=== PATIENT | male | born 1975 | race Native Hawaiian/Other Pacific Islander ===

== ENCOUNTER 2018-03-28 06:23 | Inpatient (IN) | payer MEDICAID, OTHER ==
[2018-03-28 07:06] LABS: Basophils # (Auto) 0.1 K/mm3 (0.0-0.1); Basophils % (Auto) 0.6 % (0.0-1.8); Eosinophils # (Auto) 0.4 K/mm3 (0.0-0.4); Eosinophils % (Auto) 4.7 % (0.0-4.3); Hematocrit 34.9 % (35.5-45.6); Hemoglobin 11.6 gm/dl (11.8-15.2); Lymphocytes # (Auto) 1.8 K/mm3 (1.2-5.4); Lymphocytes % (Auto) 21.7 % (13.4-35.0); Mean Corpuscular HGB Conc 33 % (32-34); Mean Corpuscular Volume 94 fl (84-94); Monocytes # (Auto) 0.5 K/mm3 (0.0-0.8); Monocytes % (Auto) 6.4 % (0.0-7.3); Platelet Count 173 K/mm3 (140-440); Red Blood Count 3.71 M/mm3 (3.65-5.03); Red Cell Distribution Width 14.2 % (13.2-15.2)
[2018-03-28 07:11] LABS: INR 1.01 (0.87-1.13)
[2018-03-28 07:12] LABS: Partial Thromboplastin Time 31.2 Sec. (24.2-36.6)
[2018-03-28 07:23] LABS: Calcium 9.7 mg/dL (8.4-10.2)
[2018-03-28] MEDS ORDERED: KIONEX PO ONE (09:16)
[2018-03-28] MEDS ORDERED: D50W (25GM) Syringe IV ONE ×2 (09:16→12:45)
[2018-03-28] MEDS ORDERED: HumuLIN R IV ONE (09:16)
--- NOTE | 2018-03-28 09:36 | Emergency Department Report ---
ED General Adult HPI - General Chief complaint: Medical Clearance Stated complaint: DIALYSIS Time Seen by Provider: 03/28/18 08:25 Source: patient Mode of arrival: Ambulatory Limitations: No Limitations - History of Present Illness Initial comments: Patient is a 42-year-old male who is presenting with the need for dialysis. Patient states that he has end-stage renal disease and was getting dialysis out of town but he is recently moved here. Patient went to [facility] and was admitted and had dialysis twice there. Last dialysis was 4 days ago. Patient states that he does not have dialysis clinic yet and he was told because he does not live in [facility] that he would not be able to have his dialysis set up from [facility]. Patient denies any nausea vomiting fevers or chills. Patient does state he feels somewhat tight with body fluid overloaded with some mild shortness of breath. Severity scale (0 -10): 0 - Related Data Allergies Allergy/AdvReac Type Severity Reaction Status Date / Time Penicillins Allergy Itching Verified 03/28/18 06:35 ED Review of Systems ROS: Stated complaint: DIALYSIS Other details as noted in HPI Comment: All other systems reviewed and negative ED Past Medical Hx - Past Medical History Hx Hypertension: Yes Hx Renal Disease: Yes (Dialysis M-W-F) - Surgical History Past Surgical History?: Yes Additional Surgical History: AV Fistula Left arm - Social History Smoking Status: Never Smoker Substance Use Type: None ED Physical Exam - General Limitations: No Limitations General appearance: alert, in no apparent distress - Head Head exam: Present: atraumatic, normocephalic - Eye Eye exam: Present: normal appearance - ENT ENT exam: Present: mucous membranes moist - Neck Neck exam: Present: normal inspection - Respiratory Respiratory exam: Present: normal lung sounds bilaterally. Absent: respiratory distress, wheezes, rales, rhonchi - Cardiovascular Cardiovascular Exam: Present: regular rate, normal rhythm. Absent: systolic murmur, diastolic murmur, rubs, gallop - GI/Abdominal GI/Abdominal exam: Present: soft, normal bowel sounds. Absent: distended, tenderness, guarding, rebound - Rectal Rectal exam: Present: deferred - Extremities Exam Extremities exam: Present: normal inspection - Back Exam Back exam: Present: normal inspection - Neurological Exam Neurological exam: Present: alert, oriented X3 - Psychiatric Psychiatric exam: Present: normal affect, normal mood - Skin Skin exam: Present: warm, dry, intact, normal color. Absent: rash ED Course Vital Signs 03/28/18 06:29 Temperature 98.4 F Pulse Rate 89 Respiratory 18 Rate Blood Pressure 151/95 O2 Sat by Pulse 98 Oximetry ED Medical Decision Making - Lab Data Result diagrams: 03/28/18 06:44 03/28/18 08:37 Lab Results 03/28/18 03/28/18 03/28/18 Range/Units 06:44 06:44 06:44 WBC 8.2 (4.5-11.0) K/mm3 RBC 3.71 (3.65-5.03) M/mm3 Hgb 11.6 L (11.8-15.2) gm/dl Hct 34.9 L (35.5-45.6) % MCV 94 (84-94) fl MCH 31 (28-32) pg MCHC 33 (32-34) % RDW 14.2 (13.2-15.2) % Plt Count 173 (140-440) K/mm3 Lymph % (Auto) 21.7 (13.4-35.0) % [facility] % (Auto) 6.4 (0.0-7.3) % Eos % (Auto) 4.7 H (0.0-4.3) % Baso % (Auto) 0.6 (0.0-1.8) % Lymph # 1.8 (1.2-5.4) K/mm3 [facility] # 0.5 (0.0-0.8) K/mm3 Eos # 0.4 (0.0-0.4) K/mm3 Baso # 0.1 (0.0-0.1) K/mm3 Seg Neutrophils % 66.6 (40.0-70.0) % Seg Neutrophils # 5.5 (1.8-7.7) K/mm3 PT 13.7 (12.2-14.9) Sec. INR 1.01 (0.87-1.13) APTT 31.2 (24.2-36.6) Sec. Sodium 146 H (137-145) mmol/L Potassium 8.6 H* (3.6-5.0) mmol/L Chloride 101.7 (98-107) mmol/L Carbon Dioxide 20 L (22-30) mmol/L Anion Gap 33 mmol/L BUN 125 H (9-20) mg/dL Creatinine 16.0 H (0.8-1.5) mg/dL Estimated GFR 3 ml/min BUN/Creatinine Ratio 8 % Glucose 92 (75-100) mg/dL Calcium 9.7 (8.4-10.2) mg/dL Total Bilirubin 0.30 (0.1-1.2) mg/dL AST 11 (5-40) units/L ALT 14 (7-56) units/L Alkaline Phosphatase 76 (35-129) units/L Total Protein 7.0 (6.3-8.2) g/dL Albumin 4.0 (3.9-5) g/dL Albumin/Globulin Ratio 1.3 % 03/28/18 Range/Units 08:37 WBC (4.5-11.0) K/mm3 RBC (3.65-5.03) M/mm3 Hgb (11.8-15.2) gm/dl Hct (35.5-45.6) % MCV (84-94) fl MCH (28-32) pg MCHC (32-34) % RDW (13.2-15.2) % Plt Count (140-440) K/mm3 Lymph % (Auto) (13.4-35.0) % [facility] % (Auto) (0.0-7.3) % Eos % (Auto) (0.0-4.3) % Baso % (Auto) (0.0-1.8) % Lymph # (1.2-5.4) K/mm3 [facility] # (0.0-0.8) K/mm3 Eos # (0.0-0.4) K/mm3 Baso # (0.0-0.1) K/mm3 Seg Neutrophils % (40.0-70.0) % Seg Neutrophils # (1.8-7.7) K/mm3 PT (12.2-14.9) Sec. INR (0.87-1.13) APTT (24.2-36.6) Sec. Sodium (137-145) mmol/L Potassium 8.3 H* (3.6-5.0) mmol/L Chloride (98-107) mmol/L Carbon Dioxide (22-30) mmol/L Anion Gap mmol/L BUN (9-20) mg/dL Creatinine (0.8-1.5) mg/dL Estimated GFR ml/min BUN/Creatinine Ratio % Glucose (75-100) mg/dL Calcium (8.4-10.2) mg/dL Total Bilirubin (0.1-1.2) mg/dL AST (5-40) units/L ALT (7-56) units/L Alkaline Phosphatase (35-129) units/L Total Protein (6.3-8.2) g/dL Albumin (3.9-5) g/dL Albumin/Globulin Ratio % - EKG Data -: EKG Interpreted by Tn - EKG Data 03/28/18 09:35 EKG shows a sinus rhythm at a rate of 76 axis is rightward intervals are otherwise normal there is no ST segment elevations or depressions. Interpretation is 920 - Medical Decision Making Patient's potassium level was elevated and the patient be treated with Kayexalate bicarbonate insulin and D50. Patient to be admitted to the hospitalist at this time. Critical Care Time: Yes (30) Critical care attestation.: If time is entered above; I have spent that time in minutes in the direct care of this critically ill patient, excluding procedure time. ED Disposition Clinical Impression: Hyperkalemia, ESRD (end stage renal disease) on dialysis Disposition: -09 OP ADMIT IP TO THIS HOSP Is pt being admited?: Yes Does the pt Need Aspirin: No Condition: Stable Time of Disposition: 09:45
[2018-03-28] MEDS ORDERED: ZOFRAN IV PRN (10:03)
[2018-03-28] MEDS ORDERED: PROVENTIL IH PRN (10:03)
[2018-03-28] MEDS ORDERED: TYLENOL PO PRN (10:03)
[2018-03-28] MEDS ORDERED: SODIUM CHLORIDE FLUSH SYRINGE 10 ML IV PRN (10:03)
--- NOTE | 2018-03-28 10:11 | History and Physical Report ---
History of Present Illness Date of examination: 03/28/18 Date of admission: 03/28/18 09:45 Chief complaint: Missed dialysis History of present illness: Patient is 42 year old male with past medical history of end-stage renal disease, hypertension, estimated for the past 8 years and has been receiving dialysis while in assisted. He recently was released and removed HAS NOT BEEN ABLE TO SET UP WITH AN OUTPATIENT SCHOOL MANAGER. HE PRESENTS TO US TODAY STATING THAT HE MISSES DIALYSIS AND WAS SEEN IN [place] ABOUT A WEEK AGO WAS DIALYZED AND WAS DISCHARGED. He also did have a critically elevated potassium of 8 with no acute changes on his EKG he denied any chest pain nausea vomiting. He recommended for admission. Past History Past Medical History: ESRD, hypertension Past Surgical History: Other (left arm fist) Social history: lives with family Family history: no significant family history Medications and Allergies Allergies Allergy/AdvReac Type Severity Reaction Status Date / Time Penicillins Allergy Itching Verified 03/28/18 06:35 Home Medications Medication Instructions Recorded Confirmed Last Taken Type Cholecalciferol (Vitamin D3) 50,000 unit PO QWEEK 03/28/18 03/28/18 03/27/18 History [Vitamin D3] Folic Acid [Folvite] 1 mg PO QDAY 03/28/18 03/28/18 03/27/18 History Sevelamer Carbonate [Renvela] 800 mg PO TIDWM 03/28/18 03/28/18 03/27/18 History amLODIPine [Norvasc] 10 mg PO DAILY 03/28/18 03/28/18 03/27/18 History Active Meds: Active Medications Acetaminophen (Tylenol) 650 mg PO Q4H PRN PRN Reason: Pain MILD(1-3)/Fever >100.5/MALLORY Albuterol (Proventil) 2.5 mg IH Q3HRT PRN PRN Reason: Shortness Of Breath Ondansetron HCl (Zofran) 4 mg IV Q8H PRN PRN Reason: Nausea And Vomiting Sodium Chloride (Sodium Chloride Flush Syringe 10 Ml) 10 ml IV BID CHERELLE Sodium Chloride (Sodium Chloride Flush Syringe 10 Ml) 10 ml IV PRN PRN PRN Reason: LINE FLUSH Review of Systems All systems: negative Constitutional: fatigue, weakness, malaise Cardiovascular: no chest pain, no orthopnea, no palpitations, no rapid/irregular heart beat, no lightheadedness, no shortness of breath, no dyspnea on exertion Respiratory: no cough with sputum, no excessive sputum, no shortness of breath, no dyspnea on exertion Exam - Physical Exam Narrative exam: VITAL SIGNS: Reviewed. GENERAL: The patient appeared well nourished and normally developed. Vital signs as documented. HEAD: No signs of head trauma. EYES: Pupils are equal. Extraocular motions intact. EARS: Hearing grossly intact. MOUTH: Oropharynx is normal. NECK: No adenopathy, no JVD. CHEST: Chest with clear breath sounds bilaterally. No wheezes, rales, or rhonchi. CARDIAC: Regular rate and rhythm. S1 and S2, without murmurs, gallops, or rubs. VASCULAR: Upper extremity AV graft otherwise peripheral pulses are normal fluid was noted on the graft.. ABDOMEN: Soft, without detectable tenderness. No sign of distention. No rebound or guarding, and no masses palpated. Bowel Sounds normal. MUSCULOSKELETAL: Good range of motion of all major joints. Extremities without clubbing, cyanosis or edema. NEUROLOGIC EXAM: Alert and oriented x 3. No focal sensory or strength deficit s. Speech normal. Follows commands. PSYCHIATRIC: Mood normal. SKIN: No rash or lesions. - Constitutional Vitals: Temp Pulse Resp BP Pulse Ox 98.4 F 89 18 151/95 98 03/28/18 06:29 03/28/18 06:29 03/28/18 06:29 03/28/18 06:29 03/28/18 06:29 Results - Labs CBC & Chem 7: 03/29/18 04:50 03/29/18 04:50 Labs: Laboratory Last Values WBC 8.2 K/mm3 (4.5-11.0) 03/28/18 06:44 RBC 3.71 M/mm3 (3.65-5.03) 03/28/18 06:44 Hgb 11.6 gm/dl (11.8-15.2) L 03/28/18 06:44 Hct 34.9 % (35.5-45.6) L 03/28/18 06:44 MCV 94 fl (84-94) 03/28/18 06:44 MCH 31 pg (28-32) 03/28/18 06:44 MCHC 33 % (32-34) 03/28/18 06:44 RDW 14.2 % (13.2-15.2) 03/28/18 06:44 Plt Count 173 K/mm3 (140-440) 03/28/18 06:44 Lymph % (Auto) 21.7 % (13.4-35.0) 03/28/18 06:44 [facility] % (Auto) 6.4 % (0.0-7.3) 03/28/18 06:44 Eos % (Auto) 4.7 % (0.0-4.3) H 03/28/18 06:44 Baso % (Auto) 0.6 % (0.0-1.8) 03/28/18 06:44 Lymph # 1.8 K/mm3 (1.2-5.4) 03/28/18 06:44 [facility] # 0.5 K/mm3 (0.0-0.8) 03/28/18 06:44 Eos # 0.4 K/mm3 (0.0-0.4) 03/28/18 06:44 Baso # 0.1 K/mm3 (0.0-0.1) 03/28/18 06:44 Seg Neutrophils % 66.6 % (40.0-70.0) 03/28/18 06:44 Seg Neutrophils # 5.5 K/mm3 (1.8-7.7) 03/28/18 06:44 PT 13.7 Sec. (12.2-14.9) 03/28/18 06:44 INR 1.01 (0.87-1.13) 03/28/18 06:44 APTT 31.2 Sec. (24.2-36.6) 03/28/18 06:44 Sodium 146 mmol/L (137-145) H 03/28/18 06:44 Potassium 8.3 mmol/L (3.6-5.0) H* 03/28/18 08:37 Chloride 101.7 mmol/L (98-107) 03/28/18 06:44 Carbon Dioxide 20 mmol/L (22-30) L 03/28/18 06:44 Anion Gap 33 mmol/L 03/28/18 06:44 BUN 125 mg/dL (9-20) H 03/28/18 06:44 Creatinine 16.0 mg/dL (0.8-1.5) H 03/28/18 06:44 Estimated GFR 3 ml/min 03/28/18 06:44 BUN/Creatinine Ratio 8 % 03/28/18 06:44 Glucose 92 mg/dL (75-100) 03/28/18 06:44 Calcium 9.7 mg/dL (8.4-10.2) 03/28/18 06:44 Total Bilirubin 0.30 mg/dL (0.1-1.2) 03/28/18 06:44 AST 11 units/L (5-40) 03/28/18 06:44 ALT 14 units/L (7-56) 03/28/18 06:44 Alkaline Phosphatase 76 units/L (35-129) 03/28/18 06:44 Total Protein 7.0 g/dL (6.3-8.2) 03/28/18 06:44 Albumin 4.0 g/dL (3.9-5) 03/28/18 06:44 Albumin/Globulin Ratio 1.3 % 03/28/18 06:44 Assessment and Plan Assessment and plan: Patient is 42 year old male with past medical history of end-stage renal disease, hypertension, estimated for the past 8 years and has been receiving dialysis while in assisted. He recently was released and removed HAS NOT BEEN ABLE TO SET UP WITH AN OUTPATIENT SCHOOL MANAGER. HE PRESENTS TO US TODAY STATING THAT HE MISSES DIALYSIS AND WAS SEEN IN [place] ABOUT A WEEK AGO WAS DIALYZED AND WAS DISCHARGED. He also did have a critically elevated potassium of 8 with no acute changes on his EKG he denied any chest pain nausea vomiting. He recommended for admission. ESRD Severe Hyperkalemia HYPERTENSIVE Plan Admit to STEP DOWN UNIT Patient already received the Hyperkalemia cocktail Repeat K level Consult nephrology for emergent dialysis-Discussed with team Case management for outpatient dialysis arrangement Obtain Home medication list DVT/GI prophy Plan discussed with patient and family The high probability of a clinically significant, sudden or life threatening deterioration of the [renal] system(s) required my full and direct attention, intervention and personal management. The aggregate critical care time was [75] minutes. This time is in addition to time spent performing reported procedures but includes the following: [x] Data Review and interpretation [x] Patient assessment and monitoring of vital signs [x] Documentation [x] Medication orders and management Advance Directives: Yes Plan of care discussed with patient/family: Yes
[2018-03-28] MEDS ORDERED: KIONEX ONE (12:38)
[2018-03-28] MEDS ORDERED: HumuLIN R ONE (12:47)
[2018-03-28] MEDS: SODIUM CHLORIDE FLUSH SYRINGE 10 ML IV SCH (13:10)
--- NOTE | 2018-03-28 14:15 | Consultation ---
History of Present Illness - Reason for Consult chronic renal failure, end stage renal disease, hyperkalemia - History of Present Illness Very pleasant 42-year-old male with past medical history significant for end-stage renal disease in the setting of hypertension, on chronic hemodialysis via a left brachiocephalic AV fistula for the past 8 years, being previously dialyzed at the [facility] in [place], presented to the ED secondary to chronic hemodialysis needs. He has recently moved from [place] after being released from jail and is now living with his sister. He unfortunately has not been able to set up chronic outpatient hemodialysis unit since moving from [place]. He has not seen a food sales clerk in the outpatient setting since this move. He was seen at [facility] about a week ago for similar chronic hemodialysis needs. He was dialyzed consecutively on Wednesday and of last week secondary to persistent hyperkalemia. His last hemodialysis session was of last week. He is being evaluated at this time in the emergency room department secondary to significant hyperkalemia with a potassium over 8. He doesn't have any acute abnormalities noted on his EKG. He is in sinus rhythm. He has received both a dose of calcium gluconate as well as insulin and an amp of D50. He was also given a dose of Kayexalate and did have a bowel movement per patient. I have put in stat orders for him to be dialyzed today. His sister is at bedside during the examination. Per patient he is on a Wednesday hemodialysis schedule and as mentioned [facility]. Past History Past Medical History: dialysis, hypertension, renal failure Past Surgical History: Other (AVF placement ) Social history: lives with family, other (recent incarceration, ) Family history: hypertension Medications and Allergies Allergies Allergy/AdvReac Type Severity Reaction Status Date / Time Penicillins Allergy Itching Verified 03/28/18 06:35 Home Medications Medication Instructions Recorded Confirmed Last Taken Type Cholecalciferol (Vitamin D3) 50,000 unit PO QWEEK 03/28/18 03/28/18 03/27/18 History [Vitamin D3] Folic Acid [Folvite] 1 mg PO QDAY 03/28/18 03/28/18 03/27/18 History Sevelamer Carbonate [Renvela] 800 mg PO TIDWM 03/28/18 03/28/18 03/27/18 History amLODIPine [Norvasc] 10 mg PO DAILY 03/28/18 03/28/18 03/27/18 History Active Meds: Active Medications Acetaminophen (Tylenol) 650 mg PO Q4H PRN PRN Reason: Pain MILD(1-3)/Fever >100.5/MALLORY Albuterol (Proventil) 2.5 mg IH Q3HRT PRN PRN Reason: Shortness Of Breath Ondansetron HCl (Zofran) 4 mg IV Q8H PRN PRN Reason: Nausea And Vomiting Sodium Chloride (Sodium Chloride Flush Syringe 10 Ml) 10 ml IV BID CHERELLE Last Admin: 03/28/18 13:10 Dose: 10 ml Documented by: Sodium Chloride (Sodium Chloride Flush Syringe 10 Ml) 10 ml IV PRN PRN PRN Reason: LINE FLUSH Review of Systems All systems: negative Constitutional: fatigue, weakness Exam - Vital Signs Vital signs: Vital Signs Temp Pulse Resp BP Pulse Ox 98.4 F 89 18 151/95 98 03/28/18 06:29 03/28/18 06:29 03/28/18 06:29 03/28/18 06:29 03/28/18 06:29 - General Appearance General appearance: well-developed, well-nourished, appears stated age EENT: ATNC, PERRL, mucous membranes moist Neck: Present: neck supple, trachea midline Respiratory: Clear to Ascultation, Normal Exam Heart: regular, S1S2 Gastrointestinal: Present: normal, normoactive bowel sounds Integumentary: no rash, warm and dry Neurologic: no focal deficit, no asterixis, alert and oriented x3 Musculoskeletal: Present: other (negative edema) Psychiatric: mood/affect appropriate, cooperative Results - Lab Results 03/28/18 06:44 03/28/18 08:37 Most recent lab results Calcium 9.7 mg/dL (8.4-10.2) 03/28/18 06:44 Assessment and Plan - Patient Problems (1) Hyperkalemia Current Visit: Yes Status: Acute Plan to address problem: Orders placed for dialysis today. Will monitor repeat labs and see need for possible second session of dialysis tomorrow. Patient needs to be on a low potassium renal diet. (2) ESRD (end stage renal disease) on dialysis Current Visit: Yes Status: Chronic Plan to address problem: We'll continue patient on hemodialysis regimen on Wednesday schedule. We are working to have patient be placed in a chronic dialysis unit. Will discuss with case management in regards to outpatient placement. Would prefer that he be [facility] at [facility], as our group sees dialysis patients at that unit. Orders placed for hemodialysis today. (3) Hypertensive chronic kidney disease with stage 5 chronic kidney disease or end stage renal disease Current Visit: Yes Status: Chronic Plan to address problem: Continue current antihypertensive regimen. We will monitor closely. (4) Secondary hyperparathyroidism (of renal origin) Current Visit: Yes Status: Acute Plan to address problem: Patient to continue on current binder therapy with sevelamer 1 tablet with meals 3 times a day. We'll continue to monitor calcium, phosphorus, and intact PTH.
[2018-03-28] MEDS ORDERED: NACL 0.9% 100 ML IV PRN (15:57)
[2018-03-28] MEDS ORDERED: NACL 0.9 (PRIMING MACHINE ONLY DIALYSIS) MC ONE (16:33)
[2018-03-28 17:18] LABS: Hepatitis B Surface Antigen Non-Reactive (Negative); Hepatitis C Virus Antibody Non-Reactive (NonReactive)
[2018-03-29 05:26] LABS: Basophils % (Auto) 0.6 % (0.0-1.8); Eosinophils # (Auto) 0.1 K/mm3 (0.0-0.4); Eosinophils % (Auto) 2.2 % (0.0-4.3); Hematocrit 36.2 % (35.5-45.6); Lymphocytes # (Auto) 1.5 K/mm3 (1.2-5.4); Lymphocytes % (Auto) 22.5 % (13.4-35.0); Mean Corpuscular HGB Conc 33 % (32-34); Mean Corpuscular Volume 92 fl (84-94); Monocytes # (Auto) 0.5 K/mm3 (0.0-0.8); Monocytes % (Auto) 7.2 % (0.0-7.3); Platelet Count 159 K/mm3 (140-440); Red Blood Count 3.93 M/mm3 (3.65-5.03)
[2018-03-29 05:48] LABS: Calcium 9.2 mg/dL (8.4-10.2)
[2018-03-29] MEDS ORDERED: NACL 0.9% 100 ML IV PRN (07:34)
--- NOTE | 2018-03-29 07:38 | Progress Note ---
Assessment and Plan - Patient Problems (1) Hyperkalemia Current Visit: Yes Status: Acute Plan to address problem: Orders placed for dialysis today given hyperkalemia this am. Patient needs to be on a low potassium renal diet. (2) ESRD (end stage renal disease) on dialysis Current Visit: Yes Status: Chronic Plan to address problem: We'll continue patient on hemodialysis regimen on Wednesday schedule. Plan for extra session today given level of hyperkalemia noted this am on labs. We are working to have patient be placed in a chronic dialysis unit. Will discuss with case management in regards to outpatient placement. Would prefer that he be placed at [facility], as our group sees dialysis patients at that unit. Orders placed for hemodialysis today. (3) Hypertensive chronic kidney disease with stage 5 chronic kidney disease or end stage renal disease Current Visit: Yes Status: Chronic Plan to address problem: Continue current antihypertensive regimen. We will monitor closely. (4) Secondary hyperparathyroidism (of renal origin) Current Visit: Yes Status: Acute Plan to address problem: Patient to continue on current binder therapy with sevelamer 1 tablet with meals 3 times a day. We'll continue to monitor calcium, phosphorus, and intact PTH. Subjective Date of service: 03/29/18 Interval history: Tolerated HD well, labs noted, with hyperkalemia this am, but better than on first admission. Discussed with the nursing staff and have placed orders for annmarie clark to have another session today. Objective - Vital Signs Vital signs: Vital Signs - 12hr 03/28/18 03/28/18 03/28/18 19:51 20:00 22:00 Temperature 97.2 F L 97.8 F Pulse Rate 85 89 Respiratory 18 Rate Blood Pressure 154/99 03/29/18 03/29/18 00:00 04:00 Temperature 98.8 F 96.6 F L Pulse Rate Respiratory Rate Blood Pressure - General Appearance General appearance: well-developed, well-nourished, appears stated age EENT: ATNC, PERRL Neck: no JVD, no thyromegaly Respiratory: Present: Clear to Ascultation, Normal Exam Cardiology: regular, normal heart rate, S1S2, no murmurs Gastrointestinal: normoactive bowel sounds Integumentary: no rash, warm and dry Neurologic: no focal deficit, no asterixis, alert and oriented x3 Musculoskeletal: other (-edema ) Psychiatric: mood/affect appropriate, cooperative - Lab 03/29/18 04:50 03/29/18 04:50 Most recent lab results Calcium 9.2 mg/dL (8.4-10.2) 03/29/18 04:50 - Allied health notes Allied health notes reviewed: nursing Medications & Allergies - Medications Allergies/Adverse Reactions: Allergies Penicillins Allergy (Verified 03/28/18 06:35) Itching Home Medications: Home Medications Medication Instructions Recorded Confirmed Last Taken Type Cholecalciferol (Vitamin D3) 50,000 unit PO QWEEK 03/28/18 03/28/18 03/27/18 History [Vitamin D3] Folic Acid [Folvite] 1 mg PO QDAY 03/28/18 03/28/18 03/27/18 History Sevelamer Carbonate [Renvela] 800 mg PO TIDWM 03/28/18 03/28/18 03/27/18 History amLODIPine [Norvasc] 10 mg PO DAILY 03/28/18 03/28/18 03/27/18 History Active Medications: Generic Name Dose Route Start Last Admin Trade Name Freq PRN Reason Stop Dose Admin Acetaminophen 650 mg 03/28/18 10:03 Tylenol PO Q4H PRN Pain MILD(1-3)/Fever >100.5/MALLORY Albuterol 2.5 mg 03/28/18 10:03 Proventil IH Q3HRT PRN Shortness Of Breath Sodium Chloride 100 mls @ 999 mls/hr 03/28/18 15:57 Nacl 0.9% IV VERNA PRN Hypotension Ondansetron HCl 4 mg 03/28/18 10:03 Zofran IV Q8H PRN Nausea And Vomiting Sodium Chloride 10 ml 03/28/18 22:00 03/28/18 13:10 Sodium Chloride Flush Syringe 10 Ml IV 10 ml BID CHERELLE Administration Sodium Chloride 10 ml 03/28/18 10:03 Sodium Chloride Flush Syringe 10 Ml IV PRN PRN LINE FLUSH
[2018-03-29] MEDS: RENVELA PO SCH ×2 (12:00→17:44)
[2018-03-29] MEDS: NORVASC PO SCH (12:41)
[2018-03-29] MEDS: SODIUM CHLORIDE FLUSH SYRINGE 10 ML IV SCH ×3 (12:41→22:04)
[2018-03-29] MEDS: FOLVITE PO SCH (12:41)
--- NOTE | 2018-03-29 14:25 | Progress Note ---
Assessment and Plan Assessment and plan: Patient is 42 year old male with past medical history of end-stage renal disease, hypertension, estimated for the past 8 years and has been receiving dialysis [facility] in shelter. He recently was released and removed HAS NOT BEEN ABLE TO SET UP WITH AN OUTPATIENT STOPPERER ASSEMBLER. HE PRESENTS TO US TODAY STATING THAT HE MISSES DIALYSIS AND WAS SEEN IN [place] ABOUT A WEEK AGO WAS DIALYZED AND WAS DISCHARGED. He also did have a critically elevated potassium of 8 with no acute changes on his EKG he denied any chest pain nausea vomiting. He recommended for admission. ESRD Severe Hyperkalemia HYPERTENSIVE Plan Continue supportive care Restart appropraite home medications K elevated again today, will repeat K after dialysis Patient received the Hyperkalemia cocktail in the ED on admission Am LABS Nephrology input noted Case management for outpatient dialysis arrangement Obtain Home medication list DVT/GI prophy Plan discussed with patient and family Can transfer to [facility], [facility] outpatient dialysis and chair time is being arranged History Interval history: Patient seen and examined today, no new complaints. No adverse event reported overnight. Hospitalist Physical - Physical exam Narrative exam: VITAL SIGNS: Reviewed. GENERAL: The patient appeared well nourished and normally developed. Vital signs as documented. HEAD: No signs of head trauma. EYES: Pupils are equal. Extraocular motions intact. EARS: Hearing grossly intact. MOUTH: Oropharynx is normal. NECK: No adenopathy, no JVD. CHEST: Chest with clear breath sounds bilaterally. No wheezes, rales, or rho nchi. CARDIAC: Regular rate and rhythm. S1 and S2, without murmurs, gallops, or rub s. VASCULAR: LEFT Upper extremity AV graft otherwise peripheral pulses are normal fluid was noted on the graft.. ABDOMEN: Soft, without detectable tenderness. No sign of distention. No rebound or guarding, and no masses palpated. Bowel Sounds normal. MUSCULOSKELETAL: Good range of motion of all major joints. Extremities without clubbing, cyanosis or edema. NEUROLOGIC EXAM: Alert and oriented x 3. No focal sensory or strength deficit s. Speech normal. Follows commands. PSYCHIATRIC: Mood normal. SKIN: No rash or lesions. - Constitutional Vitals: Temp Pulse Resp BP Pulse Ox 97.2 F L 78 20 143/87 98 03/29/18 10:35 03/29/18 12:45 03/29/18 12:00 03/29/18 12:45 03/29/18 12:00 Results - Labs CBC & Chem 7: 03/29/18 04:50 03/29/18 04:50 Labs: Laboratory Last Values WBC 6.5 K/mm3 (4.5-11.0) 03/29/18 04:50 RBC 3.93 M/mm3 (3.65-5.03) 03/29/18 04:50 Hgb 12.0 gm/dl (11.8-15.2) 03/29/18 04:50 Hct 36.2 % (35.5-45.6) 03/29/18 04:50 MCV 92 fl (84-94) 03/29/18 04:50 MCH 31 pg (28-32) 03/29/18 04:50 MCHC 33 % (32-34) 03/29/18 04:50 RDW 14.0 % (13.2-15.2) 03/29/18 04:50 Plt Count 159 K/mm3 (140-440) 03/29/18 04:50 Lymph % (Auto) 22.5 % (13.4-35.0) 03/29/18 04:50 [place] % (Auto) 7.2 % (0.0-7.3) 03/29/18 04:50 Eos % (Auto) 2.2 % (0.0-4.3) 03/29/18 04:50 Baso % (Auto) 0.6 % (0.0-1.8) 03/29/18 04:50 Lymph # 1.5 K/mm3 (1.2-5.4) 03/29/18 04:50 [place] # 0.5 K/mm3 (0.0-0.8) 03/29/18 04:50 Eos # 0.1 K/mm3 (0.0-0.4) 03/29/18 04:50 Baso # 0.0 K/mm3 (0.0-0.1) 03/29/18 04:50 Seg Neutrophils % 67.5 % (40.0-70.0) 03/29/18 04:50 Seg Neutrophils # 4.4 K/mm3 (1.8-7.7) 03/29/18 04:50 PT 13.7 Sec. (12.2-14.9) 03/28/18 06:44 INR 1.01 (0.87-1.13) 03/28/18 06:44 APTT 31.2 Sec. (24.2-36.6) 03/28/18 06:44 Sodium 143 mmol/L (137-145) 03/29/18 04:50 Potassium 6.3 mmol/L (3.6-5.0) H* D 03/29/18 04:50 Chloride 99.2 mmol/L (98-107) 03/29/18 04:50 Carbon Dioxide 27 mmol/L (22-30) D 03/29/18 04:50 Anion Gap 23 mmol/L 03/29/18 04:50 BUN 54 mg/dL (9-20) H 03/29/18 04:50 Creatinine 10.6 mg/dL (0.8-1.5) H 03/29/18 04:50 Estimated GFR 5 ml/min 03/29/18 04:50 BUN/Creatinine Ratio 5 % 03/29/18 04:50 Glucose 83 mg/dL (75-100) 03/29/18 04:50 POC Glucose 72 (70-105) 03/28/18 12:36 Calcium 9.2 mg/dL (8.4-10.2) 03/29/18 04:50 Total Bilirubin 0.30 mg/dL (0.1-1.2) 03/28/18 06:44 AST 11 units/L (5-40) 03/28/18 06:44 ALT 14 units/L (7-56) 03/28/18 06:44 Alkaline Phosphatase 76 units/L (35-129) 03/28/18 06:44 Total Protein 7.0 g/dL (6.3-8.2) 03/28/18 06:44 Albumin 4.0 g/dL (3.9-5) 03/28/18 06:44 Albumin/Globulin Ratio 1.3 % 03/28/18 06:44 Hepatitis A IgM Ab Non-reactive (NonReactive) 03/28/18 15:59 Hep Bs Antigen Non-reactive (Negative) 03/28/18 15:59 Hep B Core IgM Ab Non-reactive (NonReactive) 03/28/18 15:59 Hepatitis C Antibody Non-reactive (NonReactive) 03/28/18 15:59
[2018-03-30 05:45] LABS: Hematocrit 36.7 % (35.5-45.6); Hemoglobin 12.3 gm/dl (11.8-15.2); Mean Corpuscular HGB Conc 34 % (32-34); Mean Corpuscular Volume 92 fl (84-94); Platelet Count 147 K/mm3 (140-440); Red Blood Count 3.98 M/mm3 (3.65-5.03); Red Cell Distribution Width 13.6 % (13.2-15.2)
[2018-03-30 05:55] LABS: Calcium 9.5 mg/dL (8.4-10.2)
[2018-03-30] MEDS ORDERED: NACL 0.9% 100 ML IV PRN (07:31)
--- NOTE | 2018-03-30 08:03 | Progress Note ---
Assessment and Plan - Patient Problems (1) Hyperkalemia Current Visit: Yes Status: Acute Plan to address problem: Orders placed for dialysis today per MWF schedule. Had extra session yesterday with improvement noted in potassium levels Patient needs to be on a low potassium renal diet. (2) ESRD (end stage renal disease) on dialysis Current Visit: Yes Status: Chronic Plan to address problem: We'll continue patient on hemodialysis regimen on Wednesday schedule. We are working to have patient be placed in a chronic dialysis unit. Will discuss with case management in regards to outpatient placement. Would prefer that he be placed at [facility], as our group sees dialysis patients at that unit. Orders placed for hemodialysis today. (3) Hypertensive chronic kidney disease with stage 5 chronic kidney disease or end stage renal disease Current Visit: Yes Status: Chronic Plan to address problem: Continue current antihypertensive regimen. We will monitor closely. (4) Secondary hyperparathyroidism (of renal origin) Current Visit: Yes Status: Acute Plan to address problem: Patient to continue on current binder therapy with sevelamer 1 tablet with meals 3 times a day. We'll continue to monitor calcium, phosphorus, and intact PTH. Subjective Date of service: 03/30/18 Interval history: No acute issues overnight. labs noted, and there was improvement in hyperkalemia after extra session of HD yesterday. Plan for HD today per his previous outpatient MWF schedule Objective - Vital Signs Vital signs: Vital Signs - 12hr 03/29/18 03/29/18 03/29/18 20:10 20:20 20:30 Temperature Pulse Rate 88 85 86 Pulse Rate [ From Monitor] Respiratory 11 L 15 19 Rate Blood Pressure 127/80 126/84 126/84 O2 Sat by Pulse 94 96 94 Oximetry 03/29/18 03/29/18 03/29/18 20:40 20:50 21:00 Temperature Pulse Rate 84 88 83 Pulse Rate [ From Monitor] Respiratory 23 15 21 Rate Blood Pressure 126/84 127/80 118/71 O2 Sat by Pulse 93 92 95 Oximetry 03/29/18 03/29/18 03/29/18 21:10 21:20 21:30 Temperature Pulse Rate 98 H 83 91 H Pulse Rate [ From Monitor] Respiratory 18 25 H 19 Rate Blood Pressure 118/71 118/71 118/71 O2 Sat by Pulse 91 96 97 Oximetry 03/29/18 03/29/18 03/29/18 21:40 21:50 22:00 Temperature Pulse Rate 88 88 83 Pulse Rate [ 70 From Monitor] Respiratory 14 15 17 Rate Blood Pressure 118/71 118/71 119/72 O2 Sat by Pulse 93 95 95 Oximetry 03/29/18 03/29/18 03/29/18 22:10 22:20 22:30 Temperature Pulse Rate 95 H 82 79 Pulse Rate [ From Monitor] Respiratory 25 H 14 19 Rate Blood Pressure 119/72 119/72 119/72 O2 Sat by Pulse 95 96 96 Oximetry 03/29/18 03/29/18 03/29/18 22:40 22:50 23:00 Temperature Pulse Rate 85 85 81 Pulse Rate [ From Monitor] Respiratory 16 11 L 21 Rate Blood Pressure 119/72 119/72 115/71 O2 Sat by Pulse 98 97 93 Oximetry 03/29/18 03/29/18 03/29/18 23:10 23:20 23:30 Temperature 98.3 F Pulse Rate 78 78 78 Pulse Rate [ From Monitor] Respiratory 18 20 21 Rate Blood Pressure 115/71 115/71 115/71 O2 Sat by Pulse 94 96 97 Oximetry 03/30/18 05:25 Temperature 98.8 F Pulse Rate 77 Pulse Rate [ From Monitor] Respiratory 18 Rate Blood Pressure 123/81 O2 Sat by Pulse 95 Oximetry - General Appearance General appearance: well-developed, well-nourished, appears stated age EENT: ATNC, PERRL Neck: no JVD, no thyromegaly Respiratory: Present: Clear to Ascultation, Normal Exam Cardiology: regular, S1S2 Gastrointestinal: normal, normoactive bowel sounds Integumentary: no rash, warm and dry Neurologic: no focal deficit, no asterixis, alert and oriented x3 Psychiatric: cooperative - Lab 03/30/18 04:31 03/30/18 04:31 Most recent lab results Calcium 9.5 mg/dL (8.4-10.2) 03/30/18 04:31 - Allied health notes Allied health notes reviewed: nursing Medications & Allergies - Medications Allergies/Adverse Reactions: Allergies Penicillins Allergy (Verified 03/28/18 06:35) Itching Home Medications: Home Medications Medication Instructions Recorded Confirmed Last Taken Type Cholecalciferol (Vitamin D3) 50,000 unit PO QWEEK 02/1103/28/18 03/27/18 History [Vitamin D3] Folic Acid [Folvite] 1 mg PO QDAY 03/28/18 03/28/18 03/27/18 History Sevelamer Carbonate [Renvela] 800 mg PO TIDWM 03/28/18 03/28/18 03/27/18 History amLODIPine [Norvasc] 10 mg PO DAILY 03/28/18 03/28/18 03/27/18 History Active Medications: Generic Name Dose Route Start Last Admin Trade Name Freq PRN Reason Stop Dose Admin Acetaminophen 650 mg 03/28/18 10:03 Tylenol PO Q4H PRN Pain MILD(1-3)/Fever >100.5/MALLORY Albuterol 2.5 mg 03/28/18 10:03 Proventil IH Q3HRT PRN Shortness Of Breath Amlodipine Besylate 10 mg 03/29/18 10:00 03/29/18 12:41 Norvasc PO Not Given DAILY [facility] Ergocalciferol 50,000 unit 03/30/18 10:00 Vitamin D2 PO [facility] Folic Acid 1 mg 03/29/18 10:00 03/29/18 12:41 Folvite PO Not Given QDAY [facility] Sodium Chloride 100 mls @ 999 mls/hr 03/30/18 07:31 Nacl 0.9% IV VERNA PRN Hypotension Ondansetron HCl 4 mg 03/28/18 10:03 Zofran IV Q8H PRN Nausea And Vomiting Sevelamer Carbonate 800 mg 03/29/18 12:00 03/29/18 17:44 Renvela PO 800 mg TIDWM CHERELLE Administration Sodium Chloride 10 ml 03/28/18 22:00 03/29/18 22:04 Sodium Chloride Flush Syringe 10 Ml IV 10 ml BID CHERELLE Administration Sodium Chloride 10 ml 03/28/18 10:03 Sodium Chloride Flush Syringe 10 Ml IV PRN PRN LINE FLUSH
[2018-03-30] MEDS: NORVASC PO SCH (09:30)
[2018-03-30] MEDS: VITAMIN D2 PO SCH (09:34)
[2018-03-30] MEDS: RENVELA PO SCH ×2 (09:35→18:38)
[2018-03-30] MEDS: FOLVITE PO SCH (09:36)
[2018-03-30] MEDS: SODIUM CHLORIDE FLUSH SYRINGE 10 ML IV SCH ×2 (10:00→21:18)
--- NOTE | 2018-03-30 16:25 | Progress Note ---
Assessment and Plan Assessment and plan: Patient is 42 year old male with past medical history of end-stage renal disease, hypertension, estimated for the past 8 years and has been receiving dialysis while in [facility]. He recently was released and removed HAS NOT BEEN ABLE TO SET UP WITH AN OUTPATIENT PROFESSOR OF GENETICS. HE PRESENTS TO US TODAY STATING THAT HE MISSES DIALYSIS AND WAS SEEN IN [place] ABOUT A WEEK AGO WAS DIALYZED AND WAS DISCHARGED. He also did have a critically elevated potassium of 8 with no acute changes on his EKG he denied any chest pain nausea vomiting. He recommended for admission. ESRD Severe Hyperkalemia HYPERTENSIVE Plan Continue supportive care Restart appropriate home medications K elevated again today, will repeat K after dialysis Patient received the Hyperkalemia cocktail in the ED on admission Am LABS Nephrology input noted Case management for outpatient dialysis arrangement Obtain Home medication list DVT/GI prophy Plan discussed with patient and family Can transfer to [facility], will outpatient dialysis and chair time is being arranged History Interval history: Patient seen and examined today, no new complaints. No adverse event reported overnight. Hospitalist Physical - Physical exam Narrative exam: VITAL SIGNS: Reviewed. GENERAL: The patient appeared well nourished and normally developed. Vital signs as documented. HEAD: No signs of head trauma. EYES: Pupils are equal. Extraocular motions intact. EARS: Hearing grossly intact. MOUTH: Oropharynx is normal. NECK: No adenopathy, no JVD. CHEST: Chest with clear breath sounds bilaterally. No wheezes, rales, or rhon chi. CARDIAC: Regular rate and rhythm. S1 and S2, without murmurs, gallops, or rubs . VASCULAR: LEFT Upper extremity AV graft otherwise peripheral pulses are normal fluid was noted on the graft.. ABDOMEN: Soft, without detectable tenderness. No sign of distention. No rebound or guarding, and no masses palpated. Bowel Sounds normal. MUSCULOSKELETAL: Good range of motion of all major joints. Extremities without clubbing, cyanosis or edema. NEUROLOGIC EXAM: Alert and oriented x 3. No focal sensory or strength deficits . Speech normal. Follows commands. PSYCHIATRIC: Mood normal. SKIN: No rash or lesions. - Constitutional Vitals: Temp Pulse Resp BP Pulse Ox 98.3 F 79 20 129/95 99 03/30/18 14:02 03/30/18 14:02 03/30/18 14:02 03/30/18 14:02 03/30/18 14:02 Results - Labs CBC & Chem 7: 03/30/18 04:31 03/30/18 04:31 Labs: Laboratory Last Values WBC 5.3 K/mm3 (4.5-11.0) 03/30/18 04:31 RBC 3.98 M/mm3 (3.65-5.03) 03/30/18 04:31 Hgb 12.3 gm/dl (11.8-15.2) 03/30/18 04:31 Hct 36.7 % (35.5-45.6) 03/30/18 04:31 MCV 92 fl (84-94) 03/30/18 04:31 MCH 31 pg (28-32) 03/30/18 04:31 MCHC 34 % (32-34) 03/30/18 04:31 RDW 13.6 % (13.2-15.2) 03/30/18 04:31 Plt Count 147 K/mm3 (140-440) 03/30/18 04:31 Lymph % (Auto) 22.5 % (13.4-35.0) 03/29/18 04:50 [place] % (Auto) 7.2 % (0.0-7.3) 03/29/18 04:50 Eos % (Auto) 2.2 % (0.0-4.3) 03/29/18 04:50 Baso % (Auto) 0.6 % (0.0-1.8) 03/29/18 04:50 Lymph # 1.5 K/mm3 (1.2-5.4) 03/29/18 04:50 [place]bert # 0.5 K/mm3 (0.0-0.8) 03/29/18 04:50 Eos # 0.1 K/mm3 (0.0-0.4) 03/29/18 04:50 Baso # 0.0 K/mm3 (0.0-0.1) 03/29/18 04:50 Seg Neutrophils % 67.5 % (40.0-70.0) 03/29/18 04:50 Seg Neutrophils # 4.4 K/mm3 (1.8-7.7) 03/29/18 04:50 PT 13.7 Sec. (12.2-14.9) 03/28/18 06:44 INR 1.01 (0.87-1.13) 03/28/18 06:44 APTT 31.2 Sec. (24.2-36.6) 03/28/18 06:44 Sodium 140 mmol/L (137-145) 03/30/18 04:31 Potassium 5.3 mmol/L (3.6-5.0) H 03/30/18 04:31 Chloride 96.4 mmol/L (98-107) L 03/30/18 04:31 Carbon Dioxide 27 mmol/L (22-30) 03/30/18 04:31 Anion Gap 22 mmol/L 03/30/18 04:31 BUN 37 mg/dL (9-20) H 03/30/18 04:31 Creatinine 8.3 mg/dL (0.8-1.5) H 03/30/18 04:31 Estimated GFR 7 ml/min 03/30/18 04:31 BUN/Creatinine Ratio 4 % 03/30/18 04:31 Glucose 84 mg/dL (75-100) 03/30/18 04:31 POC Glucose 72 (70-105) 03/28/18 12:36 Calcium 9.5 mg/dL (8.4-10.2) 03/30/18 04:31 Total Bilirubin 0.30 mg/dL (0.1-1.2) 03/28/18 06:44 AST 11 units/L (5-40) 03/28/18 06:44 ALT 14 units/L (7-56) 03/28/18 06:44 Alkaline Phosphatase 76 units/L (35-129) 03/28/18 06:44 Total Protein 7.0 g/dL (6.3-8.2) 03/28/18 06:44 Albumin 4.0 g/dL (3.9-5) 03/28/18 06:44 Albumin/Globulin Ratio 1.3 % 03/28/18 06:44 Hepatitis A IgM Ab Non-reactive (NonReactive) 03/28/18 15:59 Hep Bs Antigen Non-reactive (Negative) 03/28/18 15:59 Hep B Core IgM Ab Non-reactive (NonReactive) 03/28/18 15:59 Hepatitis C Antibody Non-reactive (NonReactive) 03/28/18 15:59
[2018-03-30] MEDS ORDERED: NACL 0.9 (PRIMING MACHINE ONLY DIALYSIS) MC ONE (17:25)
[2018-03-31 07:11] LABS: Calcium 10.2 mg/dL (8.4-10.2)
[2018-03-31] MEDS: RENVELA PO SCH ×3 (09:39→19:00)
[2018-03-31] MEDS: FOLVITE PO SCH (09:39)
[2018-03-31] MEDS: SODIUM CHLORIDE FLUSH SYRINGE 10 ML IV SCH ×2 (10:00→23:03)
--- NOTE | 2018-03-31 14:52 | Progress Note ---
Assessment and Plan Assessment and plan: Patient is 42 year old male with past medical history of end-stage renal disease, hypertension, estimated for the past 8 years and has been receiving dialysis while in [facility]. He recently was released and removed HAS NOT BEEN ABLE TO SET UP WITH AN OUTPATIENT SPECIAL FORCES WEAPONS SERGEANT. HE PRESENTS TO US TODAY STATING THAT HE MISSES DIALYSIS AND WAS SEEN IN [place] ABOUT A WEEK AGO WAS DIALYZED AND WAS DISCHARGED. He also did have a critically elevated potassium of 8 with no acute changes on his EKG he denied any chest pain nausea vomiting. He recommended for admission. ESRD Severe Hyperkalemia HYPERTENSIVE Plan Continue supportive care Restart appropriate home medications K elevated again today, will repeat K after dialysis Patient received the Hyperkalemia cocktail in the ED on admission Am LABS Nephrology input noted Case management for outpatient dialysis arrangement DVT/GI prophy Plan discussed with patient and family Awaiting home dialysis set up. Can be discharged once that is set up History Interval history: Patient seen and examined today, no new complaints. No adverse event reported overnight. Hospitalist Physical - Physical exam Narrative exam: VITAL SIGNS: Reviewed. GENERAL: The patient appeared well nourished and normally developed. Vital signs as documented. HEAD: No signs of head trauma. EYES: Pupils are equal. Extraocular motions intact. EARS: Hearing grossly intact. MOUTH: Oropharynx is normal. NECK: No adenopathy, no JVD. CHEST: Chest with clear breath sounds bilaterally. No wheezes, rales, or rhonchi. CARDIAC: Regular rate and rhythm. S1 and S2, without murmurs, gallops, or rubs. VASCULAR: LEFT Upper extremity AV graft otherwise peripheral pulses are normal fluid was noted on the graft.. ABDOMEN: Soft, without detectable tenderness. No sign of distention. No rebound or guarding, and no masses palpated. Bowel Sounds normal. MUSCULOSKELETAL: Good range of motion of all major joints. Extremities without clubbing, cyanosis or edema. NEUROLOGIC EXAM: Alert and oriented x 3. No focal sensory or strength deficits. Speech normal. Follows commands. PSYCHIATRIC: Mood normal. SKIN: No rash or lesions. - Constitutional Vitals: Temp Pulse Resp BP Pulse Ox 98.2 F 80 19 139/98 97 03/31/18 11:43 03/31/18 05:25 03/31/18 11:43 03/31/18 11:43 03/31/18 05:25 Results - Labs CBC & Chem 7: 03/30/18 04:31 03/31/18 06:30 Labs: Laboratory Last Values WBC 5.3 K/mm3 (4.5-11.0) 03/30/18 04:31 RBC 3.98 M/mm3 (3.65-5.03) 03/30/18 04:31 Hgb 12.3 gm/dl (11.8-15.2) 03/30/18 04:31 Hct 36.7 % (35.5-45.6) 03/30/18 04:31 MCV 92 fl (84-94) 03/30/18 04:31 MCH 31 pg (28-32) 03/30/18 04:31 MCHC 34 % (32-34) 03/30/18 04:31 RDW 13.6 % (13.2-15.2) 03/30/18 04:31 Plt Count 147 K/mm3 (140-440) 03/30/18 04:31 Lymph % (Auto) 22.5 % (13.4-35.0) 03/29/18 04:50 [place] % (Auto) 7.2 % (0.0-7.3) 03/29/18 04:50 Eos % (Auto) 2.2 % (0.0-4.3) 03/29/18 04:50 Baso % (Auto) 0.6 % (0.0-1.8) 03/29/18 04:50 Lymph # 1.5 K/mm3 (1.2-5.4) 03/29/18 04:50 [place] # 0.5 K/mm3 (0.0-0.8) 03/29/18 04:50 Eos # 0.1 K/mm3 (0.0-0.4) 03/29/18 04:50 Baso # 0.0 K/mm3 (0.0-0.1) 03/29/18 04:50 Seg Neutrophils % 67.5 % (40.0-70.0) 03/29/18 04:50 Seg Neutrophils # 4.4 K/mm3 (1.8-7.7) 03/29/18 04:50 PT 13.7 Sec. (12.2-14.9) 03/28/18 06:44 INR 1.01 (0.87-1.13) 03/28/18 06:44 APTT 31.2 Sec. (24.2-36.6) 03/28/18 06:44 Sodium 139 mmol/L (137-145) 03/31/18 06:30 Potassium 5.1 mmol/L (3.6-5.0) H 03/31/18 06:30 Chloride 94.6 mmol/L (98-107) L 03/31/18 06:30 Carbon Dioxide 29 mmol/L (22-30) 03/31/18 06:30 Anion Gap 21 mmol/L 03/31/18 06:30 BUN 37 mg/dL (9-20) H 03/31/18 06:30 Creatinine 8.0 mg/dL (0.8-1.5) H 03/31/18 06:30 Estimated GFR 7 ml/min 03/31/18 06:30 BUN/Creatinine Ratio 5 % 03/31/18 06:30 Glucose 91 mg/dL (75-100) 03/31/18 06:30 POC Glucose 72 (70-105) 03/28/18 12:36 Calcium 10.2 mg/dL (8.4-10.2) 03/31/18 06:30 Total Bilirubin 0.30 mg/dL (0.1-1.2) 03/28/18 06:44 AST 11 units/L (5-40) 03/28/18 06:44 ALT 14 units/L (7-56) 03/28/18 06:44 Alkaline Phosphatase 76 units/L (35-129) 03/28/18 06:44 Total Protein 7.0 g/dL (6.3-8.2) 03/28/18 06:44 Albumin 4.0 g/dL (3.9-5) 03/28/18 06:44 Albumin/Globulin Ratio 1.3 % 03/28/18 06:44 Hepatitis A IgM Ab Non-reactive (NonReactive) 03/28/18 15:59 Hep Bs Antigen Non-reactive (Negative) 03/28/18 15:59 Hep B Core IgM Ab Non-reactive (NonReactive) 03/28/18 15:59 Hepatitis C Antibody Non-reactive (NonReactive) 03/28/18 15:59
[2018-03-31] MEDS: NORVASC PO SCH (15:09)
--- NOTE | 2018-03-31 20:25 | XRay Report ---
FINAL REPORT PROCEDURE: XR CHEST 1V AP TECHNIQUE: Chest radiograph anteroposterior view. CPT 37631 HISTORY: fluid overload COMPARISON: No prior studies are available for comparison. FINDINGS: Heart: Normal. Mediastinum/Vessels: Normal. Lungs/Pleural space: Normal. Bony thorax: No acute osseous abnormality. Life support devices: None. IMPRESSION: No acute cardiopulmonary abnormality.
[2018-04-01 06:47] LABS: Calcium 9.9 mg/dL (8.4-10.2)
[2018-04-01] MEDS: RENVELA PO SCH ×3 (09:08→17:00)
[2018-04-01] MEDS: FOLVITE PO SCH (09:13)
[2018-04-01] MEDS: SODIUM CHLORIDE FLUSH SYRINGE 10 ML IV SCH (10:00)
[2018-04-01] MEDS: NORVASC PO SCH (10:00)
--- NOTE | 2018-04-01 11:46 | Progress Note ---
Assessment and Plan Assessment and plan: Acute hyperkalemia kayexalate for HD scheduled ESRD on HD per renal await outpt HD arrangement. HTN continue meds Nocompliant with HD couseled Further pt mgt per hospital course Disposition Plan: Kayexalate,. Outpt HD Total Time Spent with Patient (Minutes): 30 mins History Interval history: HPI Patient is 42 year old male with past medical history of end-stage renal disease, hypertension, estimated for the past 8 years and has been receiving dialysis while in [place]. He recently was released and removed HAS NOT BEEN ABLE TO SET UP WITH AN OUTPATIENT SALT GRINDER. HE PRESENTS TO US TODAY STATING THAT HE MISSES DIALYSIS AND WAS SEEN IN [place] ABOUT A WEEK AGO WAS DIALYZED AND WAS DISCHARGED. He also did have a critically elevated potassium of 8 with no acute changes on his EKG he denied any chest pain nausea vomiting. He recommended for admission. Subjective: Seen and exam by bedside, No new complaints, K 6.0. scheduled for HD today. Ankle Monitor noted on pt's left ankle. Hospitalist Physical - Constitutional Vitals: Temp Pulse Resp BP Pulse Ox 97.8 F 71 19 139/98 96 04/01/18 11:38 04/01/18 05:19 04/01/18 11:38 04/01/18 11:38 04/01/18 05:19 General appearance: Present: no acute distress, well-nourished - EENT Eyes: Present: PERRL, EOM intact ENT: hearing intact, clear oral mucosa - Neck Neck: Present: supple, normal ROM - Respiratory Respiratory: bilateral: CTA, negative: diminished, rales, rhonchi, wheezing - Cardiovascular Rhythm: regular Heart Sounds: Present: S1 & S2 - Extremities Extremities: pulses intact, pulses symmetrical, normal temperature, abnormal (ankle monitor left ankle) Peripheral Pulses: within normal limits - Abdominal General gastrointestinal: soft, non-tender, non-distended, normal bowel sounds - Integumentary Integumentary: Present: clear, warm, dry - Psychiatric Psychiatric: appropriate mood/affect, intact judgment & insight, memory intact - Neurologic Neurologic: CNII-XII intact, moves all extremities - Allied Health Allied health notes reviewed: nursing, social work, case management Results - Labs CBC & Chem 7: 03/30/18 04:31 04/01/18 06:07 Labs: Laboratory Last Values WBC 5.3 K/mm3 (4.5-11.0) 03/30/18 04:31 RBC 3.98 M/mm3 (3.65-5.03) 03/30/18 04:31 Hgb 12.3 gm/dl (11.8-15.2) 03/30/18 04:31 Hct 36.7 % (35.5-45.6) 03/30/18 04:31 MCV 92 fl (84-94) 03/30/18 04:31 MCH 31 pg (28-32) 03/30/18 04:31 MCHC 34 % (32-34) 03/30/18 04:31 RDW 13.6 % (13.2-15.2) 03/30/18 04:31 Plt Count 147 K/mm3 (140-440) 03/30/18 04:31 Lymph % (Auto) 22.5 % (13.4-35.0) 03/29/18 04:50 [place] % (Auto) 7.2 % (0.0-7.3) 03/29/18 04:50 Eos % (Auto) 2.2 % (0.0-4.3) 03/29/18 04:50 Baso % (Auto) 0.6 % (0.0-1.8) 03/29/18 04:50 Lymph # 1.5 K/mm3 (1.2-5.4) 03/29/18 04:50 [place] # 0.5 K/mm3 (0.0-0.8) 03/29/18 04:50 Eos # 0.1 K/mm3 (0.0-0.4) 03/29/18 04:50 Baso # 0.0 K/mm3 (0.0-0.1) 03/29/18 04:50 Seg Neutrophils % 67.5 % (40.0-70.0) 03/29/18 04:50 Seg Neutrophils # 4.4 K/mm3 (1.8-7.7) 03/29/18 04:50 PT 13.7 Sec. (12.2-14.9) 03/28/18 06:44 INR 1.01 (0.87-1.13) 03/28/18 06:44 APTT 31.2 Sec. (24.2-36.6) 03/28/18 06:44 Sodium 142 mmol/L (137-145) 04/01/18 06:07 Potassium 6.0 mmol/L (3.6-5.0) H 04/01/18 06:07 Chloride 96.7 mmol/L (98-107) L 04/01/18 06:07 Carbon Dioxide 26 mmol/L (22-30) 04/01/18 06:07 Anion Gap 25 mmol/L 04/01/18 06:07 BUN 58 mg/dL (9-20) H 04/01/18 06:07 Creatinine 10.9 mg/dL (0.8-1.5) H 04/01/18 06:07 Estimated GFR 5 ml/min 04/01/18 06:07 BUN/Creatinine Ratio 5 % 04/01/18 06:07 Glucose 84 mg/dL (75-100) 04/01/18 06:07 POC Glucose 72 (70-105) 03/28/18 12:36 Calcium 9.9 mg/dL (8.4-10.2) 04/01/18 06:07 Total Bilirubin 0.30 mg/dL (0.1-1.2) 03/28/18 06:44 AST 11 units/L (5-40) 03/28/18 06:44 ALT 14 units/L (7-56) 03/28/18 06:44 Alkaline Phosphatase 76 units/L (35-129) 03/28/18 06:44 Total Protein 7.0 g/dL (6.3-8.2) 03/28/18 06:44 Albumin 4.0 g/dL (3.9-5) 03/28/18 06:44 Albumin/Globulin Ratio 1.3 % 03/28/18 06:44 Hepatitis A IgM Ab Non-reactive (NonReactive) 03/28/18 15:59 Hep Bs Antigen Non-reactive (Negative) 03/28/18 15:59 Hep B Core IgM Ab Non-reactive (NonReactive) 03/28/18 15:59 Hepatitis C Antibody Non-reactive (NonReactive) 03/28/18 15:59 - Imaging and Cardiology EKG: report reviewed
[2018-04-01] MEDS ORDERED: KIONEX PO NR (12:30)
[2018-04-01] MEDS ORDERED: NACL 0.9% 100 ML IV PRN (15:57)
[2018-04-01] MEDS ORDERED: NACL 0.9 (PRIMING MACHINE ONLY DIALYSIS) MC ONE (17:35)
[2018-04-02 02:12] LABS: Calcium 9.7 mg/dL (8.4-10.2)
[2018-04-02] MEDS: RENVELA PO SCH ×3 (08:57→17:21)
[2018-04-02] MEDS: NORVASC PO SCH (09:00)
[2018-04-02] MEDS: FOLVITE PO SCH (09:00)
[2018-04-02] MEDS: SODIUM CHLORIDE FLUSH SYRINGE 10 ML IV SCH ×2 (09:02→22:21)
--- NOTE | 2018-04-02 10:52 | Progress Note ---
Assessment and Plan - Patient Problems (1) Hyperkalemia Current Visit: Yes Status: Acute Plan to address problem: Improved with HD. Counseled on importance of low K diet. May need to assess in the outpatient setting for possible veltassa given his recurrent hyperkalemia issues. (2) ESRD (end stage renal disease) on dialysis Current Visit: Yes Status: Chronic Plan to address problem: We'll continue patient on hemodialysis regimen on Wednesday schedule. We are working to have patient be placed in a chronic dialysis unit. Will discuss with case management in regards to outpatient placement. Would prefer that he be placed at [facility], as our group sees dialysis patients at that unit. No acute HD needs today. Pending placement at outpatient facility. Otherwise he is stable from a renal standpoint. Have discussed with case management pumping station supervisor today and will be working to confirm placement. Will follow up. (3) Hypertensive chronic kidney disease with stage 5 chronic kidney disease or end stage renal disease Current Visit: Yes Status: Chronic Plan to address problem: Continue current antihypertensive regimen. We will monitor closely. (4) Secondary hyperparathyroidism (of renal origin) Current Visit: Yes Status: Acute Plan to address problem: Patient to continue on current binder therapy with sevelamer 1 tablet with meals 3 times a day. We'll continue to monitor calcium, phosphorus, and intact PTH. Subjective Date of service: 04/02/18 Interval history: No acute issues, tolerated HD yesterday without any issues. Labs noted and stable. Pending placement. Have discussed with CM pumping station supervisor who will be in touch with the dialysis unit to confirm placement, and hopeful discharge today. Objective - Vital Signs Vital signs: Vital Signs - 12hr 04/01/18 04/02/18 04/02/18 23:12 05:49 09:00 Temperature 98.2 F 98.4 F Pulse Rate 95 H 74 Respiratory 20 20 Rate Blood Pressure 139/90 144/91 137/93 O2 Sat by Pulse 99 92 Oximetry - General Appearance General appearance: well-developed, well-nourished, appears stated age EENT: ATNC, PERRL Neck: no JVD, no thyromegaly, no carotid bruit Respiratory: Present: Clear to Ascultation Cardiology: regular, S1S2 Gastrointestinal: normal, normoactive bowel sounds Integumentary: no rash, warm and dry Neurologic: no focal deficit, no asterixis, alert and oriented x3 Musculoskeletal: other (-edema ) Psychiatric: mood/affect appropriate, cooperative - Lab 03/30/18 04:31 04/02/18 01:13 Most recent lab results Calcium 9.7 mg/dL (8.4-10.2) 04/02/18 01:13 - Allied health notes Allied health notes reviewed: nursing Medications & Allergies - Medications Allergies/Adverse Reactions: Allergies Penicillins Allergy (Verified 03/28/18 06:35) Itching Home Medications: Home Medications Medication Instructions Recorded Confirmed Last Taken Type Cholecalciferol (Vitamin D3) 50,000 unit PO QWEEK 03/28/18 03/28/18 03/27/18 History [Vitamin D3] Folic Acid [Folvite] 1 mg PO QDAY 03/28/18 03/28/18 03/27/18 History Sevelamer Carbonate [Renvela] 800 mg PO TIDWM 03/28/18 03/28/18 03/27/18 History amLODIPine [Norvasc] 10 mg PO DAILY 03/28/18 03/28/18 03/27/18 History Active Medications: Generic Name Dose Route Start Last Admin Trade Name Freq PRN Reason Stop Dose Admin Acetaminophen 650 mg 03/28/18 10:03 Tylenol PO Q4H PRN Pain MILD(1-3)/Fever >100.5/MALLORY Albuterol 2.5 mg 03/28/18 10:03 Proventil IH Q3HRT PRN Shortness Of Breath Amlodipine Besylate 10 mg 03/29/18 10:00 04/02/18 09:00 Norvasc PO 10 mg DAILY CHERELLE Administration Ergocalciferol 50,000 unit 03/30/18 10:00 03/30/18 09:34 Vitamin D2 PO 50,000 unit We CHERELLE Administration Folic Acid 1 mg 03/29/18 10:00 04/02/18 09:00 Folvite PO 1 mg QDAY CHERELLE Administration Sodium Chloride 100 mls @ 999 mls/hr 03/30/18 07:31 Nacl 0.9% IV VERNA PRN Hypotension Ondansetron HCl 4 mg 03/28/18 10:03 Zofran IV Q8H PRN Nausea And Vomiting Sevelamer Carbonate 800 mg 03/29/18 12:00 04/02/18 08:57 Renvela PO 800 mg TIDWM CHERELLE Administration Sodium Chloride 10 ml 03/28/18 22:00 04/02/18 09:02 Sodium Chloride Flush Syringe 10 Ml IV 10 ml BID CHERELLE Administration Sodium Chloride 10 ml 03/28/18 10:03 Sodium Chloride Flush Syringe 10 Ml IV PRN PRN LINE FLUSH
--- NOTE | 2018-04-02 15:45 | Progress Note ---
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 Acute hyperkalemia- for HD scheduled HTN -controlled continue meds Nocompliant with HD couseled Disposition Plan: Discharge home when outpatient hemodialysis set up is complete Total Time Spent with Patient (Minutes): > 32 mins Subjective Date of service: 04/02/18 Principal diagnosis: end-stage renal disease on hemodialysis, hyperkalemia Interval history: Patient seen and examined. Lying in bed. In no obvious distress. Remains afebrile. Objective - Exam Narrative Exam: Constitutional: Well-nourished well-developed. In no distress Head: Normocephalic atraumatic Eyes: Pupils are equal round and reactive to light Nose: No enlarged turbinates, no septal deviation. Mouth: Moist mucous membranes. Neck: Supple no thyromegaly. No bruit. No JVD Heart: Regular rate and rhythm, S1-S2 normal. No rubs murmurs or gallop Lungs: Clear to auscultation bilaterally. no rales or rhonchi Abdomen: Soft, nontender. Bowel sound are present. Extremities: No edema, no cyanosis, no clubbing. Neuro: Alert oriented Oriented x3. No focal sensory or motor deficit. Skin: No rashes or hyperpigmented spots Musculoskeletal system: No joint pain or swelling Hematological: No petechia or subcutanous hemorrhages. Immunological: No multiple septic spots on the skin Lymphatic: No generalized lymphadenopathy Psychiatry: Euthymic. Calm. - Constitutional Vitals: Vital Signs - 12hr 04/02/18 04/02/18 04/02/18 05:49 09:00 10:00 Temperature 98.4 F Pulse Rate 74 74 Respiratory 20 Rate Blood Pressure 144/91 137/93 O2 Sat by Pulse 92 Oximetry 04/02/18 12:30 Temperature 98.4 F Pulse Rate 76 Respiratory 16 Rate Blood Pressure 138/95 O2 Sat by Pulse 98 Oximetry - Labs CBC & Chem 7: 03/30/18 04:31 04/02/18 01:13 Labs: Abnormal lab results 04/02/18 Range/Units 01:13 Chloride 95.6 L (98-107) mmol/L BUN 35 H (9-20) mg/dL Creatinine 9.0 H (0.8-1.5) mg/dL Glucose 74 L (75-100) mg/dL
[2018-04-03 05:24] LABS: Basophils # (Auto) 0.1 K/mm3 (0.0-0.1); Basophils % (Auto) 1.1 % (0.0-1.8); Eosinophils # (Auto) 0.6 K/mm3 (0.0-0.4); Eosinophils % (Auto) 8.1 % (0.0-4.3); Hematocrit 36.8 % (35.5-45.6); Hemoglobin 12.6 gm/dl (11.8-15.2); Lymphocytes # (Auto) 2.8 K/mm3 (1.2-5.4); Lymphocytes % (Auto) 36.9 % (13.4-35.0); Mean Corpuscular HGB Conc 34 % (32-34); Mean Corpuscular Volume 91 fl (84-94); Monocytes # (Auto) 0.6 K/mm3 (0.0-0.8); Monocytes % (Auto) 7.9 % (0.0-7.3); Platelet Count 178 K/mm3 (140-440); Red Blood Count 4.06 M/mm3 (3.65-5.03); Red Cell Distribution Width 13.4 % (13.2-15.2)
[2018-04-03 05:51] LABS: Calcium 10.1 mg/dL (8.4-10.2)
[2018-04-03] MEDS: RENVELA PO SCH ×3 (08:24→17:15)
[2018-04-03] MEDS: NORVASC PO SCH (11:03)
[2018-04-03] MEDS: SODIUM CHLORIDE FLUSH SYRINGE 10 ML IV SCH ×2 (11:03→21:43)
[2018-04-03] MEDS: FOLVITE PO SCH (11:03)
[2018-04-03] MEDS ORDERED: KIONEX PO ONE (11:05)
--- NOTE | 2018-04-03 11:14 | Progress Note ---
Assessment and Plan - Patient Problems (1) Hyperkalemia Current Visit: Yes Status: Acute Plan to address problem: Elevated again this am. Counseled on importance of low K diet. May need to assess in the outpatient setting for possible veltassa given his recurrent hyperkalemia issues. (2) ESRD (end stage renal disease) on dialysis Current Visit: Yes Status: Chronic Plan to address problem: We'll continue patient on hemodialysis regimen on Wednesday schedule. We are working to have patient be placed in a chronic dialysis unit. Will discuss with case management in regards to outpatient placement. Would prefer that he be placed at [facility], as our group sees dialysis patients at that unit. No acute HD needs today. Pending placement at outpatient facility. Otherwise he is stable from a renal standpoint. Have discussed with case management internal controls manager today and will be working to confirm placement. Will follow up. Patient will receive one dose of kayexulate this morning. (3) Hypertensive chronic kidney disease with stage 5 chronic kidney disease or end stage renal disease Current Visit: Yes Status: Chronic Plan to address problem: Continue current antihypertensive regimen. We will monitor closely. (4) Secondary hyperparathyroidism (of renal origin) Current Visit: Yes Status: Acute Plan to address problem: Patient to continue on current binder therapy with sevelamer 1 tablet with meals 3 times a day. We'll continue to monitor calcium, phosphorus, and intact PTH. Subjective Date of service: 04/03/18 Principal diagnosis: end-stage renal disease on hemodialysis, hyperkalemia Interval history: No acute issues overnight. Labs noted this am and potassium elevated at 5.5. Will order for dose of kayexulate. Objective - Vital Signs Vital signs: Vital Signs - 12hr 04/03/18 04/03/18 05:23 11:03 Temperature 98.5 F Pulse Rate 76 Respiratory 16 Rate Blood Pressure 120/82 133/91 O2 Sat by Pulse 94 Oximetry - General Appearance General appearance: well-developed, well-nourished, appears stated age EENT: ATNC, PERRL Neck: no JVD, no thyromegaly, supple Respiratory: Present: Clear to Ascultation, Normal Exam Cardiology: regular, normal heart rate, S1S2 Gastrointestinal: normal, normoactive bowel sounds Integumentary: no rash, warm and dry Neurologic: no focal deficit, no asterixis, alert and oriented x3 Musculoskeletal: other (-edema ) Psychiatric: cooperative - Lab 04/03/18 04:46 04/03/18 04:46 Most recent lab results Calcium 10.1 mg/dL (8.4-10.2) 04/03/18 04:46 Medications & Allergies - Medications Allergies/Adverse Reactions: Allergies Penicillins Allergy (Verified 03/28/18 06:35) Itching Home Medications: Home Medications Medication Instructions Recorded Confirmed Last Taken Type Cholecalciferol (Vitamin D3) 50,000 unit PO QWEEK 03/28/18 03/28/18 03/27/18 History [Vitamin D3] Folic Acid [Folvite] 1 mg PO QDAY 03/28/18 03/28/18 03/27/18 History Sevelamer Carbonate [Renvela] 800 mg PO TIDWM 03/28/18 03/28/18 03/27/18 History amLODIPine [Norvasc] 10 mg PO DAILY 03/28/18 03/28/18 03/27/18 History Active Medications: Generic Name Dose Route Start Last Admin Trade Name Freq PRN Reason Stop Dose Admin Acetaminophen 650 mg 03/28/18 10:03 Tylenol PO Q4H PRN Pain MILD(1-3)/Fever >100.5/MALLORY Albuterol 2.5 mg 03/28/18 10:03 Proventil IH Q3HRT PRN Shortness Of Breath Amlodipine Besylate 10 mg 03/29/18 10:00 04/03/18 11:03 Norvasc PO 10 mg DAILY CHERELLE Administration Ergocalciferol 50,000 unit 03/30/18 10:00 03/30/18 09:34 Vitamin D2 PO 50,000 unit We CHERELLE Administration Folic Acid 1 mg 03/29/18 10:00 04/03/18 11:03 Folvite PO 1 mg QDAY CHERELLE Administration Sodium Chloride 100 mls @ 999 mls/hr 03/30/18 07:31 Nacl 0.9% IV VERNA PRN Hypotension Ondansetron HCl 4 mg 03/28/18 10:03 Zofran IV Q8H PRN Nausea And Vomiting Sevelamer Carbonate 800 mg 03/29/18 12:00 04/03/18 08:24 Renvela PO 800 mg TIDWM CHERELLE Administration Sodium Chloride 10 ml 03/28/18 22:00 04/03/18 11:03 Sodium Chloride Flush Syringe 10 Ml IV 10 ml BID CHERELLE Administration Sodium Chloride 10 ml 03/28/18 10:03 Sodium Chloride Flush Syringe 10 Ml IV PRN PRN LINE FLUSH
--- NOTE | 2018-04-03 17:21 | Progress Note ---
Assessment and Plan Patient is 42 year old male with past medical history of end-stage renal disease, hypertension, estimated for the past 8 years and has been receiving dialysis while in [place]. He recently was released and removed HAS NOT BEEN ABLE TO SET UP WITH AN OUTPATIENT MACHINE OPERATOR. HE PRESENTS TO US TODAY STATING THAT HE MISSES DIALYSIS AND WAS SEEN IN [place] ABOUT A WEEK AGO WAS DIALYZED AND WAS DISCHARGED. He also did have a critically elevated potassium of 8 with no acute changes on his EKG he denied any chest pain nausea vomiting. He recommended for admission. ESRD on HD On hemodialysis on [facility] Home Health Caregiver following await outpt HD arrangement. Acute hyperkalemia- improved for HD scheduled HTN -controlled continue meds Noncompliant with HD couseled Disposition Plan: Discharge home when outpatient hemodialysis set up is complete Total Time Spent with Patient (Minutes): > 32 mins Subjective Date of service: 04/03/18 Principal diagnosis: end-stage renal disease on hemodialysis, hyperkalemia Interval history: Patient seen and examined. Lying in bed. In no obvious distress. Remains afebrile. Objective - Exam Narrative Exam: Constitutional: Well-nourished well-developed. In no distress Head: Normocephalic atraumatic Eyes: Pupils are equal round and reactive to light Nose: No enlarged turbinates, no septal deviation. Mouth: Moist mucous membranes. Neck: Supple no thyromegaly. No bruit. No JVD Heart: Regular rate and rhythm, S1-S2 normal. No rubs murmurs or gallop Lungs: Clear to auscultation bilaterally. no rales or rhonchi Abdomen: Soft, nontender. Bowel sound are present. Extremities: No edema, no cyanosis, no clubbing. Neuro: Alert oriented Oriented x3. No focal sensory or motor deficit. Skin: No rashes or hyperpigmented spots Musculoskeletal system: No joint pain or swelling Hematological: No petechia or subcutanous hemorrhages. Immunological: No multiple septic spots on the skin Lymphatic: No generalized lymphadenopathy Psychiatry: Euthymic. Calm. - Constitutional Vitals: Vital Signs - 12hr 04/03/18 04/03/18 04/03/18 05:23 11:03 11:40 Temperature 98.5 F 97.7 F Pulse Rate 76 77 Respiratory 16 16 Rate Blood Pressure 120/82 133/91 144/95 O2 Sat by Pulse 94 98 Oximetry - Labs CBC & Chem 7: 04/03/18 04:46 04/03/18 04:46 Labs: Abnormal lab results 04/03/18 04/03/18 Range/Units 04:46 04:46 Lymph % (Auto) 36.9 H (13.4-35.0) % [place] % (Auto) 7.9 H (0.0-7.3) % Eos % (Auto) 8.1 H (0.0-4.3) % Eos # 0.6 H (0.0-0.4) K/mm3 Potassium 5.5 H (3.6-5.0) mmol/L Chloride 95.1 L (98-107) mmol/L BUN 61 H (9-20) mg/dL Creatinine 12.3 H (0.8-1.5) mg/dL
[2018-04-04 07:11] LABS: Basophils # (Auto) 0.1 K/mm3 (0.0-0.1); Eosinophils # (Auto) 0.6 K/mm3 (0.0-0.4); Eosinophils % (Auto) 7.9 % (0.0-4.3); Hematocrit 34.9 % (35.5-45.6); Hemoglobin 11.7 gm/dl (11.8-15.2); Lymphocytes # (Auto) 2.5 K/mm3 (1.2-5.4); Lymphocytes % (Auto) 32.8 % (13.4-35.0); Mean Corpuscular HGB Conc 34 % (32-34); Mean Corpuscular Volume 90 fl (84-94); Monocytes # (Auto) 0.6 K/mm3 (0.0-0.8); Monocytes % (Auto) 7.1 % (0.0-7.3); Platelet Count 193 K/mm3 (140-440); Red Blood Count 3.87 M/mm3 (3.65-5.03); Red Cell Distribution Width 13.4 % (13.2-15.2)
[2018-04-04 07:32] LABS: Calcium 9.7 mg/dL (8.4-10.2)
--- NOTE | 2018-04-04 07:47 | Progress Note ---
Assessment and Plan - Patient Problems (1) ESRD (end stage renal disease) on dialysis Current Visit: Yes Status: Chronic Plan to address problem: Continue hemodialysis on a Wednesday, Wednesday and Wednesday schedule. Awaiting arrangements for outpatient dialysis to be set up (2) Hyperkalemia Current Visit: Yes Status: Acute Plan to address problem: Continue low potassium diet. 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 Follow up serum intact PTH as an outpatient Subjective Date of service: 04/04/18 Principal diagnosis: end-stage renal disease on hemodialysis, hyperkalemia Interval history: Patient seen lying in bed. He has no complaints. No chest pain, shortness of breath or swelling. No nausea or vomiting Objective - Exam Narrative Exam: Middle aged male lying in bed in no acute distress HEENT: NCAT, pink oral mucous membrane Neck: Supple, no venous distention CVS: S1S2 RRR with no murmur, rub or gallop Chest: Clear to auscultation Abdomen: Protuberant, soft, nontender, no organomegaly, bowel sounds are present Extremities: No edema Neuro: Awake, alert no focal deficits - Vital Signs Vital signs: Vital Signs - 12hr 04/03/18 04/04/18 23:29 05:59 Temperature 98.3 F 97.8 F Pulse Rate 87 73 Respiratory 18 18 Rate Blood Pressure 151/94 120/83 O2 Sat by Pulse 99 98 Oximetry - Lab 04/04/18 06:44 04/04/18 06:44 Most recent lab results Calcium 9.7 mg/dL (8.4-10.2) 04/04/18 06:44 Medications & Allergies - Medications Allergies/Adverse Reactions: Allergies Penicillins Allergy (Verified 03/28/18 06:35) Itching Home Medications: Home Medications Medication Instructions Recorded Confirmed Last Taken Type Cholecalciferol (Vitamin D3) 50,000 unit PO QWEEK 03/28/18 03/28/18 03/27/18 History [Vitamin D3] Folic Acid [Folvite] 1 mg PO QDAY 03/28/18 03/28/18 03/27/18 History Sevelamer Carbonate [Renvela] 800 mg PO TIDWM 03/28/18 03/28/18 03/27/18 History amLODIPine [Norvasc] 10 mg PO DAILY 03/28/18 03/28/18 03/27/18 History Active Medications: Generic Name Dose Route Start Last Admin Trade Name Freq PRN Reason Stop Dose Admin Acetaminophen 650 mg 03/28/18 10:03 Tylenol PO Q4H PRN Pain MILD(1-3)/Fever >100.5/MALLORY Albuterol 2.5 mg 03/28/18 10:03 Proventil IH Q3HRT PRN Shortness Of Breath Amlodipine Besylate 10 mg 03/29/18 10:00 04/03/18 11:03 Norvasc PO 10 mg DAILY CHERELLE Administration Ergocalciferol 50,000 unit 03/30/18 10:00 03/30/18 09:34 Vitamin D2 PO 50,000 unit We CHERELLE Administration Folic Acid 1 mg 03/29/18 10:00 04/03/18 11:03 Folvite PO 1 mg QDAY CEHRELLE Administration Sodium Chloride 100 mls @ 999 mls/hr 03/30/18 07:31 Nacl 0.9% IV VERNA PRN Hypotension Ondansetron HCl 4 mg 03/28/18 10:03 Zofran IV Q8H PRN Nausea And Vomiting Sevelamer Carbonate 800 mg 03/29/18 12:00 04/03/18 17:15 Renvela PO 800 mg TIDWM CHERELLE Administration Sodium Chloride 10 ml 03/28/18 22:00 04/03/18 21:43 Sodium Chloride Flush Syringe 10 Ml IV 10 ml BID CHERELLE Administration Sodium Chloride 10 ml 03/28/18 10:03 Sodium Chloride Flush Syringe 10 Ml IV PRN PRN LINE FLUSH
[2018-04-04] MEDS ORDERED: NACL 0.9% 100 ML IV PRN (10:28)
[2018-04-04] MEDS: RENVELA PO SCH ×3 (13:08→20:17)
[2018-04-04] MEDS: SODIUM CHLORIDE FLUSH SYRINGE 10 ML IV SCH ×3 (13:08→22:12)
[2018-04-04] MEDS: FOLVITE PO SCH (13:11)
--- NOTE | 2018-04-04 16:17 | Progress Note ---
Assessment and Plan Patient is 42 year old male with past medical history of end-stage renal disease, hypertension, estimated for the past 8 years and has been receiving dialysis while in assisted. He recently was released and removed HAS NOT BEEN ABLE TO SET UP WITH AN OUTPATIENT SPRING MAKER. HE PRESENTS TO US TODAY STATING THAT HE MISSES DIALYSIS AND WAS SEEN IN [place] ABOUT A WEEK AGO WAS DIALYZED AND WAS DISCHARGED. He also did have a critically elevated potassium of 8 with no acute changes on his EKG he denied any chest pain nausea vomiting. He recommended for admission. ESRD on HD On hemodialysis on [facility] Exit Booth Agent following await outpt HD arrangement. Acute hyperkalemia- improved for HD scheduled HTN -controlled continue meds Noncompliant with HD couseled Disposition Plan: Discharge home when outpatient hemodialysis set up is established Total Time Spent with Patient (Minutes): > 32 mins Subjective Date of service: 04/04/18 Principal diagnosis: end-stage renal disease on hemodialysis, hyperkalemia Interval history: Patient seen and examined. In no obvious distress. Remains afebrile. Objective - Exam Narrative Exam: Constitutional: Well-nourished well-developed. In no distress Head: Normocephalic atraumatic Eyes: Pupils are equal round and reactive to light Nose: No enlarged turbinates, no septal deviation. Mouth: Moist mucous membranes. Neck: Supple no thyromegaly. No bruit. No JVD Heart: Regular rate and rhythm, S1-S2 normal. No rubs murmurs or gallop Lungs: Clear to auscultation bilaterally. no rales or rhonchi Abdomen: Soft, nontender. Bowel sound are present. Extremities: No edema, no cyanosis, no clubbing. Neuro: Alert oriented Oriented x3. No focal sensory or motor deficit. Skin: No rashes or hyperpigmented spots Musculoskeletal system: No joint pain or swelling Hematological: No petechia or subcutanous hemorrhages. Immunological: No multiple septic spots on the skin Lymphatic: No generalized lymphadenopathy Psychiatry: Euthymic. Calm. - Constitutional Vitals: Vital Signs - 12hr 04/04/18 04/04/18 04/04/18 05:59 12:11 14:00 Temperature 97.8 F 97.7 F 98.2 F Pulse Rate 73 85 76 Respiratory 18 20 18 Rate Blood Pressure 120/83 154/109 152/102 O2 Sat by Pulse 98 99 Oximetry 04/04/18 04/04/18 04/04/18 14:15 14:30 14:45 Temperature Pulse Rate 77 81 83 Respiratory Rate Blood Pressure 133/90 137/87 141/86 O2 Sat by Pulse Oximetry 04/04/18 04/04/18 04/04/18 15:00 15:15 15:30 Temperature Pulse Rate 85 84 84 Respiratory Rate Blood Pressure 135/85 133/78 128/82 O2 Sat by Pulse Oximetry 04/04/18 04/04/18 15:45 16:00 Temperature Pulse Rate 85 84 Respiratory Rate Blood Pressure 118/77 116/80 O2 Sat by Pulse Oximetry - Labs CBC & Chem 7: 04/04/18 06:44 04/04/18 06:44 Labs: Abnormal lab results 04/04/18 04/04/18 Range/Units 06:44 06:44 Hgb 11.7 L (11.8-15.2) gm/dl Hct 34.9 L (35.5-45.6) % Eos % (Auto) 7.9 H (0.0-4.3) % Eos # 0.6 H (0.0-0.4) K/mm3 Potassium 5.6 H (3.6-5.0) mmol/L Chloride 95.4 L (98-107) mmol/L BUN 87 H (9-20) mg/dL Creatinine 15.8 H (0.8-1.5) mg/dL
[2018-04-04] MEDS: NORVASC PO SCH (17:37)
[2018-04-04] MEDS ORDERED: NACL 0.9 (PRIMING MACHINE ONLY DIALYSIS) MC ONE (18:07)
[2018-04-05 08:25] LABS: Basophils # (Auto) 0.1 K/mm3 (0.0-0.1); Eosinophils # (Auto) 0.5 K/mm3 (0.0-0.4); Eosinophils % (Auto) 6.5 % (0.0-4.3); Hematocrit 37.5 % (35.5-45.6); Hemoglobin 12.6 gm/dl (11.8-15.2); Lymphocytes # (Auto) 2.5 K/mm3 (1.2-5.4); Mean Corpuscular HGB Conc 34 % (32-34); Mean Corpuscular Volume 90 fl (84-94); Monocytes # (Auto) 0.6 K/mm3 (0.0-0.8); Platelet Count 206 K/mm3 (140-440); Red Blood Count 4.17 M/mm3 (3.65-5.03); Red Cell Distribution Width 13.3 % (13.2-15.2)
--- NOTE | 2018-04-05 08:29 | Progress Note ---
Assessment and Plan - Patient Problems (1) ESRD (end stage renal disease) on dialysis Current Visit: Yes Status: Chronic Plan to address problem: Continue hemodialysis on a Wednesday, Wednesday and Wednesday schedule. Awaiting arrangements for outpatient dialysis to be set up. Patient was started on dialysis while he was incarcerated in [facility] and so he's never been dialyzed in an outpatient dialysis clinic. He is uninsured. (2) Hyperkalemia Current Visit: Yes Status: Acute Plan to address problem: Continue low potassium diet. 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 Follow up serum intact PTH as an outpat ient Subjective Date of service: 04/05/18 Principal diagnosis: end-stage renal disease on hemodialysis, hyperkalemia Interval history: Patient seen lying in bed. He has no complaints. No chest pain, shortness of breath or swelling. No nausea or vomiting. Tolerated dialysis yesterday with no problems Objective - Exam Narrative Exam: Middle aged male lying in bed in no acute distress HEENT: NCAT, pink oral mucous membrane Neck: Supple, no venous distention CVS: S1S2 RRR with no murmur, rub or gallop Chest: Clear to auscultation Abdomen: Protuberant, soft, nontender, no organomegaly, bowel sounds are present Extremities: No edema Neuro: Awake, alert no focal deficits - Vital Signs Vital signs: Vital Signs - 12hr 04/04/18 04/04/18 04/05/18 22:00 23:43 05:57 Temperature 99.0 F 98.2 F Pulse Rate 88 73 Respiratory 18 18 20 Rate Blood Pressure 120/81 131/91 O2 Sat by Pulse 98 99 Oximetry - Lab 04/05/18 07:16 04/04/18 06:44 Most recent lab results Calcium 9.7 mg/dL (8.4-10.2) 04/04/18 06:44 Medications & Allergies - Medications Allergies/Adverse Reactions: Allergies Penicillins Allergy (Verified 03/28/18 06:35) Itching Home Medications: Home Medications Medication Instructions Recorded Confirmed Last Taken Type Cholecalciferol (Vitamin D3) 50,000 unit PO QWEEK 03/28/18 03/28/18 03/27/18 History [Vitamin D3] Folic Acid [Folvite] 1 mg PO QDAY 03/28/18 03/28/18 03/27/18 History Sevelamer Carbonate [Renvela] 800 mg PO TIDWM 03/28/18 03/28/18 03/27/18 History amLODIPine [Norvasc] 10 mg PO DAILY 03/28/18 03/28/18 03/27/18 History Active Medications: Generic Name Dose Route Start Last Admin Trade Name Freq PRN Reason Stop Dose Admin Acetaminophen 650 mg 03/28/18 10:03 Tylenol PO Q4H PRN Pain MILD(1-3)/Fever >100.5/MALLORY Albuterol 2.5 mg 03/28/18 10:03 Proventil IH Q3HRT PRN Shortness Of Breath Amlodipine Besylate 10 mg 03/29/18 10:00 04/04/18 17:37 Norvasc PO Not Given DAILY CHERELLE Ergocalciferol 50,000 unit 03/30/18 10:00 03/30/18 09:34 Vitamin D2 PO 50,000 unit We [facility] Administration Folic Acid 1 mg 03/29/18 10:00 04/04/18 13:11 Folvite PO 1 mg QDAY CHERELLE Administration Sodium Chloride 100 mls @ 999 mls/hr 04/04/18 10:28 Nacl 0.9% IV VERNA PRN Hypotension Ondansetron HCl 4 mg 03/28/18 10:03 Zofran IV Q8H PRN Nausea And Vomiting Sevelamer Carbonate 800 mg 03/29/18 12:00 04/04/18 20:17 Renvela PO Not Given TIDWM CHERELLE Sodium Chloride 10 ml 03/28/18 22:00 04/04/18 22:12 Sodium Chloride Flush Syringe 10 Ml IV 10 ml BID CHERELLE Administration Sodium Chloride 10 ml 03/28/18 10:03 Sodium Chloride Flush Syringe 10 Ml IV PRN PRN LINE FLUSH
[2018-04-05 08:41] LABS: Albumin 4.1 g/dL (3.9-5); Calcium 10.1 mg/dL (8.4-10.2)
[2018-04-05] MEDS: RENVELA PO SCH ×3 (10:32→18:24)
[2018-04-05] MEDS: FOLVITE PO SCH (10:32)
[2018-04-05] MEDS: SODIUM CHLORIDE FLUSH SYRINGE 10 ML IV SCH ×2 (10:33→21:30)
[2018-04-05] MEDS: NORVASC PO SCH (10:46)
--- NOTE | 2018-04-05 17:23 | Progress Note ---
Assessment and Plan Assessment and plan: ESRD on HD -On hemodialysis on MWF -Fl[employer] following -awaiting outpt HD arrangement. Hyperkalemia -Resolved HTN -controlled on meds Noncompliant with HD -Patient counseled Disposition: awaiting outpt HD arrangement. History Interval history: Patient has no new complaints. Hospitalist Physical - Constitutional Vitals: Temp Pulse Resp BP Pulse Ox 98.2 F 79 20 137/97 99 04/05/18 16:44 04/05/18 16:44 04/05/18 16:44 04/05/18 16:44 04/05/18 16:44 General appearance: Present: no acute distress, well-nourished - EENT Eyes: Present: PERRL, EOM intact ENT: hearing intact, clear oral mucosa - Neck Neck: Present: supple - Respiratory Respiratory effort: normal Respiratory: bilateral: CTA - Cardiovascular Rhythm: regular Heart Sounds: Present: S1 & S2 - Extremities Extremities: No edema - Abdominal General gastrointestinal: soft, non-tender, non-distended, normal bowel sounds - Neurologic Neurologic: CNII-XII intact Results - Labs CBC & Chem 7: 04/05/18 07:16 04/05/18 07:16 Labs: Laboratory Last Values WBC 7.3 K/mm3 (4.5-11.0) 04/05/18 07:16 RBC 4.17 M/mm3 (3.65-5.03) 04/05/18 07:16 Hgb 12.6 gm/dl (11.8-15.2) 04/05/18 07:16 Hct 37.5 % (35.5-45.6) 04/05/18 07:16 MCV 90 fl (84-94) 04/05/18 07:16 MCH 30 pg (28-32) 04/05/18 07:16 MCHC 34 % (32-34) 04/05/18 07:16 RDW 13.3 % (13.2-15.2) 04/05/18 07:16 Plt Count 206 K/mm3 (140-440) 04/05/18 07:16 Lymph % (Auto) 34.0 % (13.4-35.0) 04/05/18 07:16 [place] % (Auto) 8.0 % (0.0-7.3) H 04/05/18 07:16 Eos % (Auto) 6.5 % (0.0-4.3) H 04/05/18 07:16 Baso % (Auto) 1.0 % (0.0-1.8) 04/05/18 07:16 Lymph # 2.5 K/mm3 (1.2-5.4) 04/05/18 07:16 [place] # 0.6 K/mm3 (0.0-0.8) 04/05/18 07:16 Eos # 0.5 K/mm3 (0.0-0.4) H 04/05/18 07:16 Baso # 0.1 K/mm3 (0.0-0.1) 04/05/18 07:16 Seg Neutrophils % 50.5 % (40.0-70.0) 04/05/18 07:16 Seg Neutrophils # 3.7 K/mm3 (1.8-7.7) 04/05/18 07:16 PT 13.7 Sec. (12.2-14.9) 03/28/18 06:44 INR 1.01 (0.87-1.13) 03/28/18 06:44 APTT 31.2 Sec. (24.2-36.6) 03/28/18 06:44 Sodium 139 mmol/L (137-145) 04/05/18 07:16 Potassium 4.8 mmol/L (3.6-5.0) 04/05/18 07:16 Chloride 92.3 mmol/L (98-107) L 04/05/18 07:16 Carbon Dioxide 26 mmol/L (22-30) 04/05/18 07:16 Anion Gap 26 mmol/L 04/05/18 07:16 BUN 45 mg/dL (9-20) H 04/05/18 07:16 Creatinine 10.3 mg/dL (0.8-1.5) H 04/05/18 07:16 Estimated GFR 6 ml/min 04/05/18 07:16 BUN/Creatinine Ratio 4 % 04/05/18 07:16 Glucose 78 mg/dL (75-100) 04/05/18 07:16 POC Glucose 72 (70-105) 03/28/18 12:36 Calcium 10.1 mg/dL (8.4-10.2) 04/05/18 07:16 Total Bilirubin 0.40 mg/dL (0.1-1.2) 04/05/18 07:16 AST 11 units/L (5-40) 04/05/18 07:16 ALT 12 units/L (7-56) 04/05/18 07:16 Alkaline Phosphatase 71 units/L (35-129) 04/05/18 07:16 Total Protein 7.4 g/dL (6.3-8.2) 04/05/18 07:16 Albumin 4.1 g/dL (3.9-5) 04/05/18 07:16 Albumin/Globulin Ratio 1.2 % 04/05/18 07:16 Hepatitis A IgM Ab Non-reactive (NonReactive) 03/28/18 15:59 Hep Bs Antigen Non-reactive (Negative) 03/28/18 15:59 Hep B Core IgM Ab Non-reactive (NonReactive) 03/28/18 15:59 Hepatitis C Antibody Non-reactive (NonReactive) 03/28/18 15:59 Nutrition/Malnutrition Assess - Dietary Evaluation Nutrition/Malnutrition Findings: Nutrition Notes Start: 04/05/18 08:56 Freq: Status: Active Protocol: Document 04/05/18 08:56 ER (Rec: 04/05/18 08:57 ER [id number]) Co-Sign 04/05/18 08:56 LP Nutrition Notes Need for Assessment generated from: LOS Initial or Follow up Brief Note Current Diet Renal Diet Subjective/Other Information Pt. screened for LOS. Pt. eating 100%. Nutrition Intervention Revisit per MD consult or patient Sign Off request:
[2018-04-06] MEDS: RENVELA PO SCH ×3 (08:17→17:54)
--- NOTE | 2018-04-06 11:13 | Progress Note ---
Assessment and Plan - Patient Problems (1) ESRD (end stage renal disease) on dialysis Current Visit: Yes Status: Chronic Plan to address problem: Continue hemodialysis on a Wednesday, Wednesday and Wednesday schedule. Awaiting arrangements for outpatient dialysis to be set up. Patient was started on dialysis while he was incarcerated in [facility] and so he's never been dialyzed in an outpatient dialysis clinic. Hopefully arrangements can be fin alized today for him to do dialysis at [facility] (2) Hyperkalemia Current Visit: Yes Status: Acute Plan to address problem: Continue low potassium diet. 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 Follow up serum intact PTH as an outpatient Subjective Date of service: 04/06/18 Principal diagnosis: end-stage renal disease on hemodialysis, hyperkalemia Interval history: Patient seen lying in bed on dialysis. He has no complaints. No chest pain, shortness of breath or swelling. No nausea or vomiting. Blood pressure 142/95 pulse 78 ultrafiltration 2.5 L Q 350/700 Objective - Exam Narrative Exam: Middle aged male lying in bed in no acute distress HEENT: NCAT, pink oral mucous membrane Neck: Supple, no venous distention CVS: S1S2 RRR with no murmur, rub or gallop Chest: Clear to auscultation Abdomen: Protuberant, soft, nontender, no organomegaly, bowel sounds are present Extremities: No edema Neuro: Awake, alert no focal deficits - Vital Signs Vital signs: Vital Signs - 12hr 04/05/18 04/06/18 23:19 05:51 Temperature 98.9 F 98.2 F Pulse Rate 80 64 Respiratory 20 20 Rate Blood Pressure 148/92 141/88 O2 Sat by Pulse 99 96 Oximetry - Lab 04/05/18 07:16 04/05/18 07:16 Most recent lab results Calcium 10.1 mg/dL (8.4-10.2) 04/05/18 07:16 Medications & Allergies - Medications Allergies/Adverse Reactions: Allergies Penicillins Allergy (Verified 03/28/18 06:35) Itching Home Medications: Home Medications Medication Instructions Recorded Confirmed Last Taken Type Cholecalciferol (Vitamin D3) 50,000 unit PO QWEEK 03/28/18 03/28/18 03/27/18 History [Vitamin D3] Folic Acid [Folvite] 1 mg PO QDAY 03/28/18 03/28/18 03/27/18 History Sevelamer Carbonate [Renvela] 800 mg PO TIDWM 03/28/18 03/28/18 03/27/18 History amLODIPine [Norvasc] 10 mg PO DAILY 03/28/18 03/28/18 03/27/18 History Active Medications: Generic Name Dose Route Start Last Admin Trade Name Freq PRN Reason Stop Dose Admin Acetaminophen 650 mg 03/28/18 10:03 Tylenol PO Q4H PRN Pain MILD(1-3)/Fever >100.5/MALLORY Albuterol 2.5 mg 03/28/18 10:03 Proventil IH Q3HRT PRN Shortness Of Breath Amlodipine Besylate 10 mg 03/29/18 10:00 04/05/18 10:46 Norvasc PO 10 mg DAILY CHERELLE Administration Ergocalciferol 50,000 unit 03/30/18 10:00 03/30/18 09:34 Vitamin D2 PO 50,000 unit We CHERELLE Administration Folic Acid 1 mg 03/29/18 10:00 04/05/18 10:32 Folvite PO 1 mg QDAY CHERELLE Administration Sodium Chloride 100 mls @ 999 mls/hr 04/04/18 10:28 Nacl 0.9% IV VERNA PRN Hypotension Ondansetron HCl 4 mg 03/28/18 10:03 Zofran IV Q8H PRN Nausea And Vomiting Sevelamer Carbonate 800 mg 03/29/18 12:00 04/06/18 08:17 Renvela PO 800 mg TIDWM CHERELLE Administration Sodium Chloride 10 ml 03/28/18 22:00 04/05/18 21:30 Sodium Chloride Flush Syringe 10 Ml IV 10 ml BID CHERELLE Administration Sodium Chloride 10 ml 03/28/18 10:03 Sodium Chloride Flush Syringe 10 Ml IV PRN PRN LINE FLUSH
[2018-04-06] MEDS ORDERED: NACL 0.9 (PRIMING MACHINE ONLY DIALYSIS) MC ONE (11:20)
--- NOTE | 2018-04-06 12:59 | Progress Note ---
Assessment and Plan Assessment and plan: ESRD on HD -On hemodialysis on MWF -Paper Guillotine Operator following -awaiting outpt HD arrangement. Hyperkalemia -Resolved HTN -controlled on meds Noncompliant with HD -Patient counseled Disposition: awaiting outpt HD arrangement before d/c. History Interval history: Patient has no new complaints. Hospitalist Physical - Constitutional Vitals: Temp Pulse Resp BP Pulse Ox 98.7 F 86 18 166/86 96 04/06/18 10:00 04/06/18 12:00 04/06/18 10:00 04/06/18 12:00 04/06/18 05:51 General appearance: Present: no acute distress, well-nourished - EENT Eyes: Present: PERRL, EOM intact ENT: hearing intact, clear oral mucosa - Neck Neck: Present: supple - Respiratory Respiratory effort: normal Respiratory: bilateral: CTA - Cardiovascular Rhythm: regular Heart Sounds: Present: S1 & S2 - Extremities Extremities: No edema - Abdominal General gastrointestinal: soft, non-tender, non-distended, normal bowel sounds - Neurologic Neurologic: CNII-XII intact Results - Labs CBC & Chem 7: 04/05/18 07:16 04/05/18 07:16 Labs: Laboratory Last Values WBC 7.3 K/mm3 (4.5-11.0) 04/05/18 07:16 RBC 4.17 M/mm3 (3.65-5.03) 04/05/18 07:16 Hgb 12.6 gm/dl (11.8-15.2) 04/05/18 07:16 Hct 37.5 % (35.5-45.6) 04/05/18 07:16 MCV 90 fl (84-94) 04/05/18 07:16 MCH 30 pg (28-32) 04/05/18 07:16 MCHC 34 % (32-34) 04/05/18 07:16 RDW 13.3 % (13.2-15.2) 04/05/18 07:16 Plt Count 206 K/mm3 (140-440) 04/05/18 07:16 Lymph % (Auto) 34.0 % (13.4-35.0) 04/05/18 07:16 [place] % (Auto) 8.0 % (0.0-7.3) H 04/05/18 07:16 Eos % (Auto) 6.5 % (0.0-4.3) H 04/05/18 07:16 Baso % (Auto) 1.0 % (0.0-1.8) 04/05/18 07:16 Lymph # 2.5 K/mm3 (1.2-5.4) 04/05/18 07:16 [place] # 0.6 K/mm3 (0.0-0.8) 04/05/18 07:16 Eos # 0.5 K/mm3 (0.0-0.4) H 04/05/18 07:16 Baso # 0.1 K/mm3 (0.0-0.1) 04/05/18 07:16 Seg Neutrophils % 50.5 % (40.0-70.0) 04/05/18 07:16 Seg Neutrophils # 3.7 K/mm3 (1.8-7.7) 04/05/18 07:16 PT 13.7 Sec. (12.2-14.9) 03/28/18 06:44 INR 1.01 (0.87-1.13) 03/28/18 06:44 APTT 31.2 Sec. (24.2-36.6) 03/28/18 06:44 Sodium 139 mmol/L (137-145) 04/05/18 07:16 Potassium 4.8 mmol/L (3.6-5.0) 04/05/18 07:16 Chloride 92.3 mmol/L (98-107) L 04/05/18 07:16 Carbon Dioxide 26 mmol/L (22-30) 04/05/18 07:16 Anion Gap 26 mmol/L 04/05/18 07:16 BUN 45 mg/dL (9-20) H 04/05/18 07:16 Creatinine 10.3 mg/dL (0.8-1.5) H 04/05/18 07:16 Estimated GFR 6 ml/min 04/05/18 07:16 BUN/Creatinine Ratio 4 % 04/05/18 07:16 Glucose 78 mg/dL (75-100) 04/05/18 07:16 POC Glucose 72 (70-105) 03/28/18 12:36 Calcium 10.1 mg/dL (8.4-10.2) 04/05/18 07:16 Total Bilirubin 0.40 mg/dL (0.1-1.2) 04/05/18 07:16 AST 11 units/L (5-40) 04/05/18 07:16 ALT 12 units/L (7-56) 04/05/18 07:16 Alkaline Phosphatase 71 units/L (35-129) 04/05/18 07:16 Total Protein 7.4 g/dL (6.3-8.2) 04/05/18 07:16 Albumin 4.1 g/dL (3.9-5) 04/05/18 07:16 Albumin/Globulin Ratio 1.2 % 04/05/18 07:16 Hepatitis A IgM Ab Non-reactive (NonReactive) 03/28/18 15:59 Hep Bs Antigen Non-reactive (Negative) 03/28/18 15:59 Hep B Core IgM Ab Non-reactive (NonReactive) 03/28/18 15:59 Hepatitis C Antibody Non-reactive (NonReactive) 03/28/18 15:59 Nutrition/Malnutrition Assess - Dietary Evaluation Nutrition/Malnutrition Findings: Nutrition Notes Start: 04/05/18 08:56 Freq: Status: Active Protocol: Document 04/05/18 08:56 ER (Rec: 04/05/18 08:57 ER [id number]) Co-Sign 04/05/18 08:56 LP Nutrition Notes Need for Assessment generated from: LOS Initial or Follow up Brief Note Current Diet Renal Diet Subjective/Other Information Pt. screened for LOS. Pt. eating 100%. Nutrition Intervention Revisit per MD consult or patient Sign Off request:
[2018-04-06] MEDS: FOLVITE PO SCH (14:34)
[2018-04-06] MEDS: NORVASC PO SCH (14:35)
[2018-04-06] MEDS: VITAMIN D2 PO SCH (14:39)
[2018-04-06] MEDS: SODIUM CHLORIDE FLUSH SYRINGE 10 ML IV SCH ×2 (14:39→22:19)
[2018-04-07] MEDS: RENVELA PO SCH ×3 (08:56→17:45)
[2018-04-07] MEDS: FOLVITE PO SCH (09:55)
[2018-04-07] MEDS: NORVASC PO SCH (09:55)
[2018-04-07] MEDS: SODIUM CHLORIDE FLUSH SYRINGE 10 ML IV SCH ×2 (09:55→21:04)
--- NOTE | 2018-04-07 10:37 | Progress Note ---
Assessment and Plan - Patient Problems (1) ESRD (end stage renal disease) on dialysis Current Visit: Yes Status: Chronic Plan to address problem: Continue hemodialysis on a Wednesday, Wednesday and Wednesday schedule. Awaiting arrangements for outpatient dialysis to be set up. Patient was started on dialysis while he was incarcerated in [facility] and so he's never been dialyzed in an outpatient dialysis clinic. Hopefully arrangements can be fin alized today for him to start dialysis at [facility] (2) Hyperkalemia Current Visit: Yes Status: Acute Plan to address problem: Continue low potassium diet. Hemodialysis tomorrow morning (3) Hypertensive chronic kidney disease with stage 5 chronic kidney disease or end stage renal disease Current Visit: Yes Status: Chronic Plan to address problem: Follow blood pressure on current medications (4) Secondary hyperparathyroidism (of renal origin) Current Visit: Yes Status: Acute Plan to address problem: Continue vitamin D analog on dialysis. Follow up serum intact PTH as an outpatient Subjective Date of service: 04/07/18 Principal diagnosis: end-stage renal disease on hemodialysis, hyperkalemia Interval history: Patient seen lying in bed. He has no complaints. No chest pain, shortness of breath or swelling. No nausea or vomiting. Objective - Exam Narrative Exam: Middle aged male lying in bed in no acute distress HEENT: NCAT, pink oral mucous membrane Neck: Supple, no venous distention CVS: S1S2 RRR with no murmur, rub or gallop Chest: Clear to auscultation Abdomen: Protuberant, soft, nontender, no organomegaly, bowel sounds are present Extremities: No edema Neuro: Awake, alert no focal deficits - Vital Signs Vital signs: Vital Signs - 12hr 04/07/18 04/07/18 04/07/18 00:56 04:58 09:55 Temperature 98.8 F 98.2 F Pulse Rate 89 Respiratory 18 18 Rate Blood Pressure 125/82 108/70 122/84 O2 Sat by Pulse 97 Oximetry - Lab 04/05/18 07:16 04/05/18 07:16 Most recent lab results Calcium 10.1 mg/dL (8.4-10.2) 04/05/18 07:16 Medications & Allergies - Medications Allergies/Adverse Reactions: Allergies Penicillins Allergy (Verified 03/28/18 06:35) Itching Home Medications: Home Medications Medication Instructions Recorded Confirmed Last Taken Type Cholecalciferol (Vitamin D3) 50,000 unit PO QWEEK 03/28/18 03/28/18 03/27/18 History [Vitamin D3] Folic Acid [Folvite] 1 mg PO QDAY 03/28/18 03/28/18 03/27/18 History Sevelamer Carbonate [Renvela] 800 mg PO TIDWM 03/28/18 03/28/18 03/27/18 History amLODIPine [Norvasc] 10 mg PO DAILY 03/28/18 03/28/18 03/27/18 History Active Medications: Generic Name Dose Route Start Last Admin Trade Name Freq PRN Reason Stop Dose Admin Acetaminophen 650 mg 03/28/18 10:03 Tylenol PO Q4H PRN Pain MILD(1-3)/Fever >100.5/MALLORY Albuterol 2.5 mg 03/28/18 10:03 Proventil IH Q3HRT PRN Shortness Of Breath Amlodipine Besylate 10 mg 03/29/18 10:00 04/07/18 09:55 Norvasc PO 10 mg DAILY CHERELLE Administration Ergocalciferol 50,000 unit 03/30/18 10:00 04/06/18 14:39 Vitamin D2 PO 50,000 unit We CHERELLE Administration Folic Acid 1 mg 03/29/18 10:00 04/07/18 09:55 Folvite PO 1 mg QDAY CHERELLE Administration Sodium Chloride 100 mls @ 999 mls/hr 04/04/18 10:28 Nacl 0.9% IV VERNA PRN Hypotension Ondansetron HCl 4 mg 03/28/18 10:03 Zofran IV Q8H PRN Nausea And Vomiting Sevelamer Carbonate 800 mg 03/29/18 12:00 04/07/18 08:56 Renvela PO 800 mg TIDWM CHERELLE Administration Sodium Chloride 10 ml 03/28/18 22:00 04/07/18 09:55 Sodium Chloride Flush Syringe 10 Ml IV 10 ml BID CHERELLE Administration Sodium Chloride 10 ml 03/28/18 10:03 Sodium Chloride Flush Syringe 10 Ml IV PRN PRN LINE FLUSH
--- NOTE | 2018-04-07 15:13 | Progress Note ---
Assessment and Plan Assessment and plan: ESRD on HD -On hemodialysis on MWF -[facility] following -awaiting outpt HD arrangement. Hyperkalemia -Resolved HTN -controlled on meds Noncompliant with HD -Patient counseled Disposition: awaiting outpt HD arrangement before d/c. History Interval history: Patient has no new complaints. Hospitalist Physical - Constitutional Vitals: Temp Pulse Resp BP Pulse Ox 98.3 F 78 16 124/88 99 04/07/18 12:37 04/07/18 12:37 04/07/18 12:37 04/07/18 12:37 04/07/18 12:37 General appearance: Present: no acute distress, well-nourished - EENT Eyes: Present: PERRL, EOM intact ENT: hearing intact, clear oral mucosa - Neck Neck: Present: supple - Respiratory Respiratory effort: normal Respiratory: bilateral: CTA - Cardiovascular Rhythm: regular Heart Sounds: Present: S1 & S2 - Extremities Extremities: No edema - Abdominal General gastrointestinal: soft, non-tender, non-distended, normal bowel sounds - Neurologic Neurologic: CNII-XII intact Results - Labs CBC & Chem 7: 04/05/18 07:16 04/05/18 07:16 Labs: Laboratory Last Values WBC 7.3 K/mm3 (4.5-11.0) 04/05/18 07:16 RBC 4.17 M/mm3 (3.65-5.03) 04/05/18 07:16 Hgb 12.6 gm/dl (11.8-15.2) 04/05/18 07:16 Hct 37.5 % (35.5-45.6) 04/05/18 07:16 MCV 90 fl (84-94) 04/05/18 07:16 MCH 30 pg (28-32) 04/05/18 07:16 MCHC 34 % (32-34) 04/05/18 07:16 RDW 13.3 % (13.2-15.2) 04/05/18 07:16 Plt Count 206 K/mm3 (140-440) 04/05/18 07:16 Lymph % (Auto) 34.0 % (13.4-35.0) 04/05/18 07:16 [place] % (Auto) 8.0 % (0.0-7.3) H 04/05/18 07:16 Eos % (Auto) 6.5 % (0.0-4.3) H 04/05/18 07:16 Baso % (Auto) 1.0 % (0.0-1.8) 04/05/18 07:16 Lymph # 2.5 K/mm3 (1.2-5.4) 04/05/18 07:16 [place] # 0.6 K/mm3 (0.0-0.8) 04/05/18 07:16 Eos # 0.5 K/mm3 (0.0-0.4) H 04/05/18 07:16 Baso # 0.1 K/mm3 (0.0-0.1) 04/05/18 07:16 Seg Neutrophils % 50.5 % (40.0-70.0) 04/05/18 07:16 Seg Neutrophils # 3.7 K/mm3 (1.8-7.7) 04/05/18 07:16 PT 13.7 Sec. (12.2-14.9) 03/28/18 06:44 INR 1.01 (0.87-1.13) 03/28/18 06:44 APTT 31.2 Sec. (24.2-36.6) 03/28/18 06:44 Sodium 139 mmol/L (137-145) 04/05/18 07:16 Potassium 4.8 mmol/L (3.6-5.0) 04/05/18 07:16 Chloride 92.3 mmol/L (98-107) L 04/05/18 07:16 Carbon Dioxide 26 mmol/L (22-30) 04/05/18 07:16 Anion Gap 26 mmol/L 04/05/18 07:16 BUN 45 mg/dL (9-20) H 04/05/18 07:16 Creatinine 10.3 mg/dL (0.8-1.5) H 04/05/18 07:16 Estimated GFR 6 ml/min 04/05/18 07:16 BUN/Creatinine Ratio 4 % 04/05/18 07:16 Glucose 78 mg/dL (75-100) 04/05/18 07:16 POC Glucose 72 (70-105) 03/28/18 12:36 Calcium 10.1 mg/dL (8.4-10.2) 04/05/18 07:16 Total Bilirubin 0.40 mg/dL (0.1-1.2) 04/05/18 07:16 AST 11 units/L (5-40) 04/05/18 07:16 ALT 12 units/L (7-56) 04/05/18 07:16 Alkaline Phosphatase 71 units/L (35-129) 04/05/18 07:16 Total Protein 7.4 g/dL (6.3-8.2) 04/05/18 07:16 Albumin 4.1 g/dL (3.9-5) 04/05/18 07:16 Albumin/Globulin Ratio 1.2 % 04/05/18 07:16 Hepatitis A IgM Ab Non-reactive (NonReactive) 03/28/18 15:59 Hep Bs Antigen Non-reactive (Negative) 03/28/18 15:59 Hep B Core IgM Ab Non-reactive (NonReactive) 03/28/18 15:59 Hepatitis C Antibody Non-reactive (NonReactive) 03/28/18 15:59 Nutrition/Malnutrition Assess - Dietary Evaluation Nutrition/Malnutrition Findings: Nutrition Notes Start: 04/05/18 08:56 Freq: Status: Active Protocol: Document 04/05/18 08:56 ER (Rec: 04/05/18 08:57 ER [id number]) Co-Sign 04/05/18 08:56 LP Nutrition Notes Need for Assessment generated from: LOS Initial or Follow up Brief Note Current Diet Renal Diet Subjective/Other Information Pt. screened for LOS. Pt. eating 100%. Nutrition Intervention Revisit per MD consult or patient Sign Off request:
[2018-04-08] MEDS ORDERED: NORVASC PO ONE (01:20)
[2018-04-08] MEDS: RENVELA PO SCH ×2 (13:39→17:00)
[2018-04-08] MEDS ORDERED: NACL 0.9 (PRIMING MACHINE ONLY DIALYSIS) MC ONE (15:30)
[2018-04-08 16:55] VITALS: BP 142/90
[2018-04-08] MEDS: NORVASC PO SCH (17:00)
[2018-04-08] MEDS: FOLVITE PO SCH (17:00)
[2018-04-08] MEDS: SODIUM CHLORIDE FLUSH SYRINGE 10 ML IV SCH (17:09)
--- NOTE | 2018-04-09 16:22 | Discharge Summary ---
Providers - Providers Date of Admission: 03/28/18 09:45 Date of discharge: 04/08/18 Attending physician: JESSICA MURPHY 03/28/18 Consult to Case Management [CONS] Routine Services Needed at Discharge: Board Hammer Operator Notified:: copy given to cm Additional Physician Instructions: ESRD. will need outpatient dialysis 03/28/18 09:51 Consult to Physician [CONS] Routine Comment: Consulting Provider: CRIS ROSENTHAL Physician Instructions: Reason For Exam: HD-esrd Primary care physician: TIFFANY GUERIN Hospitalization Reason for admission: Severe hyperkalemia, ESRD on HD, uncontrolled hypertension Condition: Stable Pertinent studies: CXR: Negative Procedures: None Hospital course: Final discharge diagnoses: Severe hyperkalemia ESRD on HD Uncontrolled hypertension Noncompliant with HD Hospital course On admission, patient underwent emergent hemodialysis which improved his hyperkalemia. He was later continued on his home antihypertensive for blood pressure control. Thereafter, he remained stable however, his hospital stay was prolonged because his outpatient dialysis had to be arranged prior to discharge. Disposition: DC- TO HOME OR SELFCARE Time spent for discharge: 30 minutes Core Measure Documentation - Palliative Care Palliative Care/ Comfort Measures: Not Applicable - Core Measures Any of the following diagnoses?: none Exam - Constitutional Vitals: Temp Pulse Resp BP Pulse Ox 98.4 F 85 14 142/90 99 04/08/18 16:30 04/08/18 16:30 04/08/18 16:30 04/08/18 17:00 04/08/18 16:30 General appearance: Present: no acute distress, well-nourished - EENT Eyes: Present: PERRL, EOM intact ENT: hearing intact, clear oral mucosa - Neck Neck: Present: supple, normal ROM - Respiratory Respiratory effort: normal Respiratory: bilateral: CTA - Cardiovascular Rhythm: regular Heart Sounds: Present: S1 & S2. Absent: rub, click - Extremities Extremities: No edema - Abdominal General gastrointestinal: Present: soft, non-tender, non-distended, normal bowel sounds - Integumentary Integumentary: Present: clear, warm, dry - Musculoskeletal Musculoskeletal: gait normal, strength equal bilaterally - Psychiatric Psychiatric: appropriate mood/affect, intact judgment & insight - Neurologic Neurologic: CNII-XII intact, moves all extremities Plan Follow up with: TIFFANY GUERIN MD [Primary Care Provider] - 7 Days
== END 2018-04-08 17:15 | disposition home or self-care (01) | DRG 640 ==
LOC: ED 06:23 → IMCU 09:45 → 3A 03-29 14:38
PROVIDERS: ADMIT Internal Medicine; ATTEND Internal Medicine
PROC: 5A1D70Z Performance of Urinary Filtration, Intermittent, Less than 6 Hours Per Day (ICD-10-PCS; principal; 2018-03-28)
PROC: 5A1D70Z Performance of Urinary Filtration, Intermittent, Less than 6 Hours Per Day (ICD-10-PCS; 2018-03-29)
PROC: 5A1D70Z Performance of Urinary Filtration, Intermittent, Less than 6 Hours Per Day (ICD-10-PCS; 2018-03-30)
PROC: 5A1D70Z Performance of Urinary Filtration, Intermittent, Less than 6 Hours Per Day (ICD-10-PCS; 2018-04-01)
PROC: 5A1D70Z Performance of Urinary Filtration, Intermittent, Less than 6 Hours Per Day (ICD-10-PCS; 2018-04-04)
PROC: 5A1D70Z Performance of Urinary Filtration, Intermittent, Less than 6 Hours Per Day (ICD-10-PCS; 2018-04-06)
PROC: 5A1D70Z Performance of Urinary Filtration, Intermittent, Less than 6 Hours Per Day (ICD-10-PCS; 2018-04-08)
DX: E87.5 Hyperkalemia (principal); N18.6 End stage renal disease; N25.81 Secondary hyperparathyroidism of renal origin; I12.0 Hypertensive chronic kidney disease with stage 5 chronic kidney disease or end stage renal disease; Z99.2 Dependence on renal dialysis; Z91.15 Patient's noncompliance with renal dialysis; Z88.0 Allergy status to penicillin; Z82.49 Family history of ischemic heart disease and other diseases of the circulatory system; Z79.899 Other long term (current) drug therapy
CPT/HCPCS: 36415; 71045; 80048; 80053; 80074; 82962; 84132; 85025; 85027; 85610; 85730; 93005; 93010; G0378; J1815; J7030

== ENCOUNTER 2018-07-15 11:16 | Outpatient (CLI) | payer MEDICAID ==
--- NOTE | 2018-07-15 15:08 | Vascular Lab Report ---
PROCEDURE: VL VENOUS DUPLEX LE BILAT TECHNIQUE: Grayscale and color and spectral doppler ultrasound imaging of the bilateral lower extrem ity venous system was performed. HISTORY: PAIN AND SWELLING BILATERAL LOWER EXTREMITY COMPARISONS: None. FINDINGS: There is normal compression and color flow within the bilateral lower extremity venous system. Normal augmentation was seen. IMPRESSION: No evidence of deep venous thrombosis. This document is electronically signed by Linsey Alston., Jul 15 2018 03:06:20 PM ET
== END 2018-07-15 11:17 | disposition home or self-care (01) ==
LOC: VAS 11:16
PROVIDERS: ATTEND Family Medicine
DX: R22.43 Localized swelling, mass and lump, lower limb, bilateral (principal); I12.0 Hypertensive chronic kidney disease with stage 5 chronic kidney disease or end stage renal disease; N18.6 End stage renal disease; E78.5 Hyperlipidemia, unspecified
CPT/HCPCS: 93970

== ENCOUNTER 2018-08-18 05:39 | Emergency (ER) | payer MEDICAID ==
[2018-08-18] MEDS ORDERED: LIDOCAINE VISCOUS 2% PO ONE (05:55)
[2018-08-18] MEDS ORDERED: DECADRON IV ONE (05:55)
[2018-08-18] MEDS ORDERED: ZOFRAN IV ONE (05:56)
[2018-08-18] MEDS ORDERED: MORPHINE IV ONE (05:57)
--- NOTE | 2018-08-18 06:03 | Emergency Department Report ---
<RACIEL LOREDO - Last Filed: 08/18/18 07:20> ED General Adult HPI - General Chief complaint: Sore Throat Stated complaint: TONSILLS Time Seen by Provider: 08/18/18 05:45 Source: patient Mode of arrival: Ambulatory Limitations: No Limitations - History of Present Illness Initial comments: Patient is a 43-year-old male with a history of HTN and ESRD on hemodialysis who presents to the ED with complaint of acute onset persistent area sore throat with dysphagia and swelling for the last 2 days. Patient states that he has not been able swallow anything because of swelling and pain in his throat. The patient denies fever, chills, traumatic injury, nausea, vomiting, headache, chest pain, shortness of breath, change in vision, cough or abdominal pain. MD Complaint: Sore throat, swollen throat and dysphagia -: Sudden, days(s) (2) Location: mouth Radiation: neck Severity scale (0 -10): 8 Quality: aching, sharp, constant Consistency: constant Improves with: none Worsens with: none Associated Symptoms: loss of appetite. denies: confusion, chest pain, cough, diaphoresis, fever/chills, headaches, malaise, nausea/vomiting, rash, seizure, shortness of breath, syncope, weakness Treatments Prior to Arrival: none - Related Data Home Medications Medication Instructions Recorded Confirmed Last Taken Cholecalciferol (Vitamin D3) 50,000 unit PO QWEEK 03/28/18 03/28/18 03/27/18 [Vitamin D3 50,000UNIT CAP] Folic Acid [Folvite] 1 mg PO QDAY 03/28/18 03/28/18 03/27/18 Sevelamer Carbonate [Renvela] 800 mg PO TIDWM 03/28/18 03/28/18 03/27/18 amLODIPine [Norvasc] 10 mg PO DAILY 03/28/18 03/28/18 03/27/18 Allergies Allergy/AdvReac Type Severity Reaction Status Date / Time Penicillins Allergy Itching Verified 03/28/18 06:35 ED Review of Systems Constitutional: denies: chills, fever Eyes: denies: eye pain, eye discharge, vision change ENT: throat pain, other (Swollen throat and dysphagia). denies: ear pain Respiratory: denies: cough, shortness of breath, wheezing Cardiovascular: denies: chest pain, palpitations Endocrine: no symptoms reported Gastrointestinal: denies: abdominal pain, nausea, diarrhea Genitourinary: denies: urgency, dysuria Musculoskeletal: denies: back pain, joint swelling, arthralgia Skin: denies: rash, lesions Neurological: denies: headache, weakness, paresthesias Psychiatric: denies: anxiety, depression Hematological/Lymphatic: denies: easy bleeding, easy bruising ED Past Medical Hx - Past Medical History Previous Medical History?: Yes Hx Hypertension: Yes Hx Renal Disease: Yes (Dialysis Tue-Thr-Wed) - Surgical History Past Surgical History?: Yes Additional Surgical History: AV Fistula Left arm - Social History Smoking Status: Never Smoker Substance Use Type: None - Medications Home Medications: Home Medications Medication Instructions Recorded Confirmed Last Taken Type Cholecalciferol (Vitamin D3) 50,000 unit PO QWEEK 03/28/18 03/28/18 03/27/18 History [Vitamin D3 50,000UNIT CAP] Folic Acid [Folvite] 1 mg PO QDAY 03/28/18 03/28/18 03/27/18 History Sevelamer Carbonate [Renvela] 800 mg PO TIDWM 03/28/18 03/28/18 03/27/18 History amLODIPine [Norvasc] 10 mg PO DAILY 03/28/18 03/28/18 03/27/18 History ED Physical Exam - General Limitations: No Limitations General appearance: alert, in no apparent distress - Head Head exam: Present: atraumatic, normocephalic, normal inspection - Eye Eye exam: Present: normal appearance, PERRL, EOMI. Absent: scleral icterus, conjunctival injection, nystagmus Pupils: Present: normal accommodation - ENT ENT exam: Present: mucous membranes moist, TM's normal bilaterally, normal external ear exam, other (Swollen, severely tender oropharyngeal area with trace thick white exudates, and s/p tonsillectomy) - Neck Neck exam: Present: normal inspection, full ROM, lymphadenopathy - Respiratory Respiratory exam: Present: normal lung sounds bilaterally. Absent: respiratory distress, wheezes, rhonchi, stridor, chest wall tenderness, accessory muscle use, decreased breath sounds - Cardiovascular Cardiovascular Exam: Present: normal rhythm, tachycardia, normal heart sounds. Absent: systolic murmur, diastolic murmur, rubs, gallop - GI/Abdominal GI/Abdominal exam: Present: soft, normal bowel sounds. Absent: tenderness, guarding, rebound, hyperactive bowel sounds, hypoactive bowel sounds, organomegaly, mass, bruit, pulsatile mass - Rectal Rectal exam: Present: deferred - Extremities Exam Extremities exam: Present: normal inspection, full ROM, normal capillary refill - Back Exam Back exam: Present: normal inspection, full ROM. Absent: tenderness, CVA tenderness (L), muscle spasm, paraspinal tenderness, vertebral tenderness - Neurological Exam Neurological exam: Present: alert, oriented X3, CN II-XII intact, normal gait, reflexes normal - Psychiatric Psychiatric exam: Present: normal affect, normal mood, anxious - Skin Skin exam: Present: warm, dry, intact, normal color. Absent: rash ED Course - Reevaluation(s) Reevaluation #1: 08/18/18 06:04 Patient is alert and oriented 3, tachycardic and in no distress but appears to be in great pain. Labs are drawn and patient treated for pain in the ED, also given Decadron and CT scan soft neck without contrast ordered because the patient chronic renal disease, in order to rule out any peritonsillar abscess. ED Medical Decision Making - Lab Data Result diagrams: 08/18/18 06:00 08/18/18 06:00 - Medical Decision Making Patient is alert and oriented 3, tachycardic and in no distress but appears to be in great pain. Labs are drawn and patient treated for pain in the ED, also g iven Decadron and CT scan soft neck without contrast ordered because the patient chronic renal disease, in order to rule out any peritonsillar abscess. Patient care transferred to Ms. Allison Bolivar PA-C at shift change at 0700 hours, pending CT scan w/o contrast of soft tissue Report ED Disposition Clinical Impression: Acute pharyngitis, Sepsis due to infection of mouth, Pharyngeal mass, ESRD (end stage renal disease) on dialysis Disposition: DC/TX-70 ANOTHER TYPE HLTHCARE Condition: Stable Referrals: JUAN WEBBER MD [Primary Care Provider] - 3-5 Days <ALLISON BOLIVAR - Last Filed: 08/18/18 10:10> ED Review of Systems ROS: Stated complaint: TONSILLS Other details as noted in HPI ED Course Vital Signs 08/18/18 08/18/18 08/18/18 05:41 06:57 08:13 Temperature 99.7 F H Pulse Rate 111 H Respiratory 17 18 Rate Blood Pressure 168/104 O2 Sat by Pulse 98 93 Oximetry 08/18/18 08/18/18 08:25 09:00 Temperature Pulse Rate Respiratory Rate Blood Pressure 153/94 O2 Sat by Pulse 95 91 Oximetry - Reevaluation(s) Reevaluation #2: Patient is comfortable at this time, no airway compromise at this time. Patient is transferred to room 22 to be monitored 08/18/18 09:00 - Consultations Consultation #1: 08/18/18 08:58 [facility] was consulted, patient was discussed with ENT doctor Matti. patient will be transferred to [facility] Patient is awaiting transfer to [facility]. 08/18/18 09:01 ED Medical Decision Making - Lab Data Result diagrams: 08/18/18 06:00 08/18/18 06:00 - Radiology Data Radiology results: report reviewed, image reviewed FINDINGS: This is an abnormal CT scan. MUCOSAL SPACE: Large mass is seen in the left mucosal space extending from the nasopharynx towards the true vocal cord level. Airway is displaced towards the right side. Calcification in the left peritonsillar crypts are not displaced. Without intravenous contrast, it is difficult to evaluate this lesion. There are signs of inflammatory changes. LYMPH NODES: Enlarged level 2 lymph nodes are seen on the left side. Smaller reactive lymph nodes are seen more on the left side. SALIVARY GLANDS: Parotid, submandibular, and visualized sublingual glands are within normal limits. THYROID GLAND: Unremarkable. PARANASAL SINUSES: Marked mucosal thickening is seen in the left maxillary sinus. Retention cyst is seen in the right maxillary sinus. SPINE: No significant abnormality of the cervical spine appreciated. VASCULAR STRUCTURES: Unable to comment on the vascular structures. IMPRESSION: Large mucosal space lesion on the left side extending from the nasopharynx towards the left true vocal cord; this could be inflammatory or neoplasm I have discussed these findings with the ER physician Dr. Vivar at 6:38 AM. Signer Name: Leif Gibson MD Signed: 08/18/2018 7:54 AM Workstation Name: [id number] Transcribed By: BS Dictated By: Leif Finn MD Electronically Authenticated By: Leif Finn MD Signed Date/Time: 08/18/18 0754 - Medical Decision Making he is a 43-year-old male presents with peritonsillar mass, Lactic acid and blood cultures drawn, pending [place] patient will be transferred to [facility] ED and the consultation by ENT at [facility] CT scan report shows abscess, see reported above. Patient was comfortable prior to the EMS transfer to [facility]. Critical care attestation.: If time is entered above; I have spent that time in minutes in the direct care of this critically ill patient, excluding procedure time. ED Disposition Is pt being admited?: No Does the pt Need Aspirin: No
[2018-08-18] MEDS ORDERED: MORPHINE ONE (06:14)
[2018-08-18 06:24] LABS: Basophils # (Auto) 0.2 K/mm3 (0.0-0.1); Basophils % (Auto) 1.3 % (0.0-1.8); Eosinophils % (Auto) 0.2 % (0.0-4.3); Hematocrit 31.6 % (35.5-45.6); Hemoglobin 10.9 gm/dl (11.8-15.2); Lymphocytes # (Auto) 1.4 K/mm3 (1.2-5.4); Lymphocytes % (Auto) 8.8 % (13.4-35.0); Mean Corpuscular HGB Conc 34 % (32-34); Mean Corpuscular Volume 92 fl (84-94); Monocytes # (Auto) 1.3 K/mm3 (0.0-0.8); Monocytes % (Auto) 8.1 % (0.0-7.3); Platelet Count 170 K/mm3 (140-440); Red Blood Count 3.44 M/mm3 (3.65-5.03); Red Cell Distribution Width 14.9 % (13.2-15.2)
[2018-08-18] MEDS ORDERED: CLEOCIN 900 MG/50 mL 900 MG/50 ML BAG IV ONE (06:34)
[2018-08-18 06:48] LABS: Albumin 4.1 g/dL (3.9-5); Calcium 9.9 mg/dL (8.4-10.2)
--- NOTE | 2018-08-18 07:59 | Cat Scan Report ---
CT scan of the neck nonenhanced: INDICATION: swollen throat: dysphagia. End-stage renal disease TECHNIQUE: Contiguous thin cut axial images obtained through the neck without intravenous iodinated contrast. Sa gittal and coronal reconstructions performed by the technologist. All CT scans at this location are p erformed using CT dose reduction for ALARA by means of automated exposure control. COMPARISON: None available. FINDINGS: This is an abnormal CT scan. MUCOSAL SPACE: Large mass is seen in the left mucosal space extending from the nasopharynx towards th e true vocal cord level. Airway is displaced towards the right side. Calcification in the left perito nsillar crypts are not displaced. Without intravenous contrast, it is difficult to evaluate this lesi on. There are signs of inflammatory changes. LYMPH NODES: Enlarged level 2 lymph nodes are seen on the left side. Smaller reactive lymph nodes are seen more on the left side. SALIVARY GLANDS: Parotid, submandibular, and visualized sublingual glands are within normal limits. THYROID GLAND: Unremarkable. PARANASAL SINUSES: Marked mucosal thickening is seen in the left maxillary sinus. Retention cyst is s een in the right maxillary sinus. SPINE: No significant abnormality of the cervical spine appreciated. VASCULAR STRUCTURES: Unable to comment on the vascular structures. IMPRESSION: Large mucosal space lesion on the left side extending from the nasopharynx towards the left true voc al cord; this could be inflammatory or neoplasm I have discussed these findings with the ER physician Dr. Vivar at 6:38 AM. Signer Name: Leif Gibson MD Signed: 08/18/2018 7:54 AM Workstation Name: [id number]
[2018-08-18 09:38] VITALS: BP 153/94
== END 2018-08-18 09:54 | disposition other institution (70) ==
LOC: ED 05:39
DX: J02.9 Acute pharyngitis, unspecified (principal); A41.9 Sepsis, unspecified organism; J39.2 Other diseases of pharynx; I12.0 Hypertensive chronic kidney disease with stage 5 chronic kidney disease or end stage renal disease; N18.6 End stage renal disease; Z99.2 Dependence on renal dialysis; Z88.0 Allergy status to penicillin
CPT/HCPCS: 36415; 70490; 80053; 82140; 85025; 87040; 87116; 87430; 96365; 96375; 99285; J1100; J2270; J2405

== ENCOUNTER 2019-03-22 18:24 | Emergency (ER) | payer MEDICAID ==
[2019-03-22 19:20] LABS: Basophils # (Auto) 0.1 K/mm3 (0.0-0.1); Basophils % (Auto) 1.3 % (0.0-1.8); Eosinophils # (Auto) 0.1 K/mm3 (0.0-0.4); Eosinophils % (Auto) 0.7 % (0.0-4.3); Hematocrit 33.2 % (35.5-45.6); Hemoglobin 11.1 gm/dl (11.8-15.2); Lymphocytes # (Auto) 1.7 K/mm3 (1.2-5.4); Lymphocytes % (Auto) 15.7 % (13.4-35.0); Mean Corpuscular HGB Conc 34 % (32-34); Mean Corpuscular Volume 90 fl (84-94); Monocytes % (Auto) 9.1 % (0.0-7.3); Platelet Count 184 K/mm3 (140-440); Red Blood Count 3.69 M/mm3 (3.65-5.03); Red Cell Distribution Width 15.2 % (13.2-15.2)
[2019-03-22 19:33] LABS: Albumin 4.2 g/dL (3.9-5); Calcium 8.9 mg/dL (8.4-10.2)
--- NOTE | 2019-03-23 00:52 | Emergency Department Report ---
ED General Adult HPI - General Chief complaint: Abdominal Pain Stated complaint: SENT BY /TREVA PAIN Time Seen by Provider: 03/23/19 00:11 Source: patient Mode of arrival: Ambulatory Limitations: No Limitations - History of Present Illness Initial comments: The patient presents to the emergency department with a chief complaint of right lower quadrant abdominal pain that started Wednesday. Patient states he went to urgent care was given a shot for pain which improved his symptoms. Patient states he was sent to the emergency department via to urgent care. Patient has end-stage renal disease and requires dialysis on Tuesdays, , Wednesday. Patient denies any nausea vomiting. -: Sudden Location: abdomen Radiation: non-radiation Severity scale (0 -10): 3 Quality: sharp Consistency: constant Improves with: none Worsens with: none Associated Symptoms: denies other symptoms Treatments Prior to Arrival: none - Related Data Home Medications Medication Instructions Recorded Confirmed Last Taken Cholecalciferol (Vitamin D3) 50,000 unit PO QWEEK 03/28/18 03/28/18 03/27/18 [Vitamin D3 50,000UNIT CAP] Folic Acid [Folvite] 1 mg PO QDAY 03/28/18 03/28/18 03/27/18 Sevelamer Carbonate [Renvela] 800 mg PO TIDWM 03/28/18 03/28/18 03/27/18 amLODIPine 10 mg PO DAILY 03/28/18 03/28/18 03/27/18 Previous Rx's Medication Instructions Recorded Last Taken Type Sulfamethoxazole/Trimethoprim 1 each PO BID #14 tablet 03/23/19 Unknown Rx [Bactrim DS TAB] Allergies Allergy/AdvReac Type Severity Reaction Status Date / Time Penicillins Allergy Itching Verified 03/28/18 06:35 ED Review of Systems ROS: Stated complaint: SENT BY /TREVA PAIN Other details as noted in HPI Comment: All other systems reviewed and negative Constitutional: denies: chills, fever Eyes: denies: eye pain, eye discharge, vision change ENT: denies: ear pain, throat pain Respiratory: denies: cough, shortness of breath, wheezing Cardiovascular: denies: chest pain, palpitations Endocrine: no symptoms reported Gastrointestinal: abdominal pain. denies: nausea, diarrhea Genitourinary: denies: urgency, dysuria Musculoskeletal: denies: back pain, joint swelling, arthralgia Skin: denies: rash, lesions Neurological: denies: headache, weakness, paresthesias Psychiatric: denies: anxiety, depression Hematological/Lymphatic: denies: easy bleeding, easy bruising ED Past Medical Hx - Past Medical History Previous Medical History?: Yes Hx Hypertension: Yes Hx Renal Disease: Yes (Dialysis Tue-Thr-Sat) - Surgical History Past Surgical History?: Yes Additional Surgical History: AV Fistula Left arm - Social History Smoking Status: Never Smoker Substance Use Type: None - Medications Home Medications: Home Medications Medication Instructions Recorded Confirmed Last Taken Type Cholecalciferol (Vitamin D3) 50,000 unit PO QWEEK 03/28/18 03/28/18 03/27/18 History [Vitamin D3 50,000UNIT CAP] Folic Acid [Folvite] 1 mg PO QDAY 03/28/18 03/28/18 03/27/18 History Sevelamer Carbonate [Renvela] 800 mg PO TIDWM 03/28/18 03/28/18 03/27/18 History amLODIPine 10 mg PO DAILY 03/28/18 03/28/18 03/27/18 History Sulfamethoxazole/Trimethoprim 1 each PO BID #14 tablet 03/23/19 Unknown Rx [Bactrim DS TAB] ED Physical Exam - General Limitations: No Limitations General appearance: alert, in no apparent distress - Head Head exam: Present: atraumatic, normocephalic - Eye Eye exam: Present: normal appearance, PERRL, EOMI - ENT ENT exam: Present: mucous membranes moist - Neck Neck exam: Present: normal inspection - Respiratory Respiratory exam: Present: normal lung sounds bilaterally. Absent: respiratory distress - Cardiovascular Cardiovascular Exam: Present: regular rate, normal rhythm. Absent: systolic murmur, diastolic murmur, rubs, gallop - GI/Abdominal GI/Abdominal exam: Present: soft, tenderness (ttp rlq), normal bowel sounds. Absent: distended - Rectal Rectal exam: Present: deferred - Extremities Exam Extremities exam: Present: other (aneurysm of the left AV fistula ) - Back Exam Back exam: Present: normal inspection - Neurological Exam Neurological exam: Present: alert, oriented X3, CN II-XII intact. Absent: motor sensory deficit - Psychiatric Psychiatric exam: Present: normal affect, normal mood - Skin Skin exam: Present: warm, dry, intact, normal color. Absent: rash ED Course Vital Signs 03/22/19 03/22/19 03/23/19 18:58 19:01 00:24 Temperature 98.9 F 98.3 F Pulse Rate 92 H 85 Respiratory 18 16 Rate Blood Pressure 198/132 Blood Pressure 186/123 197/113 [Right] O2 Sat by Pulse 98 98 Oximetry ED Medical Decision Making - Lab Data Result diagrams: 03/22/19 19:02 03/22/19 19:02 Lab Results 03/22/19 03/22/19 Range/Units 19:02 19:02 WBC 11.0 (4.5-11.0) K/mm3 RBC 3.69 (3.65-5.03) M/mm3 Hgb 11.1 L (11.8-15.2) gm/dl Hct 33.2 L (35.5-45.6) % MCV 90 (84-94) fl MCH 30 (28-32) pg MCHC 34 (32-34) % RDW 15.2 (13.2-15.2) % Plt Count 184 (140-440) K/mm3 Lymph % (Auto) 15.7 (13.4-35.0) % Williamson % (Auto) 9.1 H (0.0-7.3) % Eos % (Auto) 0.7 (0.0-4.3) % Baso % (Auto) 1.3 (0.0-1.8) % Lymph # 1.7 (1.2-5.4) K/mm3 Williamson # 1.0 H (0.0-0.8) K/mm3 Eos # 0.1 (0.0-0.4) K/mm3 Baso # 0.1 (0.0-0.1) K/mm3 Seg Neutrophils % 73.2 H (40.0-70.0) % Seg Neutrophils # 8.1 H (1.8-7.7) K/mm3 Sodium 144 (137-145) mmol/L Potassium 4.5 (3.6-5.0) mmol/L Chloride 95.5 L (98-107) mmol/L Carbon Dioxide 26 (22-30) mmol/L Anion Gap 27 mmol/L BUN 59 H (9-20) mg/dL Creatinine 13.5 H (0.8-1.5) mg/dL Estimated GFR 4 ml/min BUN/Creatinine Ratio 4 % Glucose 102 H (75-100) mg/dL Calcium 8.9 (8.4-10.2) mg/dL Total Bilirubin 0.40 (0.1-1.2) mg/dL AST 7 (5-40) units/L ALT 8 (7-56) units/L Alkaline Phosphatase 147 H (35-129) units/L Total Protein 7.8 (6.3-8.2) g/dL Albumin 4.2 (3.9-5) g/dL Albumin/Globulin Ratio 1.2 % Lipase 48 (13-60) units/L - Radiology Data Radiology results: report reviewed - Medical Decision Making 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 ED Disposition Clinical Impression: Right lower quadrant pain, Renal cyst Disposition: TO HOME OR SELFCARE Is pt being admited?: No Does the pt Need Aspirin: No Condition: Stable Instructions: Abdominal Pain (ED) Additional Instructions: Please return if worse Please follow up with her criminal attorney or urologist as provided for further evaluation of the renal cyst's as needed Referrals: JUAN WEBBER MD [Primary Care Provider] - 3-5 Days SHALOM ESCALANTE MD [Staff Physician] - 3-5 Days Time of Disposition: 02:42
--- NOTE | 2019-03-23 02:28 | Cat Scan Report ---
CT ABDOMEN AND PELVIS WITH CONTRAST HISTORY: Pt complains of R.L.Q. abdominal pain.. COMPARISON: None. TECHNIQUE: CT images of the abdomen and pelvis were obtained following administration of intravenous contrast. All CT scans at this location are performed using CT dose reduction for ALARA by means of automated exposure control. CONTRAST: 100 ml of intravenous contrast administered. FINDINGS: Lungs/bones: Lung bases are clear. There are degenerative changes in the spine with no acute osseous abnormality. Bilateral L5 pars defects are present with grade 1 anterolisthesis of L5 on S1. Abdomen/pelvis: The liver, gallbladder, spleen, pancreas, adrenals, and proximal GI tract appear unr emarkable. There are numerable cysts within the horseshoe kidney, with one larger and heterogeneous a ttenuation structure on the right measuring 4.8 cm on image #83 of series #2 with surrounding inflamm atory change. There is also mild stranding along the proximal right ureter. Prostate is enlarged and indents the bladder base. The bladder is mostly collapsed but there is sugge stion of circumferential wall thickening. No pelvic free fluid or acute colonic abnormality identifie d. The appendix is normal. IMPRESSION: 1. Rounded masslike structure within the right pole of the horseshoe kidney could be seen with a comp ricarda cyst or an underlying mass such as renal cell carcinoma. 2. Inflammatory change tracking from the right kidney along the right ureter could be seen with recen t stone passage or infectious process. Similar findings are seen in the urinary bladder with mild wal l thickening. Correlate with urinalysis findings. 2. Additional incidental findings as above. Signer Name: Ceasar Cantu MD Signed: 03/23/2019 2:24 AM Workstation Name: [id number]
[2019-03-23 02:42] VITALS: BP 189/116
== END 2019-03-23 03:01 | disposition home or self-care (01) ==
LOC: ED 18:24
DX: N28.1 Cyst of kidney, acquired (principal); R10.31 Right lower quadrant pain; I12.0 Hypertensive chronic kidney disease with stage 5 chronic kidney disease or end stage renal disease; N18.6 End stage renal disease; Z99.2 Dependence on renal dialysis; Z79.899 Other long term (current) drug therapy; Z88.0 Allergy status to penicillin
CPT/HCPCS: 36415; 74177; 80053; 83690; 85025; 99284; Q9967

== ENCOUNTER 2020-02-11 09:02 | Emergency (ER) | payer MEDICAID ==
[2020-02-11 09:48] VITALS: BP 178/107
[2020-02-11] MEDS ORDERED: levETIRAcetam 500 MG TAB PO ONE (10:39)
--- NOTE | 2020-02-11 11:05 | Emergency Department Report ---
ED General Adult HPI - General Chief complaint: Seizure Stated complaint: SEIZURE Time Seen by Provider: 02/11/20 10:08 Source: EMS Mode of arrival: Stretcher Limitations: No Limitations - History of Present Illness Initial comments: The patient presents to the emergency department via EMS for reported seizure episode. Patient was at dialysis had nearly completed his treatment when the patient began to have a seizure per the staff at the dialysis center. EMS states that the patient appeared to be post ictal upon arrival and they gave him 2 mg Ativan. Upon evaluating the patient he states he does not have a history of seizures and states he remembers being on dialysis and blacking out. Patient states he has blacked out before doing dialysis but has been years ago. Patient denies any chest pain, shortness breath, or abdominal pain. Patient has no bite bonilla to his tongue or his lips per his evaluation and denies having soiled or wet his pants. -: Sudden Severity scale (0 -10): 0 Consistency: now resolved Improves with: none Worsens with: none Associated Symptoms: denies other symptoms Treatments Prior to Arrival: none - Related Data Home Medications Medication Instructions Recorded Confirmed Last Taken Cholecalciferol (Vitamin D3) 50,000 unit PO QWEEK 03/28/18 03/28/18 03/27/18 [Vitamin D3 50,000UNIT CAP] Folic Acid [Folvite] 1 mg PO QDAY 03/28/18 03/28/18 03/27/18 Sevelamer Carbonate [Renvela] 800 mg PO TIDWM 03/28/18 03/28/18 03/27/18 amLODIPine 10 mg PO DAILY 03/28/18 03/28/18 03/27/18 Previous Rx's Medication Instructions Recorded Last Taken Type Acetaminophen/Codeine [Tylenol 1 tab PO Q6H PRN #15 tab 03/23/19 Unknown Rx /Codeine # 3 tab] Ondansetron [Zofran Odt] 4 mg PO Q4HR PRN #20 tab.rapdis 03/23/19 Unknown Rx Sulfamethoxazole/Trimethoprim 1 each PO BID #14 tablet 03/23/19 Unknown Rx [Bactrim DS TAB] levETIRAcetam [Keppra TAB] 500 mg PO BID #60 tablet 02/11/20 Unknown Rx Allergies Allergy/AdvReac Type Severity Reaction Status Date / Time Penicillins Allergy Itching Verified 03/28/18 06:35 ED Review of Systems ROS: Stated complaint: SEIZURE Other details as noted in HPI Comment: All other systems reviewed and negative Constitutional: denies: chills, fever Eyes: denies: eye pain, eye discharge, vision change ENT: denies: ear pain, throat pain Respiratory: denies: cough, shortness of breath, wheezing Cardiovascular: denies: chest pain, palpitations Endocrine: no symptoms reported Gastrointestinal: denies: abdominal pain, nausea, diarrhea Genitourinary: denies: urgency, dysuria Musculoskeletal: denies: back pain, joint swelling, arthralgia Skin: denies: rash, lesions Neurological: denies: headache, weakness, paresthesias Psychiatric: denies: anxiety, depression Hematological/Lymphatic: denies: easy bleeding, easy bruising ED Past Medical Hx - Past Medical History Hx Hypertension: Yes Hx Renal Disease: Yes (Dialysis Tue-Thr-Wed) - Surgical History Additional Surgical History: AV Fistula Left arm - Social History Smoking Status: Unknown if ever smoked - Medications Home Medications: Home Medications Medication Instructions Recorded Confirmed Last Taken Type Cholecalciferol (Vitamin D3) 50,000 unit PO QWEEK 03/28/18 03/28/18 03/27/18 History [Vitamin D3 50,000UNIT CAP] Folic Acid [Folvite] 1 mg PO QDAY 03/28/18 03/28/18 03/27/18 History Sevelamer Carbonate [Renvela] 800 mg PO TIDWM 03/28/18 03/28/18 03/27/18 History amLODIPine 10 mg PO DAILY 03/28/18 03/28/18 03/27/18 History Acetaminophen/Codeine [Tylenol 1 tab PO Q6H PRN #15 tab 03/23/19 Unknown Rx /Codeine # 3 tab] Ondansetron [Zofran Odt] 4 mg PO Q4HR PRN #20 tab.rapdis 03/23/19 Unknown Rx Sulfamethoxazole/Trimethoprim 1 each PO BID #14 tablet 03/23/19 Unknown Rx [Bactrim DS TAB] levETIRAcetam [Keppra TAB] 500 mg PO BID #60 tablet 02/11/20 Unknown Rx ED Physical Exam - General Limitations: No Limitations General appearance: alert, in no apparent distress - Head Head exam: Present: atraumatic, normocephalic - Eye Eye exam: Present: normal appearance - ENT ENT exam: Present: mucous membranes moist - Neck Neck exam: Present: normal inspection - Respiratory Respiratory exam: Present: normal lung sounds bilaterally. Absent: respiratory distress - Cardiovascular Cardiovascular Exam: Present: regular rate, normal rhythm. Absent: systolic murmur, diastolic murmur, rubs, gallop - GI/Abdominal GI/Abdominal exam: Present: soft, normal bowel sounds. Absent: distended, tenderness - Rectal Rectal exam: Present: deferred - Extremities Exam Extremities exam: Present: normal inspection - Back Exam Back exam: Present: normal inspection - Neurological Exam Neurological exam: Present: alert, oriented X3, CN II-XII intact. Absent: motor sensory deficit - Psychiatric Psychiatric exam: Present: normal affect, normal mood - Skin Skin exam: Present: warm, dry, intact, normal color. Absent: rash ED Course Vital Signs 02/11/20 02/11/20 09:13 09:47 Temperature 98.1 F Pulse Rate 110 H 103 H Respiratory 18 17 Rate Blood Pressure 170/110 178/107 [Right] O2 Sat by Pulse 98 96 Oximetry ED Medical Decision Making - Lab Data Result diagrams: 02/11/20 10:50 02/11/20 10:50 Lab Results 02/11/20 02/11/20 Range/Units 10:50 10:50 WBC 9.8 (4.5-11.0) K/mm3 RBC 3.98 (3.65-5.03) M/mm3 Hgb 11.8 (11.8-15.2) gm/dl Hct 35.3 L (35.5-45.6) % MCV 89 (84-94) fl MCH 30 (28-32) pg MCHC 34 (32-34) % RDW 18.1 H (13.2-15.2) % Plt Count 176 (140-440) K/mm3 Lymph % (Auto) 7.1 L (13.4-35.0) % [place] % (Auto) 7.2 (0.0-7.3) % Eos % (Auto) 1.1 (0.0-4.3) % Baso % (Auto) 0.4 (0.0-1.8) % Lymph # (Auto) 0.7 L (1.2-5.4) K/mm3 [place] # (Auto) 0.7 (0.0-0.8) K/mm3 Eos # (Auto) 0.1 (0.0-0.4) K/mm3 Baso # (Auto) 0.0 (0.0-0.1) K/mm3 Seg Neutrophils % 84.2 H (40.0-70.0) % Seg Neutrophils # 8.2 H (1.8-7.7) K/mm3 Sodium 141 (137-145) mmol/L Potassium 4.9 (3.6-5.0) mmol/L Chloride 96.4 L (98-107) mmol/L Carbon Dioxide 33 H (22-30) mmol/L Anion Gap 17 mmol/L BUN 40 H (9-20) mg/dL Creatinine 9.7 H (0.8-1.3) mg/dL Estimated GFR 6 ml/min BUN/Creatinine Ratio 4 % Glucose 100 (75-100) mg/dL Calcium 9.7 (8.4-10.2) mg/dL Total Bilirubin 0.40 (0.1-1.2) mg/dL AST 12 (5-40) units/L ALT 10 (7-56) units/L Alkaline Phosphatase 84 (35-129) units/L Total Protein 7.6 (6.3-8.2) g/dL Albumin 4.1 (3.9-5) g/dL Albumin/Globulin Ratio 1.2 % - Radiology Data Radiology results: report reviewed - Medical Decision Making Discussed results with patient Patient's operator control room was in the ED and saw the patient as well Patient was given Keppra in the ED Critical care attestation.: If time is entered above; I have spent that time in minutes in the direct care of this critically ill patient, excluding procedure time. ED Disposition Clinical Impression: Seizure-like activity, Observed seizure-like activity Disposition: DC-01 TO HOME OR SELFCARE Is pt being admited?: No Does the pt Need Aspirin: No Condition: Stable Instructions: Seizure, Adult Additional Instructions: return if worse Prescriptions: levETIRAcetam [Keppra TAB] 500 mg PO BID #60 tablet Referrals: PRIMARY CAREMD [Primary Care Provider] - 3-5 Days TIFFANY GUERIN MD [Staff Physician] - 3-5 Days VINCENT SAPP MD [Staff Physician] - 3-5 Days Time of Disposition: 13:40
[2020-02-11 11:25] LABS: Basophils % (Auto) 0.4 % (0.0-1.8); Eosinophils # (Auto) 0.1 K/mm3 (0.0-0.4); Eosinophils % (Auto) 1.1 % (0.0-4.3); Hematocrit 35.3 % (35.5-45.6); Hemoglobin 11.8 gm/dl (11.8-15.2); Lymphocytes # (Auto) 0.7 K/mm3 (1.2-5.4); Lymphocytes % (Auto) 7.1 % (13.4-35.0); Mean Corpuscular HGB Conc 34 % (32-34); Mean Corpuscular Volume 89 fl (84-94); Monocytes # (Auto) 0.7 K/mm3 (0.0-0.8); Monocytes % (Auto) 7.2 % (0.0-7.3); Platelet Count 176 K/mm3 (140-440); Red Blood Count 3.98 M/mm3 (3.65-5.03); Red Cell Distribution Width 18.1 % (13.2-15.2)
[2020-02-11 11:49] LABS: Albumin 4.1 g/dL (3.9-5); Calcium 9.7 mg/dL (8.4-10.2)
--- NOTE | 2020-02-11 11:58 | Cat Scan Report ---
CT HEAD WITHOUT CONTRAST HISTORY: seizure like activity COMPARISON: None TECHNIQUE: CT imaging of the head was performed in the axial, sagittal, and coronal projections and bone algori thm in axial projection in the soft tissue algorithm. All CT scans at this location are performed using CT dose reduction for ALARA by means of automated e xposure control. CONTRAST: None. FINDINGS: Cerebral and Cerebellar Hemispheres: No evidence of mass or mass effect. No midline shift. No acute hemorrhage. No acute cortical infarction. No extra-axial fluid collection. Ventricles: Normal in size and configuration for age. Osseous Structures: No significant abnormality. Visualized Paranasal Sinuses: No significant abnormality. Additional Findings: None IMPRESSION: 1. No acute intracranial abnormality. NOTE: Acute infarct may not be visible by noncontrast CT. Signer Name: Jose Bernardo MD Signed: 02/11/2020 11:54 AM Workstation Name: [id number]
== END 2020-02-12 02:03 | disposition home or self-care (01) ==
LOC: ED 09:02
DX: R56.9 Unspecified convulsions (principal); I10 Essential (primary) hypertension; Z79.899 Other long term (current) drug therapy; Z98.890 Other specified postprocedural states; Z88.0 Allergy status to penicillin
CPT/HCPCS: 36415; 70450; 80053; 84146; 85025

== ENCOUNTER 2021-07-28 09:54 | Inpatient (IN) | payer MEDICAID ==
[2021-07-28 11:00] LABS: Basophils % (Auto) 1.2 % (0.0-1.8); Hematocrit 30.1 % (35.5-45.6); Hemoglobin 9.8 gm/dl (11.8-15.2); Lymphocytes # (Auto) 0.7 K/mm3 (1.2-5.4); Lymphocytes % (Auto) 29.6 % (13.4-35.0); Mean Corpuscular HGB Conc 32 % (32-34); Mean Corpuscular Volume 93 fl (84-94); Monocytes # (Auto) 0.1 K/mm3 (0.0-0.8); Monocytes % (Auto) 5.7 % (0.0-7.3); Red Blood Count 3.25 M/mm3 (3.65-5.03); Red Cell Distribution Width 18.4 % (13.2-15.2)
[2021-07-28 11:31] LABS: Platelet Count 93 K/mm3 (140-440)
[2021-07-28 11:41] LABS: Calcium 9.3 mg/dL (8.4-10.2)
[2021-07-28] MEDS ORDERED: ONDANSETRON 4 MG/2 ML INJ IV ONE (16:22)
[2021-07-28] MEDS ORDERED: MORPHINE 4 MG/1 ML INJ IV ONE (16:22)
--- NOTE | 2021-07-28 18:02 | Ultrasound Report ---
US abdomen limited INDICATION / CLINICAL INFORMATION: pain. COMPARISON: CT from 03/23/2019. FINDINGS: PANCREAS: No significant abnormality. ABDOMINAL AORTA: No significant abnormality. IVC: No significant abnormality. LIVER: Liver measures 18 cm. Liver demonstrates a normal echotexture and morphology. PORTAL VEIN: Normal hepatopedal blood flow in the main portal vein. GALLBLADDER: Gallbladder wall is thickened, measuring 6 mm with trace pericholecystic fluid. No charlie lithiasis. BILE DUCTS: Common bile duct is not imaged. RIGHT KIDNEY: Horseshoe kidney with innumerable renal cysts. Complex mass again seen in the right loan al moiety, measuring 5.6 cm. This was seen on prior CT from 2019, though appears increased in size; p reviously measured 4.8 cm. No hydronephrosis. FREE FLUID: None. ADDITIONAL FINDINGS: None. IMPRESSION: 1. Gallbladder wall is thickened with trace pericholecystic fluid. No cholelithiasis. This is nonspec ific but may be seen with acute acalculous cholecystitis or hepatitis. Recommend further evaluation w ith HIDA scan, as clinically indicated. 2. Horseshoe kidney with innumerable renal cysts and complex mass in the right renal moiety. This was present on prior study from 2019, though appears increased in size. Recommend follow-up with multiph asic CT or MRI. 3. Mild hepatomegaly. Signer Name: Ector Bolaños MD Signed: 07/28/2021 5:57 PM Workstation Name: [id number]
--- NOTE | 2021-07-28 18:03 | Cat Scan Report ---
CT ABDOMEN WITH CONTRAST HISTORY: epigastric pain. COMPARISON: CT abdomen/pelvis from 03/23/2019 TECHNIQUE: CT images of the abdomen were obtained following administration of intravenous contrast. All CT scans at this location are performed using CT dose reduction for ALARA by means of automated e xposure control. CONTRAST: 100 ml of intravenous contrast administered. FINDINGS: Lungs/bones: Lung bases are clear. The bones are diffusely sclerotic likely representing changes of renal osteodystrophy. There are bilateral L4 pars defects with grade 1 anterolisthesis of L4 on L5. Abdomen: There is a horseshoe kidney with polycystic liver disease again noted. Previously seen mass along the lower pole the right kidney worrisome for renal cell carcinoma shows interval enlargement now measuring 5.9 cm on image 115 of series 2, previously 5 cm on image 81 of series 2. There is also a new large mass versus complex cyst along the lower pole of the left kidney which was not previousl y seen and measures 7 cm on image 99. There is generalized gallbladder wall edema although there is also trace ascites and periportal edema . No internal gallbladder stone disease identified. The CBD is unremarkable. Tiny cyst again seen in the spleen. Spleen is otherwise unremarkable. The pancreas, adrenals, and pro ximal GI tract appear unremarkable. Urinary bladder is mostly collapsed and therefore poorly evaluated. Prostate is normal. No pelvic jeffrey e fluid. There is colonic diverticulosis with no acute inflammation identified. There is some retaine d contrast in the proximal colon. IMPRESSION: 1. Renal findings as outlined above consistent with horseshoe kidney and polycystic disease. Interval enlargement of the complex cyst versus mass arising from the lower pole moiety on the right and new lower pole moiety mass versus complex cyst also seen in the left. Recommend follow-up renal ultrasoun d to assess for any internal vascularity which would help differentiate mass versus complex cyst. 2. Gallbladder wall thickening with no internal stone disease. Given trace ascites and periportal param ma, these findings could be seen with gallbladder wall edema. Correlate with exam findings. If there is high clinical concern, a HIDA scan could differentiate true cholecystitis from gallbladder wall ed deysi. 3. Diffusely sclerotic bones most likely representing changes of renal osteodystrophy. Signer Name: Ceasar Cantu MD Signed: 07/28/2021 5:59 PM Workstation Name: [id number]
--- NOTE | 2021-07-28 18:46 | Emergency Department Report ---
ED General Adult HPI - General Chief complaint: Abdominal Pain Stated complaint: SHORTNESS OF BREATH/ABD PAIN Time Seen by Provider: 07/28/21 16:20 Source: patient Mode of arrival: Ambulatory Limitations: No Limitations - History of Present Illness Initial comments: The patient presents to the emergency department the chief complaint of abdominal pain that has been present for the last couple of days. Patient states the pain is located in the upper part of his abdomen he denies anything making it better or worse. Patient does endorse some nausea and vomiting with abdominal pain. Patient has end-stage renal disease and is dependent on hemodialysis. His dialysis days are Tuesdays, , Wednesday. -: Sudden Location: abdomen Radiation: non-radiation Severity scale (0 -10): 5 Quality: sharp Consistency: constant Improves with: none Worsens with: none Associated Symptoms: denies other symptoms Treatments Prior to Arrival: none - Related Data Home Medications Medication Instructions Recorded Confirmed Last Taken Cholecalciferol (Vitamin D3) 50,000 unit PO QWEEK 03/28/18 03/28/18 03/27/18 [Vitamin D3 50,000UNIT CAP] Folic Acid [Folvite] 1 mg PO QDAY 03/28/18 03/28/18 03/27/18 Sevelamer Carbonate [Renvela] 800 mg PO TIDWM 03/28/18 03/28/18 03/27/18 amLODIPine 10 mg PO DAILY 03/28/18 03/28/18 03/27/18 Previous Rx's Medication Instructions Recorded Last Taken Type Acetaminophen/Codeine [Tylenol 1 tab PO Q6H PRN #15 tab 03/23/19 Unknown Rx /Codeine # 3 tab] Ondansetron [Zofran Odt] 4 mg PO Q4HR PRN #20 tab.rapdis 03/23/19 Unknown Rx Sulfamethoxazole/Trimethoprim 1 each PO BID #14 tablet 03/23/19 Unknown Rx [Bactrim DS TAB] levETIRAcetam [Keppra TAB] 500 mg PO BID #60 tablet 02/11/20 Unknown Rx Allergies Allergy/AdvReac Type Severity Reaction Status Date / Time Penicillins Allergy Itching Verified 03/28/18 06:35 ED Review of Systems ROS: Stated complaint: SHORTNESS OF BREATH/ABD PAIN Other details as noted in HPI Comment: All other systems reviewed and negative Constitutional: denies: chills, fever Eyes: denies: eye pain, eye discharge, vision change ENT: denies: ear pain, throat pain Respiratory: denies: cough, shortness of breath, wheezing Cardiovascular: denies: chest pain, palpitations Endocrine: no symptoms reported Gastrointestinal: abdominal pain. denies: nausea, diarrhea Genitourinary: denies: urgency, dysuria Musculoskeletal: denies: back pain, joint swelling, arthralgia Skin: denies: rash, lesions Neurological: denies: headache, weakness, paresthesias Psychiatric: denies: anxiety, depression Hematological/Lymphatic: denies: easy bleeding, easy bruising ED Past Medical Hx - Past Medical History Hx Hypertension: Yes Hx Renal Disease: Yes (Dialysis Tue-Thr-Wed) - Surgical History Additional Surgical History: AV Fistula Left arm - Social History Smoking Status: Never Smoker - Medications Home Medications: Home Medications Medication Instructions Recorded Confirmed Last Taken Type Cholecalciferol (Vitamin D3) 50,000 unit PO QWEEK 03/28/18 03/28/18 03/27/18 History [Vitamin D3 50,000UNIT CAP] Folic Acid [Folvite] 1 mg PO QDAY 03/28/18 03/28/18 03/27/18 History Sevelamer Carbonate [Renvela] 800 mg PO TIDWM 03/28/18 03/28/18 03/27/18 History amLODIPine 10 mg PO DAILY 03/28/18 03/28/18 03/27/18 History Acetaminophen/Codeine [Tylenol 1 tab PO Q6H PRN #15 tab 03/23/19 Unknown Rx /Codeine # 3 tab] Ondansetron [Zofran Odt] 4 mg PO Q4HR PRN #20 tab.rapdis 03/23/19 Unknown Rx Sulfamethoxazole/Trimethoprim 1 each PO BID #14 tablet 03/23/19 Unknown Rx [Bactrim DS TAB] levETIRAcetam [Keppra TAB] 500 mg PO BID #60 tablet 02/11/20 Unknown Rx ED Physical Exam - General Limitations: No Limitations General appearance: alert, in no apparent distress - Head Head exam: Present: atraumatic, normocephalic - Eye Eye exam: Present: normal appearance, PERRL - ENT ENT exam: Present: mucous membranes moist - Neck Neck exam: Present: normal inspection - Respiratory Respiratory exam: Present: normal lung sounds bilaterally. Absent: respiratory distress, wheezes - Cardiovascular Cardiovascular Exam: Present: regular rate, normal rhythm. Absent: systolic murmur, diastolic murmur, rubs, gallop - GI/Abdominal GI/Abdominal exam: Present: soft, tenderness (Tender palpation of the right upper quadrant/epigastric region), normal bowel sounds. Absent: distended - Rectal Rectal exam: Present: deferred - Extremities Exam Extremities exam: Present: normal inspection - Back Exam Back exam: Present: normal inspection - Neurological Exam Neurological exam: Present: alert, oriented X3, CN II-XII intact. Absent: motor sensory deficit - Psychiatric Psychiatric exam: Present: normal affect, normal mood - Skin Skin exam: Present: warm, dry, intact, normal color. Absent: rash ED Course Vital Signs 07/28/21 10:16 Temperature 99.1 F Pulse Rate 91 H Respiratory 18 Rate Blood Pressure 126/77 O2 Sat by Pulse 96 Oximetry ED Medical Decision Making - Lab Data Result diagrams: 07/28/21 10:28 07/28/21 10:28 Lab Results 07/28/21 07/28/21 07/28/21 Range/Units 10:28 10:28 10:28 WBC 2.4 L (4.5-11.0) K/mm3 RBC 3.25 L (3.65-5.03) M/mm3 Hgb 9.8 L (11.8-15.2) gm/dl Hct 30.1 L (35.5-45.6) % MCV 93 (84-94) fl MCH 30 (28-32) pg MCHC 32 (32-34) % RDW 18.4 H (13.2-15.2) % Plt Count 93 L (140-440) K/mm3 Lymph % (Auto) 29.6 (13.4-35.0) % [place] % (Auto) 5.7 (0.0-7.3) % Eos % (Auto) 1.0 (0.0-4.3) % Baso % (Auto) 1.2 (0.0-1.8) % Lymph # (Auto) 0.7 L (1.2-5.4) K/mm3 [place] # (Auto) 0.1 (0.0-0.8) K/mm3 Eos # (Auto) 0.0 (0.0-0.4) K/mm3 Baso # (Auto) 0.0 (0.0-0.1) K/mm3 Seg Neutrophils % 62.5 (40.0-70.0) % Seg Neutrophils # 1.5 L (1.8-7.7) K/mm3 Sodium 141 (137-145) mmol/L Potassium 5.0 (3.6-5.0) mmol/L Chloride 92.4 L (98-107) mmol/L Carbon Dioxide 27 (22-30) mmol/L Anion Gap 27 mmol/L BUN 52 H (9-20) mg/dL Creatinine 11.7 H (0.8-1.3) mg/dL Estimated GFR 5 ml/min BUN/Creatinine Ratio 4 % Glucose 89 (75-100) mg/dL Calcium 9.3 (8.4-10.2) mg/dL Amylase 80 (27-131) units/L Lipase 23 (13-60) units/L - Radiology Data Radiology results: report reviewed - Medical Decision Making Discussed results with patient Critical care attestation.: If time is entered above; I have spent that time in minutes in the direct care of this critically ill patient, excluding procedure time. ED Disposition Clinical Impression: Cholecystitis Disposition: 01 HOME / SELF CARE / HOMELESS Is pt being admited?: Yes Does the pt Need Aspirin: No Condition: Fair
--- NOTE | 2021-07-28 19:13 | History and Physical Report ---
History of Present Illness Chief complaint: My stomach hurts History of present illness: 46 YO Male with ESRD on HF(T,R,Sa), Seizure Disorder, HTN presents ED for evaluation. Patient reports my stomach has been hurting". Patient states that over the past 3 days he has experienced abdominal pain. Patient states that pain is localized to the epigastric region of his abdomen. Patient acknowledges nausea, multiple episodes of vomiting. Patient states the pain is 5/10, constant, without exacerbating or alleviating factors. Patient transported to [facility] via private vehicle for further care and evaluation of the aforementioned symptoms. The patient was seen and evaluated in the emergency department. All lab and imaging studies reviewed. Patient with CT scan of the abdomen and pelvis and was found to have evidence of acute cholecystitis. Surgical team consulted in ED. Patient denies fever, chills, chest pain, palpitation, productive cough, skin rash and recent contact, ingestion of food/water from new or different sources, known exposure to COVID-19. Prior mission on 07/15/2018 reviewed. All medication listed at time of admission has been reconciled. Advanced care planning conducted in ED. Nephrology team consulted in ED. - Ge Past History Past Medical History: ESRD, hypertension, seizures, other (See HPI) Past Surgical History: Other ( dialysis access) Social history: . denies: smoking, alcohol abuse, prescription drug abuse Family history: hypertension Medications and Allergies Allergies Allergy/AdvReac Type Severity Reaction Status Date / Time Penicillins Allergy Itching Verified 03/28/18 06:35 Home Medications Medication Instructions Recorded Confirmed Last Taken Type Cholecalciferol (Vitamin D3) 50,000 unit PO QWEEK 03/28/18 03/28/18 03/27/18 H istory [Vitamin D3 50,000UNIT CAP] Folic Acid [Folvite] 1 mg PO QDAY 03/28/18 03/28/18 03/27/18 History Sevelamer Carbonate [Renvela] 800 mg PO TIDWM 03/28/18 03/28/18 03/27/18 History amLODIPine 10 mg PO DAILY 03/28/18 03/28/18 03/27/18 History Acetaminophen/Codeine [Tylenol 1 tab PO Q6H PRN #15 tab 03/23/19 Unknown Rx /Codeine # 3 tab] Ondansetron [Zofran Odt] 4 mg PO Q4HR PRN #20 tab.rapdis 03/23/19 Unknown Rx Sulfamethoxazole/Trimethoprim 1 each PO BID #14 tablet 03/23/19 Unknown Rx [Bactrim DS TAB] levETIRAcetam [Keppra TAB] 500 mg PO BID #60 tablet 02/11/20 Unknown Rx Review of Systems Constitutional: no weight loss, no weight gain, no fever, no chills Ears, nose, mouth and throat: no ear pain, no tinnitis, no nose pain, no nasal discharge, no sinus pressure Cardiovascular: no chest pain, no palpitations, no syncope, no lightheadedness Respiratory: no cough, no excessive sputum Gastrointestinal: abdominal pain, nausea, vomiting, no hematemesis, no coffee ground emesis, no hematochezia, no early satiety, no belching Genitourinary Male: no hematuria, no flank pain, no discharge, no urinary frequency, no urinary hesitancy Rectal: no pain, no bleeding Musculoskeletal: no neck stiffness, no neck pain, no low back pain Integumentary: no rash, no pruritis, no sores, no wounds, no jaundice, no blisters Neurological: no transient paralysis, no weakness, no parathesias, no tingling, no seizures Psychiatric: no anxiety, no sleep disturbances, no insomnia, no hypersomnia, no change in libido Endocrine: no cold intolerance, no polyphagia, no excessive thirst, no polyuria, no excessive sweating Hematologic/Lymphatic: no easy bruising, no easy bleeding Allergic/Immunologic: no urticaria, no wheezing Exam - Constitutional Vitals: Temp Pulse Resp BP Pulse Ox 99.1 F 91 H 18 126/77 96 07/28/21 10:16 07/28/21 10:16 07/28/21 10:16 07/28/21 10:16 07/28/21 10:16 General appearance: Present: mild distress - EENT Eyes: Present: PERRL ENT: hearing intact, clear oral mucosa - Neck Neck: Present: supple, normal ROM - Respiratory Respiratory effort: normal Respiratory: bilateral: CTA - Cardiovascular Heart Sounds: Present: S1 & S2. Absent: rub, click - Extremities Extremities: pulses symmetrical, No edema Peripheral Pulses: within normal limits - Abdominal General gastrointestinal: Present: soft, tender, non-distended, normal bowel sounds. Absent: absent bowel sounds, hepatomegaly, splenomegaly Male genitourinary: Present: normal - Integumentary Integumentary: Present: clear, warm, dry - Musculoskeletal Musculoskeletal: gait normal, strength equal bilaterally - Psychiatric Psychiatric: appropriate mood/affect, intact judgment & insight - Neurologic Neurologic: CNII-XII intact, moves all extremities Results - Labs CBC & Chem 7: 07/28/21 10:28 07/28/21 10:28 Labs: Abnormal lab results 07/28/21 07/28/21 Range/Units 10:28 10:28 WBC 2.4 L (4.5-11.0) K/mm3 RBC 3.25 L (3.65-5.03) M/mm3 Hgb 9.8 L (11.8-15.2) gm/dl Hct 30.1 L (35.5-45.6) % RDW 18.4 H (13.2-15.2) % Plt Count 93 L (140-440) K/mm3 Lymph # (Auto) 0.7 L (1.2-5.4) K/mm3 Seg Neutrophils # 1.5 L (1.8-7.7) K/mm3 Chloride 92.4 L (98-107) mmol/L BUN 52 H (9-20) mg/dL Creatinine 11.7 H (0.8-1.3) mg/dL Assessment and Plan - Patient Problems (1) Acute cholecystitis Current Visit: Yes Status: Acute Plan to address problem: CT scan abdomen pelvis, abdominal ultrasound, call surgery team consulted in ED, serial abdominal exam, pain control, n.p.o., IV fluid resuscitation therapy, further care and evaluation as per surgical team. (2) Fluid overload Current Visit: Yes Status: Acute Qualifiers: Hypervolemia type: unspecified Qualified Code(s): E87.70 - Fluid overload, unspecified Plan to address problem: Supportive care, dialysis as per renal team, monitor fluid balance. (3) ESRD (end stage renal disease) on dialysis Current Visit: No Status: Chronic Plan to address problem: Nephrology team consulted in ED, strict I/O, avoid nephrotoxic agents, dialysis as per renal team. (4) HTN (hypertension) Current Visit: Yes Status: Acute Qualifiers: Hypertension type: primary hypertension Qualified Code(s): I10 - Essential (primary) hypertension Plan to address problem: Monitor blood pressure every shift, continue medical management. (5) Seizure disorder Current Visit: Yes Status: Acute Plan to address problem: Continue antiepileptic therapy, seizure precautions. (6) DVT prophylaxis Current Visit: Yes Status: Acute Plan to address problem: SCD to bilateral lower extremities while in bed (7) Advance care planning Current Visit: Yes Status: Acute Plan to address problem: Disease education data, care plan discussed, diagnoses discussed, prognosis discussed and the patient is full code. Patient knowledges understanding agreement with care plan, +30 minutes. (8) Preventative health care Current Visit: Yes Status: Acute Plan to address problem: Patient counseled regarding increase protein intake, risk factor reduction, outpatient follow-up with primary care physician for all age and risk factor appropriate screening test. +30 minutes.
[2021-07-28] MEDS ORDERED: ACETAMINOPHEN 325 MG TAB PO PRN (19:14)
[2021-07-28] MEDS ORDERED: ALBUTEROL 2.5 MG/3 ML NEBU IH PRN (19:14)
[2021-07-28] MEDS ORDERED: ONDANSETRON 4 MG/2 ML INJ IV PRN (19:14)
[2021-07-28 20:09] LABS: INR 1.18 (0.87-1.13)
[2021-07-28 20:10] LABS: Partial Thromboplastin Time 45.8 Sec. (24.2-36.6)
[2021-07-28] MEDS ORDERED: hydrALAZINE 20 MG/1 ML INJ IV PRN (21:56)
[2021-07-28] MEDS ORDERED: hydrALAZINE 20 MG/1 ML INJ IV SCH (22:00)
[2021-07-28] MEDS: levETIRAcetam 500 MG TAB PO SCH (22:06)
[2021-07-28] MEDS: HYDROmorphone 0.5 MG/0.5 ML INJ IV PRN (22:07)
[2021-07-29 06:58] LABS: Hematocrit 25.1 % (35.5-45.6); Hemoglobin 8.2 gm/dl (11.8-15.2); Mean Corpuscular HGB Conc 33 % (32-34); Mean Corpuscular Volume 92 fl (84-94); Red Blood Count 2.73 M/mm3 (3.65-5.03); Red Cell Distribution Width 17.9 % (13.2-15.2)
[2021-07-29 07:07] LABS: Platelet Count 88 K/mm3 (140-440)
[2021-07-29 07:18] LABS: Albumin 3.2 g/dL (3.9-5); Calcium 8.5 mg/dL (8.4-10.2)
--- NOTE | 2021-07-29 10:04 | Electrocardiograph Report ---
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
[2021-07-29] MEDS: SEVELAMER CARBONATE 800 MG TAB PO SCH ×3 (10:08→16:47)
[2021-07-29] MEDS: amLODIPine 10 MG TAB PO SCH (10:11)
[2021-07-29] MEDS: FOLIC ACID 1 MG TAB PO SCH (10:11)
[2021-07-29] MEDS: levETIRAcetam 500 MG TAB PO SCH ×2 (10:14→22:05)
[2021-07-29 11:27] LABS: Anisocytosis Few; Band Neutrophils # (Manual) 0.3 K/mm3; Basophils % (Manual) 0 % (0.0-1.8); Hypochromasia Few; Platelet Estimate Consistent w Auto; Total Cells Counted 100
[2021-07-29] MEDS ORDERED: SODIUM CHLORIDE 0.9% 100 ML IV PRN (12:16)
--- NOTE | 2021-07-29 12:25 | Consultation ---
History of Present Illness - Reason for Consult Consult date: 07/29/21 end stage renal disease - History of Present Illness 46yr M with h/o ESRD on HD at 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 denies: smoking, alcohol abuse, prescription drug abuse Family history: hypertension Medications and Allergies Allergies Allergy/AdvReac Type Severity Reaction Status Date / Time Penicillins Allergy Itching Verified 07/29/21 12:14 Home Medications Medication Instructions Recorded Confirmed Last Taken Type amLODIPine 10 mg PO DAILY 03/28/18 03/28/18 03/27/18 History Ferric Citrate (Nf) [Auryxia] 630 mg PO TIDWM 07/29/21 07/29/21 07/27/21 History Hydralazine HCl 50 mg PO BID 07/29/21 07/29/21 07/27/21 History Naproxen [Naprosyn] 500 mg PO BID 07/29/21 07/29/21 07/27/21 History Sodium Zirconium Cyclosilicate 10 gm PO Q48H 07/29/21 07/29/21 07/27/21 History [Lokelma] cloNIDine [Catapres] 0.1 mg PO TID 07/29/21 07/29/21 07/27/21 History Active Meds: Active Medications Acetaminophen (Acetaminophen 325 Mg Tab) 650 mg PO Q4H PRN PRN Reason: Pain MILD(1-3)/Fever >100.5/MALLORY Albuterol (Albuterol 2.5 Mg/3 Ml Nebu) 2.5 mg IH Q4HRT PRN PRN Reason: Shortness Of Breath Amlodipine Besylate (Amlodipine 10 Mg Tab) 10 mg PO DAILY [facility] Last Admin: 07/29/21 10:11 Dose: 10 mg Ergocalciferol (Ergocalciferol (Vit D2) 50,000 Unit Cap) 50,000 unit PO Mo CHERELLE Folic Acid (Folic Acid 1 Mg Tab) 1 mg PO QDAY [facility] Last Admin: 07/29/21 10:11 Dose: 1 mg Hydralazine HCl (Hydralazine 20 Mg/1 Ml Inj) 10 mg IV Q6HR PRN PRN Reason: htn Hydromorphone HCl (Hydromorphone 0.5 Mg/0.5 Ml Inj) 0.5 mg IV Q6H PRN PRN Reason: Pain , Severe (7-10) Last Admin: 07/28/21 22:07 Dose: 0.5 mg Sodium Chloride (Nacl 0.9%) 100 mls @ 999 mls/hr IV VERNA PRN PRN Reason: Hypotension Levetiracetam (Levetiracetam 500 Mg Tab) 500 mg PO BID [facility] Last Admin: 07/29/21 10:14 Dose: 500 mg Ondansetron HCl (Ondansetron 4 Mg/2 Ml Inj) 4 mg IV Q8H PRN PRN Reason: Nausea And Vomiting Oxycodone/Acetaminophen (Oxycodone /Acetaminophen 5-325mg Tab) 1 tab PO Q6H PRN PRN Reason: Pain, Moderate (4-6) Sevelamer Carbonate (Sevelamer Carbonate 800 Mg Tab) 800 mg PO TIDWM [facility] Last Admin: 07/29/21 10:08 Dose: Not Given Sodium Chloride (Sodium Chloride 0.9% 10 Ml Flush Syringe) 10 ml IV BID [facility] Last Admin: 07/29/21 10:12 Dose: 10 ml Sodium Chloride (Sodium Chloride 0.9% 10 Ml Flush Syringe) 10 ml IV PRN PRN PRN Reason: LINE FLUSH Review of Systems Constitutional: other, no fever, no chills Cardiovascular: no chest pain, no palpitations, no edema, no leg edema Respiratory: no shortness of breath Gastrointestinal: abdominal pain, no nausea, no vomiting, no diarrhea, no constipation Genitourinary Male: no dysuria Exam - Vital Signs Vital signs: Vital Signs Temp Pulse Resp BP Pulse Ox 99.1 F 91 H 18 126/77 96 07/28/21 10:16 07/28/21 10:16 07/28/21 10:16 07/28/21 10:16 07/28/21 10:16 - General Appearance General appearance: other (Awake & alert, in no acute distress) EENT: PERRL, hearing intact Neck: Present: neck supple. Absent: JVD/HJR Respiratory: Clear to Ascultation Heart: regular, S1S2 Gastrointestinal: Present: other (Soft). Absent: tenderness Integumentary: no rash, warm and dry Neurologic: no focal deficit Psychiatric: mood/affect appropriate Results - Lab Results 07/29/21 05:51 07/29/21 05:51 Most recent lab results Calcium 8.5 mg/dL (8.4-10.2) 07/29/21 05:51 Assessment and Plan ESRD - HD today via [facility] Forearm AVF with multiple Aneurysms Hyperkalemia - Low K bath on HD, f/u labs Abd Pain r/o Cholecystitis - F/u w/u & Mx Thanks, will f/u with you
--- NOTE | 2021-07-29 12:39 | Magnetic Resonance Report ---
MRI ABDOMEN WITHOUT CONTRAST MRCP INDICATION / CLINICAL INFORMATION: elevated LFTs, ABD PAIN. TECHNIQUE: Multiplanar, multisequence series were obtained through the abdomen. Thin collimation coronal and rad ial MRCP images. COMPARISON: CT abdomen pelvis with contrast 07/28/2021 FINDINGS: LIVER: The liver is enlarged with the right hepatic lobe measuring 23 cm in coronal plane. The liver is diffusely decreased signal suggesting iron deposition. No cirrhotic changes or mass. GALLBLADDER: There is diffuse gallbladder wall edema but no evidence for gallstones or abnormal dilat ation. BILE DUCTS: No significant abnormality. The common bile duct measures 5 mm on MRCP imaging. No choled ocholithiasis. PANCREAS: No significant abnormality. SPLEEN: The spleen is normal size and contour. The spleen is diffusely decreased signal suggesting ir on deposition. ADRENALS: No significant abnormality. 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 Very little normal renal parenchyma is demonstrated. There is no evidence for renal mass on noncontrast MRI. Some of the cysts are slightly complex with internal debris or he morrhagic products. No hydronephrosis. STOMACH AND VISUALIZED BOWEL: No significant abnormality. PERITONEUM: There is small perihepatic and perisplenic ascites. No free air. No fluid collection. LYMPH NODES: No significant adenopathy. AORTA and ARTERIES: No significant abnormality. IVC and VEINS: No significant abnormality. ADDITIONAL FINDINGS: Mild cardiomegaly and trace right pleural effusion. SKELETAL SYSTEM: No significant abnormality. IMPRESSION: 1. Moderate hepatomegaly. The liver is diffuse decreased signal suggesting iron deposition. The splee n is normal size measuring 11.8 cm in length and also demonstrates diffuse decreased signal concernin g for an and position. Has this patient had multiple blood transfusions There is no evidence for hepa tic mass or cirrhotic changes. 2. Mild nonspecific gallbladder wall edema is identified. No evidence for cholelithiasis or biliary d ilatation. 3. Polycystic horseshoe kidney as described. No evidence for hydronephrosis or obvious mass on noncon trast MRI. 4. Mild cardiomegaly, trace right pleural effusion and small ascites. Signer Name: Christiano Khoury Jr, MD Signed: 07/29/2021 12:35 PM Workstation Name: [id number]
--- NOTE | 2021-07-29 12:52 | Consultation ---
History of Present Illness Consult date: 07/29/21 - History of present illness History of present illness: 46 year old male ESRD-DD admitted through ED with two day hx of RUQ abdominal pain with nausea and vomiting. Pain was 10 out of 10 on admission currently 5 out of 5 to pain medication. Patient has CT scan and abdominal ultrasound that showed significant gallbladder wall edema and thickening but no stones. Patient had an MRCP today that was negative for choledocholithiasis or other biliary stones. This is ordered due to an elevated bilirubin and other LFTs. Past History Past Medical History: ESRD, hypertension, seizures, other (See HPI) Past Surgical History: Other ( dialysis access - AV fistula) Social history: . denies: smoking, alcohol abuse, prescription drug abuse Family history: hypertension Medications and Allergies Allergies Allergy/AdvReac Type Severity Reaction Status Date / Time Penicillins Allergy Itching Verified 07/29/21 12:14 Home Medications Medication Instructions Recorded Confirmed Last Taken Type amLODIPine 10 mg PO DAILY 03/28/18 07/29/21 07/27/21 History Ferric Citrate (Nf) [Auryxia] 630 mg PO TIDWM 07/29/21 07/29/21 07/27/21 History Hydralazine HCl 50 mg PO BID 07/29/21 07/29/21 07/27/21 History Naproxen [Naprosyn] 500 mg PO BID 07/29/21 07/29/21 07/27/21 History Sodium Zirconium Cyclosilicate 10 gm PO Q48H 07/29/21 07/29/21 07/27/21 History [Lokelma] cloNIDine [Catapres] 0.1 mg PO TID 07/29/21 07/29/21 07/27/21 History Active Meds: Active Medications Acetaminophen (Acetaminophen 325 Mg Tab) 650 mg PO Q4H PRN PRN Reason: Pain MILD(1-3)/Fever >100.5/MALLORY Albuterol (Albuterol 2.5 Mg/3 Ml Nebu) 2.5 mg IH Q4HRT PRN PRN Reason: Shortness Of Breath Amlodipine Besylate (Amlodipine 10 Mg Tab) 10 mg PO DAILY CHERELLE Last Admin: 07/29/21 10:11 Dose: 10 mg Ergocalciferol (Ergocalciferol (Vit D2) 50,000 Unit Cap) 50,000 unit PO Mo CHERELLE Folic Acid (Folic Acid 1 Mg Tab) 1 mg PO QDAY [facility] Last Admin: 07/29/21 10:11 Dose: 1 mg Hydralazine HCl (Hydralazine 20 Mg/1 Ml Inj) 10 mg IV Q6HR PRN PRN Reason: htn Hydromorphone HCl (Hydromorphone 0.5 Mg/0.5 Ml Inj) 0.5 mg IV Q6H PRN PRN Reason: Pain , Severe (7-10) Last Admin: 07/28/21 22:07 Dose: 0.5 mg Sodium Chloride (Nacl 0.9%) 100 mls @ 999 mls/hr IV VERNA PRN PRN Reason: Hypotension Levetiracetam (Levetiracetam 500 Mg Tab) 500 mg PO BID [facility] Last Admin: 07/29/21 10:14 Dose: 500 mg Ondansetron HCl (Ondansetron 4 Mg/2 Ml Inj) 4 mg IV Q8H PRN PRN Reason: Nausea And Vomiting Oxycodone/Acetaminophen (Oxycodone /Acetaminophen 5-325mg Tab) 1 tab PO Q6H PRN PRN Reason: Pain, Moderate (4-6) Sevelamer Carbonate (Sevelamer Carbonate 800 Mg Tab) 800 mg PO TIDWM [facility] Last Admin: 07/29/21 10:08 Dose: Not Given Sodium Chloride (Sodium Chloride 0.9% 10 Ml Flush Syringe) 10 ml IV BID [facility] Last Admin: 07/29/21 10:12 Dose: 10 ml Sodium Chloride (Sodium Chloride 0.9% 10 Ml Flush Syringe) 10 ml IV PRN PRN PRN Reason: LINE FLUSH Review of Systems All systems: negative - Constitutional poor appetite - Gastrointestinal abdominal pain, nausea, vomiting Exam Vital Signs Temp Pulse Resp BP Pulse Ox 99.1 F 91 H 18 126/77 96 07/28/21 10:16 07/28/21 10:16 07/28/21 10:16 07/28/21 10:16 07/28/21 10:16 - General physical appearance Positive: well developed, no distress, no pain - Eyes Negative: icteric - ENT Positive: no hearing loss - Respiratory Positive: normal expansion, normal respiratory effort - Cardiovascular Heart Sounds: Present: S1 & S2 - Extremities Extremities: no ischemia - Abdomen Abdomen: Present: soft, other (Right upper quadrant tenderness to deep palpation). Absent: distended, guarding, rigid - Neurologic Neurologic: alert and oriented to time, place and person - Additional Findings Left arm distal AV fistula Results - Labs 07/29/21 05:51 07/29/21 05:51 Abnormal lab results 07/28/21 07/28/21 07/29/21 Range/Units 19:23 23:26 05:51 WBC 2.9 L (4.5-11.0) K/mm3 RBC 2.73 L (3.65-5.03) M/mm3 Hgb 8.2 L (11.8-15.2) gm/dl Hct 25.1 L (35.5-45.6) % RDW 17.9 H (13.2-15.2) % Plt Count 88 L (140-440) K/mm3 Seg Neutrophils # Man 1.6 L (1.8-7.7) K/mm3 Lymphocytes # (Manual) 0.7 L (1.2-5.4) K/mm3 PT 16.4 H (12.2-14.9) Sec. INR 1.18 H (0.87-1.13) APTT 45.8 H (24.2-36.6) Sec. Potassium (3.6-5.0) mmol/L Chloride (98-107) mmol/L BUN (9-20) mg/dL Creatinine (0.8-1.3) mg/dL Glucose (75-100) mg/dL Total Bilirubin (0.1-1.2) mg/dL AST (5-40) units/L ALT (7-56) units/L Alkaline Phosphatase (35-129) units/L NT-Pro-B Natriuret Pep 84949 H (0-450) pg/mL Total Protein (6.3-8.2) g/dL Albumin (3.9-5) g/dL 07/29/21 Range/Units 05:51 WBC (4.5-11.0) K/mm3 RBC (3.65-5.03) M/mm3 Hgb (11.8-15.2) gm/dl Hct (35.5-45.6) % RDW (13.2-15.2) % Plt Count (140-440) K/mm3 Seg Neutrophils # Man (1.8-7.7) K/mm3 Lymphocytes # (Manual) (1.2-5.4) K/mm3 PT (12.2-14.9) Sec. INR (0.87-1.13) APTT (24.2-36.6) Sec. Potassium 5.4 H (3.6-5.0) mmol/L Chloride 90.0 L (98-107) mmol/L BUN 68 H (9-20) mg/dL Creatinine 14.4 H (0.8-1.3) mg/dL Glucose 104 H (75-100) mg/dL Total Bilirubin 2.30 H (0.1-1.2) mg/dL AST 169 H (5-40) units/L ALT 259 H (7-56) units/L Alkaline Phosphatase 398 H (35-129) units/L NT-Pro-B Natriuret Pep (0-450) pg/mL Total Protein 6.2 L (6.3-8.2) g/dL Albumin 3.2 L (3.9-5) g/dL Diabetes panel 07/29/21 Range/Units 05:51 Sodium 139 (137-145) mmol/L Potassium 5.4 H (3.6-5.0) mmol/L Chloride 90.0 L (98-107) mmol/L Carbon Dioxide 28 (22-30) mmol/L BUN 68 H (9-20) mg/dL Creatinine 14.4 H (0.8-1.3) mg/dL Glucose 104 H (75-100) mg/dL Calcium 8.5 (8.4-10.2) mg/dL AST 169 H (5-40) units/L ALT 259 H (7-56) units/L Alkaline Phosphatase 398 H (35-129) units/L Total Protein 6.2 L (6.3-8.2) g/dL Albumin 3.2 L (3.9-5) g/dL Calcium panel 07/29/21 Range/Units 05:51 Calcium 8.5 (8.4-10.2) mg/dL Albumin 3.2 L (3.9-5) g/dL Pituitary panel 07/29/21 Range/Units 05:51 Sodium 139 (137-145) mmol/L Potassium 5.4 H (3.6-5.0) mmol/L Chloride 90.0 L (98-107) mmol/L Carbon Dioxide 28 (22-30) mmol/L BUN 68 H (9-20) mg/dL Creatinine 14.4 H (0.8-1.3) mg/dL Glucose 104 H (75-100) mg/dL Calcium 8.5 (8.4-10.2) mg/dL Adrenal panel 07/29/21 Range/Units 05:51 Sodium 139 (137-145) mmol/L Potassium 5.4 H (3.6-5.0) mmol/L Chloride 90.0 L (98-107) mmol/L Carbon Dioxide 28 (22-30) mmol/L BUN 68 H (9-20) mg/dL Creatinine 14.4 H (0.8-1.3) mg/dL Glucose 104 H (75-100) mg/dL Calcium 8.5 (8.4-10.2) mg/dL Total Bilirubin 2.30 H (0.1-1.2) mg/dL AST 169 H (5-40) units/L ALT 259 H (7-56) units/L Alkaline Phosphatase 398 H (35-129) units/L Total Protein 6.2 L (6.3-8.2) g/dL Albumin 3.2 L (3.9-5) g/dL - Imaging CT scan - abdomen: report reviewed, image reviewed CT scan - pelvis: report reviewed, image reviewed US - abdomen: report reviewed, image reviewed Assessment and Plan 46-year-old male with right upper quadrant pain with possible cholecystitis based on gallbladder wall edema. Patient is afebrile and stable with no elevation in white blood cell count. Since patient has no biliary stone disease will get HIDA scan to see if patient has active acute cholecystitis. We will repeat CMP to monitor LFTs, and follow-up on HIDA scan results. Based on results we will have further discussions with patient regarding possible cholecystectomy.
[2021-07-29 16:10] LABS: Hepatitis B Surface Antigen Non-Reactive (Negative); Hepatitis C Virus Antibody Non-Reactive (NonReactive)
--- NOTE | 2021-07-29 17:43 | Progress Note ---
Assessment and Plan Assessment and plan: #Acute cholecystitis #Elevated transaminases #Hyperbilirubinemia Continue analgesics as needed and transition to clear liquid diet per general surgery Status post MRCP (07/29/2021) unremarkable for gallstones and biliary tree. Pending HIDA scan for further evaluation. General surgery consulted; appreciate recs If HIDA scan was found to be unremarkable and patient's pain has significantly improved or resolved, laparoscopic cholecystectomy can likely be performed in outpatient setting. Continue to monitor. #Fluid overloadresolved Supportive care, dialysis as per renal team, monitor fluid balance. #ESRD (end stage renal disease) on dialysis Nephrology team consulted in ED, strict I/O, avoid nephrotoxic agents, dialysis as per renal team. #Hypertension - home medications: - current medications: - SBP goal <160 and DBP goal <90 while inpatient - continue to monitor #Seizure disorder Continue antiepileptic therapy, seizure precautions. #Advance care planning Disease education data, care plan discussed, diagnoses discussed, prognosis discussed and the patient is full code. Patient knowledges understanding agreement with care plan, +30 minutes. Disposition Plan: Continue medical management Total Time Spent with Patient (Minutes): 45 minutes History Interval history: No acute events overnight. Hospitalist Physical - Constitutional Vitals: Temp Pulse Resp BP Pulse Ox 98.9 F 73 18 139/88 99 07/29/21 09:46 07/29/21 09:46 07/29/21 09:46 07/29/21 10:11 07/29/21 13:11 General appearance: Present: no acute distress, well-nourished - EENT Eyes: Present: PERRL, EOM intact ENT: hearing intact, clear oral mucosa, dentition normal - Neck Neck: Present: supple, normal ROM - Respiratory Respiratory effort: normal Respiratory: bilateral: CTA - Cardiovascular Rhythm: regular Heart Sounds: Present: S1 & S2 - Extremities Extremities: no ischemia, pulses intact, pulses symmetrical, No edema, normal temperature, normal color, abnormal (Left upper extremity AV fistula with palpable thrill) Peripheral Pulses: within normal limits - Abdominal General gastrointestinal: soft, non-tender, non-distended, normal bowel sounds - Integumentary Integumentary: Present: clear, warm, dry - Psychiatric Psychiatric: appropriate mood/affect, intact judgment & insight, memory intact, cooperative - Neurologic Neurologic: CNII-XII intact, moves all extremities - Allied Health Allied health notes reviewed: nursing Results - Labs CBC & Chem 7: 07/29/21 05:51 07/29/21 05:51 Labs: Laboratory Last Values WBC 2.9 K/mm3 (4.5-11.0) L 07/29/21 05:51 RBC 2.73 M/mm3 (3.65-5.03) L 07/29/21 05:51 Hgb 8.2 gm/dl (11.8-15.2) L 07/29/21 05:51 Hct 25.1 % (35.5-45.6) L 07/29/21 05:51 MCV 92 fl (84-94) 07/29/21 05:51 MCH 30 pg (28-32) 07/29/21 05:51 MCHC 33 % (32-34) 07/29/21 05:51 RDW 17.9 % (13.2-15.2) H 07/29/21 05:51 Plt Count 88 K/mm3 (140-440) L 07/29/21 05:51 Lymph % (Auto) 29.6 % (13.4-35.0) 07/28/21 10:28 [place] % (Auto) 5.7 % (0.0-7.3) 07/28/21 10:28 Eos % (Auto) 1.0 % (0.0-4.3) 07/28/21 10:28 Baso % (Auto) 1.2 % (0.0-1.8) 07/28/21 10:28 Lymph # (Auto) 0.7 K/mm3 (1.2-5.4) L 07/28/21 10:28 [place] # (Auto) 0.1 K/mm3 (0.0-0.8) 07/28/21 10:28 Eos # (Auto) 0.0 K/mm3 (0.0-0.4) 07/28/21 10:28 Baso # (Auto) 0.0 K/mm3 (0.0-0.1) 07/28/21 10:28 Add Manual Diff Complete 07/29/21 05:51 Total Counted 100 07/29/21 05:51 Seg Neutrophils % 62.5 % (40.0-70.0) 07/28/21 10:28 Seg Neuts % (Manual) 54.0 % (40.0-70.0) 07/29/21 05:51 Band Neutrophils % 10.0 % 07/29/21 05:51 Lymphocytes % (Manual) 24.0 % (13.4-35.0) 07/29/21 05:51 Reactive Lymphs % (Man) 3.0 % 07/29/21 05:51 Monocytes % (Manual) 6.0 % (0.0-7.3) 07/29/21 05:51 Eosinophils % (Manual) 3.0 % (0.0-4.3) 07/29/21 05:51 Basophils % (Manual) 0 % (0.0-1.8) 07/29/21 05:51 Metamyelocytes % 0 % 07/29/21 05:51 Myelocytes % 0 % 07/29/21 05:51 Promyelocytes % 0 % 07/29/21 05:51 Blast Cells % 0 % 07/29/21 05:51 Nucleated RBC % Not Reportable 07/29/21 05:51 Seg Neutrophils # 1.5 K/mm3 (1.8-7.7) L 07/28/21 10:28 Seg Neutrophils # Man 1.6 K/mm3 (1.8-7.7) L 07/29/21 05:51 Band Neutrophils # 0.3 K/mm3 07/29/21 05:51 Lymphocytes # (Manual) 0.7 K/mm3 (1.2-5.4) L 07/29/21 05:51 Abs React Lymphs (Man) 0.1 K/mm3 07/29/21 05:51 Monocytes # (Manual) 0.2 K/mm3 (0.0-0.8) 07/29/21 05:51 Eosinophils # (Manual) 0.1 K/mm3 (0.0-0.4) 07/29/21 05:51 Basophils # (Manual) 0.0 K/mm3 (0.0-0.1) 07/29/21 05:51 Metamyelocytes # 0.0 K/mm3 07/29/21 05:51 Myelocytes # 0.0 K/mm3 07/29/21 05:51 Promyelocytes # 0.0 K/mm3 07/29/21 05:51 Blast Cells # 0.0 K/mm3 07/29/21 05:51 WBC Morphology Not Reportable 07/29/21 05:51 Hypersegmented Neuts Not Reportable 07/29/21 05:51 Hyposegmented Neuts Not Reportable 07/29/21 05:51 Hypogranular Neuts Not Reportable 07/29/21 05:51 Smudge Cells Not Reportable 07/29/21 05:51 Toxic Granulation Not Reportable 07/29/21 05:51 Toxic Vacuolation Not Reportable 07/29/21 05:51 Dohle Bodies Not Reportable 07/29/21 05:51 Pelger-Huet Anomaly Not Reportable 07/29/21 05:51 Jazmine Rods Not Reportable 07/29/21 05:51 Platelet Estimate Consistent w auto 07/29/21 05:51 Clumped Platelets Not Reportable 07/29/21 05:51 Plt Clumps, EDTA Not Reportable 07/29/21 05:51 Large Platelets Not Reportable 07/29/21 05:51 Giant Platelets Not Reportable 07/29/21 05:51 Platelet Satelliting Not Reportable 07/29/21 05:51 Plt Morphology Comment Not Reportable 07/29/21 05:51 RBC Morphology Not Reportable 07/29/21 05:51 Dimorphic RBCs Not Reportable 07/29/21 05:51 Polychromasia Not Reportable 07/29/21 05:51 Hypochromasia Few 07/29/21 05:51 Poikilocytosis Not Reportable 07/29/21 05:51 Anisocytosis Few 07/29/21 05:51 Microcytosis Not Reportable 07/29/21 05:51 Macrocytosis Not Reportable 07/29/21 05:51 Spherocytes Not Reportable 07/29/21 05:51 Pappenheimer Bodies Not Reportable 07/29/21 05:51 Sickle Cells Not Reportable 07/29/21 05:51 Target Cells Not Reportable 07/29/21 05:51 Tear Drop Cells Not Reportable 07/29/21 05:51 Ovalocytes Not Reportable 07/29/21 05:51 Helmet Cells Not Reportable 07/29/21 05:51 [place] Bodies Not Reportable 07/29/21 05:51 [place] Rings Not Reportable 07/29/21 05:51 Aj Cells Not Reportable 07/29/21 05:51 Bite Cells Not Reportable 07/29/21 05:51 Crenated Cell Not Reportable 07/29/21 05:51 Elliptocytes Not Reportable 07/29/21 05:51 Acanthocytes (Spur) Not Reportable 07/29/21 05:51 Rouleaux Not Reportable 07/29/21 05:51 Hemoglobin C Crystals Not Reportable 07/29/21 05:51 Schistocytes Not Reportable 07/29/21 05:51 Malaria parasites Not Reportable 07/29/21 05:51 Mike Bodies Not Reportable 07/29/21 05:51 Hem Pathologist Commnt No 07/29/21 05:51 PT 16.4 Sec. (12.2-14.9) H 07/28/21 19:23 INR 1.18 (0.87-1.13) H 07/28/21 19:23 APTT 45.8 Sec. (24.2-36.6) H 07/28/21 19:23 Sodium 139 mmol/L (137-145) 07/29/21 05:51 Potassium 5.4 mmol/L (3.6-5.0) H 07/29/21 05:51 Chloride 90.0 mmol/L (98-107) L 07/29/21 05:51 Carbon Dioxide 28 mmol/L (22-30) 07/29/21 05:51 Anion Gap 26 mmol/L 07/29/21 05:51 BUN 68 mg/dL (9-20) H 07/29/21 05:51 Creatinine 14.4 mg/dL (0.8-1.3) H 07/29/21 05:51 Estimated GFR 4 ml/min 07/29/21 05:51 BUN/Creatinine Ratio 5 % 07/29/21 05:51 Glucose 104 mg/dL (75-100) H 07/29/21 05:51 Calcium 8.5 mg/dL (8.4-10.2) 07/29/21 05:51 Total Bilirubin 2.30 mg/dL (0.1-1.2) H 07/29/21 05:51 AST 169 units/L (5-40) H 07/29/21 05:51 ALT 259 units/L (7-56) H 07/29/21 05:51 Alkaline Phosphatase 398 units/L (35-129) H 07/29/21 05:51 NT-Pro-B Natriuret Pep 59923 pg/mL (0-450) H 07/28/21 23:26 Total Protein 6.2 g/dL (6.3-8.2) L 07/29/21 05:51 Albumin 3.2 g/dL (3.9-5) L 07/29/21 05:51 Albumin/Globulin Ratio 1.1 % 07/29/21 05:51 Amylase 80 units/L (27-131) 07/28/21 10:28 Lipase 23 units/L (13-60) 07/28/21 10:28 Hepatitis A IgM Ab Non-reactive (NonReactive) 07/29/21 15:15 Hep Bs Antigen Non-reactive (Negative) 07/29/21 15:15 Hep B Core IgM Ab Non-reactive (NonReactive) 07/29/21 15:15 Hepatitis C Antibody Non-reactive (NonReactive) 07/29/21 15:15 [place]/IV: Voiding Method Toilet Active Medications - Current Medications Current Medications: Generic Name Dose Route Start Last Admin Trade Name Freq PRN Reason Stop Dose Admin Acetaminophen 650 mg 07/28/21 19:14 Acetaminophen 325 Mg Tab PO Q4H PRN Pain MILD(1-3)/Fever >100.5/MALLORY Albuterol 2.5 mg 07/28/21 19:14 Albuterol 2.5 Mg/3 Ml Nebu IH Q4HRT PRN Shortness Of Breath Amlodipine Besylate 10 mg 07/29/21 10:00 07/29/21 10:11 Amlodipine 10 Mg Tab PO 10 mg DAILY CHERELLE Administration Ergocalciferol 50,000 unit 08/04/21 10:00 Ergocalciferol (Vit D2) 50,000 Unit Cap PO Mo CHERELLE Folic Acid 1 mg 07/29/21 10:00 07/29/21 10:11 Folic Acid 1 Mg Tab PO 1 mg QDAY CHERELLE Administration Hydralazine HCl 10 mg 07/28/21 21:56 Hydralazine 20 Mg/1 Ml Inj IV Q6HR PRN htn Hydromorphone HCl 0.5 mg 07/28/21 19:14 07/28/21 22:07 Hydromorphone 0.5 Mg/0.5 Ml Inj IV 0.5 mg Q6H PRN Administration Pain , Severe (7-10) Sodium Chloride 100 mls @ 999 mls/hr 07/29/21 12:16 Nacl 0.9% IV VERNA PRN Hypotension Levetiracetam 500 mg 07/28/21 22:00 07/29/21 10:14 Levetiracetam 500 Mg Tab PO 500 mg BID CHERELLE Administration Ondansetron HCl 4 mg 07/28/21 19:14 Ondansetron 4 Mg/2 Ml Inj IV Q8H PRN Nausea And Vomiting Oxycodone/Acetaminophen 1 tab 07/28/21 19:14 Oxycodone /Acetaminophen 5-325mg Tab PO Q6H PRN Pain, Moderate (4-6) Sevelamer Carbonate 800 mg 07/29/21 08:00 07/29/21 16:47 Sevelamer Carbonate 800 Mg Tab PO Not Given TIDWM CHERELLE Sodium Chloride 10 ml 07/28/21 22:00 07/29/21 10:12 Sodium Chloride 0.9% 10 Ml Flush Syringe IV 10 ml BID CHERELLE Administration Sodium Chloride 10 ml 07/28/21 19:14 Sodium Chloride 0.9% 10 Ml Flush Syringe IV PRN PRN LINE FLUSH Nutrition/Malnutrition Assess - Dietary Evaluation Nutrition/Malnutrition Findings: Nutrition Notes Start: 07/29/21 15:43 Freq: Status: Active Protocol: Document 07/29/21 15:43 LAW (Rec: 07/29/21 15:57 LAW [id number]) Nutrition Notes Need for Assessment generated from: MD Order,rn eligibility,MST Initial or Follow up Assessment Current Diagnosis CKD (stage V CKD),Hypertension Other Pertinent Diagnosis ESRD+HD, Seizure, Abdominal Pain/N/V, Cholecystitis, Fluid Overload, Hyperk Current Diet Clear Liquids Diet (since D ). Labs/Tests 07/29: K 5.4, Cl 90.0, BUN 68, Crea 14.4, Glu 104. Pertinent Medications 07/29: Vit D2, Folic acid, others nutritionally unremarkable. 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 Weight Status Appropriate Subjective/Other Information RD consult for risk of malnutrition and dietary suplementation assessments. No reports available on Pt's PO intake of meals at the time , will assess at F/U. Pt is on Room Air, O2 saturation @ 99%, according to Physical Assessment History notes. Pt presents an unspecified area of concern foir skin risk , according to Physical Assessment History notes. Pt shows no signs of concern for risk of malnutrition at the time, according to Physical Assessment History notes. I will not prescribe dietary supplementation at this time, since there are no apparent needs for energy/protein PO compensation, will reassess at F/U. Percent of energy/protein needs met: Prescribed Clear Liquids Diet provides for energy/protein needs (590 Kcal/16 g) during LOS Burn Absent Trauma Absent GI Symptoms Other Food Allergy No Skin Integrity/Comment Unspecified area of concern. Minimum of two criteria No Fluid Accumulation Mild (non-severe) Reduced Chain Maker Strength N/A (non-severe) Protein-Calorie Malnutrition N\A #1 Nutrition Diagnosis Predicted suboptimal energy intake Etiology Cholecistitis. As Evidenced by Signs and Symptoms Abdominal pain/N/V. Is patient on ventilator? No Is Patient Ambulatory and/or Out of Bed Yes REE-([place]-St. Jeor-ambulatory/OOB) [ 1926.119 [id number]] Kcal/Kg value to use for calculation 28 Approximate Energy Requirements Using 1786 kcal/Kg Calculation Used for Recommendations Kcal/kg Additional Notes Protein: >1.2 g/Kg ABW; >77 g/ day. Fluids: 1 ml/Kcal, or as per MD. Nutrition Intervention Change Diet Order: Continue with Clear Liquids Diet as tolerated. Follow-Up By: 08/01/21 Additional Comments Continue monitoring food tolerance, %PO intake of meals , and BM.
[2021-07-29] MEDS: HYDROmorphone 0.5 MG/0.5 ML INJ IV PRN (22:11)
[2021-07-30 05:51] LABS: Hemoglobin 8.9 gm/dl (11.8-15.2); Mean Corpuscular HGB Conc 33 % (32-34); Mean Corpuscular Volume 92 fl (84-94); Red Blood Count 2.95 M/mm3 (3.65-5.03); Red Cell Distribution Width 18.2 % (13.2-15.2)
[2021-07-30 05:52] LABS: Platelet Count 93 K/mm3 (140-440)
[2021-07-30 06:18] LABS: Albumin 3.2 g/dL (3.9-5); Calcium 9.1 mg/dL (8.4-10.2)
[2021-07-30] MEDS: SEVELAMER CARBONATE 800 MG TAB PO SCH ×3 (08:00→18:05)
[2021-07-30 09:45] LABS: Basophils % (Manual) 0 % (0.0-1.8); Total Cells Counted 100
[2021-07-30 09:46] LABS: Anisocytosis Few; Hypochromasia Few; Platelet Estimate Consistent w Auto
[2021-07-30] MEDS: levETIRAcetam 500 MG TAB PO SCH ×2 (10:00→21:31)
[2021-07-30] MEDS: FOLIC ACID 1 MG TAB PO SCH (10:00)
[2021-07-30] MEDS: amLODIPine 10 MG TAB PO SCH (10:00)
--- NOTE | 2021-07-30 10:08 | Nuclear Medicine Report ---
NUCLEAR MEDICINE HEPATOBILIARY SCAN INDICATION: RUQ pain no gallstones. TECHNIQUE: Radiotracer: Tc-99m mebrofenin (by IV): 5.5 mCi. Gallbladder Stimulant: None. FINDINGS: Hepatic activity: Normal. Biliary activity: Normal. Common bile duct activity at 10 minutes. Gallbladder activity: Normal at 20 minutes. Small bowel activity: Normal at 45 minutes. IMPRESSION: No biliary obstruction. Signer Name: Christiano Khoury Jr, MD Signed: 07/30/2021 10:03 AM Workstation Name: [id number]
--- NOTE | 2021-07-30 11:31 | Progress Note ---
Assessment and Plan 46-year-old male with right upper quadrant pain and gallbladder edema and elevated liver enzymes. He remains afebrile and stable with no leukocytosis. Patient has negative MRCP and HIDA scan showing any active obstruction. Patient may have had a stone that is since passed. Discussed both surgical and nonsurgical options with the patient. At this time he elects to start a diet and see how he feels and to recheck his chemistry tomorrow. If his LFTs continue to downtrend and he feels better on a diet he may elect to not have surgery. We will continue to follow. Subjective Date of service: 07/30/21 Narrative: No acute events overnight. Patient had a HIDA scan today that was negative for any obstruction. Patient denies any nausea vomiting says that he would like something to eat. He continues to have right upper quadrant pain but is much improved compared to admission. Objective Vital Signs - 12hr 07/30/21 07/30/21 01:00 04:16 Temperature 98.3 F Pulse Rate 75 Respiratory 17 16 Rate Blood Pressure 122/79 O2 Sat by Pulse 98 97 Oximetry - General physical appearance well developed, no distress, no pain - Eyes PERRL - Respiratory normal expansion, normal respiratory effort - Abdomen soft, tender (Tender to palpation right upper quadrant), not distended - Integumentary other (Left distal forearm AV fistula) - Labs 07/30/21 05:04 07/30/21 05:04 Diabetes panel 07/30/21 Range/Units 05:04 Sodium 138 (137-145) mmol/L Potassium 4.8 (3.6-5.0) mmol/L Chloride 94.9 L (98-107) mmol/L Carbon Dioxide 28 (22-30) mmol/L BUN 38 H (9-20) mg/dL Creatinine 10.4 H (0.8-1.3) mg/dL Glucose 88 (75-100) mg/dL Calcium 9.1 (8.4-10.2) mg/dL AST 146 H (5-40) units/L ALT 244 H (7-56) units/L Alkaline Phosphatase 430 H (35-129) units/L Total Protein 6.4 (6.3-8.2) g/dL Albumin 3.2 L (3.9-5) g/dL Calcium panel 07/30/21 Range/Units 05:04 Calcium 9.1 (8.4-10.2) mg/dL Phosphorus 4.80 H (2.5-4.5) mg/dL Albumin 3.2 L (3.9-5) g/dL Pituitary panel 07/30/21 Range/Units 05:04 Sodium 138 (137-145) mmol/L Potassium 4.8 (3.6-5.0) mmol/L Chloride 94.9 L (98-107) mmol/L Carbon Dioxide 28 (22-30) mmol/L BUN 38 H (9-20) mg/dL Creatinine 10.4 H (0.8-1.3) mg/dL Glucose 88 (75-100) mg/dL Calcium 9.1 (8.4-10.2) mg/dL Adrenal panel 07/30/21 Range/Units 05:04 Sodium 138 (137-145) mmol/L Potassium 4.8 (3.6-5.0) mmol/L Chloride 94.9 L (98-107) mmol/L Carbon Dioxide 28 (22-30) mmol/L BUN 38 H (9-20) mg/dL Creatinine 10.4 H (0.8-1.3) mg/dL Glucose 88 (75-100) mg/dL Calcium 9.1 (8.4-10.2) mg/dL Total Bilirubin 2.00 H (0.1-1.2) mg/dL AST 146 H (5-40) units/L ALT 244 H (7-56) units/L Alkaline Phosphatase 430 H (35-129) units/L Total Protein 6.4 (6.3-8.2) g/dL Albumin 3.2 L (3.9-5) g/dL
--- NOTE | 2021-07-30 12:19 | Progress Note ---
Assessment and Plan ESRD - HD in am Lytes - Stable, f/u labs Abd Pain - Much improved with neg MRCP & HIDA scan, Improving LFTs. F/u Mx per GI Subjective Date of service: 07/30/21 Interval history: Feeling much better, starting po feeds today Objective - Vital Signs Vital signs: Vital Signs - 12hr 07/30/21 07/30/21 01:00 04:16 Temperature 98.3 F Pulse Rate 75 Respiratory 17 16 Rate Blood Pressure 122/79 O2 Sat by Pulse 98 97 Oximetry - General Appearance General appearance: other (Awake & alert, in no distress) EENT: PERRL, hearing intact Neck: no JVD Respiratory: Present: Clear to Ascultation Cardiology: regular, S1S2 Gastrointestinal: no tenderness, other (Soft) Neurologic: no focal deficit, alert and oriented x3 - Lab 07/30/21 05:04 07/30/21 05:04 Most recent lab results Calcium 9.1 mg/dL (8.4-10.2) 07/30/21 05:04 Phosphorus 4.80 mg/dL (2.5-4.5) H 07/30/21 05:04 Magnesium 2.00 mg/dL (1.7-2.3) 07/30/21 05:04 Medications & Allergies - Medications Allergies/Adverse Reactions: Allergies Penicillins Allergy (Verified 07/29/21 12:14) Itching Home Medications: Home Medications Medication Instructions Recorded Confirmed Last Taken Type amLODIPine 10 mg PO DAILY 03/28/18 07/29/21 07/27/21 History Ferric Citrate (Nf) [Auryxia] 630 mg PO TIDWM 07/29/21 07/29/21 07/27/21 History Hydralazine HCl 50 mg PO BID 07/29/21 07/29/21 07/27/21 History Naproxen [Naprosyn] 500 mg PO BID 07/29/21 07/29/21 07/27/21 History Sodium Zirconium Cyclosilicate 10 gm PO Q48H 07/29/21 07/29/21 07/27/21 History [Lokelma] cloNIDine [Catapres] 0.1 mg PO TID 07/29/21 07/29/21 07/27/21 History Active Medications: Generic Name Dose Route Start Last Admin Trade Name Freq PRN Reason Stop Dose Admin Acetaminophen 650 mg 07/28/21 19:14 07/29/21 22:49 Acetaminophen 325 Mg Tab PO 650 mg Q4H PRN Administration Pain MILD(1-3)/Fever >100.5/MALLORY Albuterol 2.5 mg 07/28/21 19:14 Albuterol 2.5 Mg/3 Ml Nebu IH Q4HRT PRN Shortness Of Breath Amlodipine Besylate 10 mg 07/29/21 10:00 07/29/21 10:11 Amlodipine 10 Mg Tab PO 10 mg DAILY CHERELLE Administration Ergocalciferol 50,000 unit 08/04/21 10:00 Ergocalciferol (Vit D2) 50,000 Unit Cap PO Mo CHERELLE Folic Acid 1 mg 07/29/21 10:00 07/29/21 10:11 Folic Acid 1 Mg Tab PO 1 mg QDAY CHERELLE Administration Hydralazine HCl 10 mg 07/28/21 21:56 Hydralazine 20 Mg/1 Ml Inj IV Q6HR PRN htn Hydromorphone HCl 0.5 mg 07/28/21 19:14 07/29/21 22:11 Hydromorphone 0.5 Mg/0.5 Ml Inj IV 0.5 mg Q6H PRN Administration Pain , Severe (7-10) Sodium Chloride 100 mls @ 999 mls/hr 07/29/21 12:16 Nacl 0.9% IV VERNA PRN Hypotension Levetiracetam 500 mg 07/28/21 22:00 07/29/21 22:05 Levetiracetam 500 Mg Tab PO 500 mg BID CHERELLE Administration Ondansetron HCl 4 mg 07/28/21 19:14 Ondansetron 4 Mg/2 Ml Inj IV Q8H PRN Nausea And Vomiting Oxycodone/Acetaminophen 1 tab 07/28/21 19:14 Oxycodone /Acetaminophen 5-325mg Tab PO Q6H PRN Pain, Moderate (4-6) Sevelamer Carbonate 800 mg 07/29/21 08:00 07/29/21 16:47 Sevelamer Carbonate 800 Mg Tab PO Not Given TIDWM CHERELLE Sodium Chloride 10 ml 07/28/21 22:00 07/29/21 22:06 Sodium Chloride 0.9% 10 Ml Flush Syringe IV 10 ml BID CHERELLE Administration Sodium Chloride 10 ml 07/28/21 19:14 Sodium Chloride 0.9% 10 Ml Flush Syringe IV PRN PRN LINE FLUSH
--- NOTE | 2021-07-30 15:20 | Progress Note ---
Assessment and Plan Assessment and plan: #Acute cholecystitis #Elevated transaminasesimproving #Hyperbilirubinemiaimproving Continue analgesics as needed and transition to soft GI diet per general surgery Status post MRCP (07/29/2021) unremarkable for gallstones and biliary tree. HIDA scan unremarkable for biliary obstruction. General surgery consulted; appreciate recs Due to the patient having unremarkable MRCP and HIDA scan, the patient may not require laparoscopic cholecystectomy if his biliary labs improve, pain improves, and patient can tolerate diet #Fluid overloadresolved Supportive care, dialysis as per renal team, monitor fluid balance. #ESRD (end stage renal disease) on dialysis Nephrology team consulted in ED, strict I/O, avoid nephrotoxic agents, dialysis as per renal team. #Mild protein caloric malnutrition Albumin 3.2 Starting dietary supplementation #Seizure disorder Continue antiepileptic therapy, seizure precautions. #Advanced care planning -Disease education conducted, care plan discussed, diagnoses discussed, prognosis discussed, and patient acknowledges understanding with care plan -Time: +30 min #Discharge planning - Patient is pending ability to tolerate p.o. intake and improvement of biliary labs - Case management has been made aware. - Discharge is tentatively 24-48 hours Disposition Plan: Continue medical management Total Time Spent with Patient (Minutes): 45 minutes History Interval history: No acute events overnight. Hospitalist Physical - Constitutional Vitals: Temp Pulse Resp BP Pulse Ox 98.3 F 75 16 122/79 97 07/30/21 04:16 07/30/21 04:16 07/30/21 04:16 07/30/21 04:16 07/30/21 04:16 General appearance: Present: no acute distress, well-nourished - EENT Eyes: Present: PERRL, EOM intact ENT: hearing intact, clear oral mucosa, dentition normal - Neck Neck: Present: supple, normal ROM - Respiratory Respiratory effort: normal Respiratory: bilateral: CTA - Cardiovascular Rhythm: regular Heart Sounds: Present: S1 & S2 - Extremities Extremities: no ischemia, pulses intact, pulses symmetrical, No edema, normal temperature, normal color, Full ROM, abnormal (Left upper extremity AV fistula with palpable thrill) Peripheral Pulses: within normal limits - Abdominal General gastrointestinal: soft, tender, non-distended, normal bowel sounds Localized gastrointestinal: tender: RUQ (Mild tenderness) - Integumentary Integumentary: Present: clear, warm, dry - Psychiatric Psychiatric: appropriate mood/affect, intact judgment & insight, memory intact, cooperative - Neurologic Neurologic: CNII-XII intact, moves all extremities - Allied Health Allied health notes reviewed: nursing Results - Labs CBC & Chem 7: 07/30/21 05:04 07/30/21 05:04 Labs: Laboratory Last Values WBC 4.1 K/mm3 (4.5-11.0) L 07/30/21 05:04 RBC 2.95 M/mm3 (3.65-5.03) L 07/30/21 05:04 Hgb 8.9 gm/dl (11.8-15.2) L 07/30/21 05:04 Hct 27.0 % (35.5-45.6) L 07/30/21 05:04 MCV 92 fl (84-94) 07/30/21 05:04 MCH 30 pg (28-32) 07/30/21 05:04 MCHC 33 % (32-34) 07/30/21 05:04 RDW 18.2 % (13.2-15.2) H 07/30/21 05:04 Plt Count 93 K/mm3 (140-440) L 07/30/21 05:04 Lymph % (Auto) Relocation Services Specialist 07/30/21 05:04 Nolan % (Auto) 5.7 % (0.0-7.3) 07/28/21 10:28 Eos % (Auto) 1.0 % (0.0-4.3) 07/28/21 10:28 Baso % (Auto) 1.2 % (0.0-1.8) 07/28/21 10:28 Lymph # (Auto) 0.7 K/mm3 (1.2-5.4) L 07/28/21 10:28 Nolan # (Auto) 0.1 K/mm3 (0.0-0.8) 07/28/21 10:28 Eos # (Auto) 0.0 K/mm3 (0.0-0.4) 07/28/21 10:28 Baso # (Auto) 0.0 K/mm3 (0.0-0.1) 07/28/21 10:28 Add Manual Diff Complete 07/30/21 05:04 Total Counted 100 07/30/21 05:04 Seg Neutrophils % Relocation Services Specialist 07/30/21 05:04 Seg Neuts % (Manual) 38.0 % (40.0-70.0) L 07/30/21 05:04 Band Neutrophils % 0 % 07/30/21 05:04 Lymphocytes % (Manual) 46.0 % (13.4-35.0) H 07/30/21 05:04 Reactive Lymphs % (Man) 0 % 07/30/21 05:04 Monocytes % (Manual) 9.0 % (0.0-7.3) H 07/30/21 05:04 Eosinophils % (Manual) 7.0 % (0.0-4.3) H 07/30/21 05:04 Basophils % (Manual) 0 % (0.0-1.8) 07/30/21 05:04 Metamyelocytes % 0 % 07/30/21 05:04 Myelocytes % 0 % 07/30/21 05:04 Promyelocytes % 0 % 07/30/21 05:04 Blast Cells % 0 % 07/30/21 05:04 Nucleated RBC % Not Reportable 07/30/21 05:04 Seg Neutrophils # 1.5 K/mm3 (1.8-7.7) L 07/28/21 10:28 Seg Neutrophils # Man 1.6 K/mm3 (1.8-7.7) L 07/30/21 05:04 Band Neutrophils # 0.0 K/mm3 07/30/21 05:04 Lymphocytes # (Manual) 1.9 K/mm3 (1.2-5.4) 07/30/21 05:04 Abs React Lymphs (Man) 0.0 K/mm3 07/30/21 05:04 Monocytes # (Manual) 0.4 K/mm3 (0.0-0.8) 07/30/21 05:04 Eosinophils # (Manual) 0.3 K/mm3 (0.0-0.4) 07/30/21 05:04 Basophils # (Manual) 0.0 K/mm3 (0.0-0.1) 07/30/21 05:04 Metamyelocytes # 0.0 K/mm3 07/30/21 05:04 Myelocytes # 0.0 K/mm3 07/30/21 05:04 Promyelocytes # 0.0 K/mm3 07/30/21 05:04 Blast Cells # 0.0 K/mm3 07/30/21 05:04 WBC Morphology Not Reportable 07/30/21 05:04 Hypersegmented Neuts Not Reportable 07/30/21 05:04 Hyposegmented Neuts Not Reportable 07/30/21 05:04 Hypogranular Neuts Not Reportable 07/30/21 05:04 Smudge Cells Not Reportable 07/30/21 05:04 Toxic Granulation Not Reportable 07/30/21 05:04 Toxic Vacuolation Not Reportable 07/30/21 05:04 Dohle Bodies Not Reportable 07/30/21 05:04 Pelger-Huet Anomaly Not Reportable 07/30/21 05:04 Jazmine Rods Not Reportable 07/30/21 05:04 Platelet Estimate Consistent w auto 07/30/21 05:04 Clumped Platelets Not Reportable 07/30/21 05:04 Plt Clumps, EDTA Not Reportable 07/30/21 05:04 Large Platelets Not Reportable 07/30/21 05:04 Giant Platelets Not Reportable 07/30/21 05:04 Platelet Satelliting Not Reportable 07/30/21 05:04 Plt Morphology Comment Not Reportable 07/30/21 05:04 RBC Morphology Not Reportable 07/30/21 05:04 Dimorphic RBCs Not Reportable 07/30/21 05:04 Polychromasia Not Reportable 07/30/21 05:04 Hypochromasia Few 07/30/21 05:04 Poikilocytosis Not Reportable 07/30/21 05:04 Anisocytosis Few 07/30/21 05:04 Microcytosis Not Reportable 07/30/21 05:04 Macrocytosis Not Reportable 07/30/21 05:04 Spherocytes Not Reportable 07/30/21 05:04 Pappenheimer Bodies Not Reportable 07/30/21 05:04 Sickle Cells Not Reportable 07/30/21 05:04 Target Cells Not Reportable 07/30/21 05:04 Tear Drop Cells Not Reportable 07/30/21 05:04 Ovalocytes Not Reportable 07/30/21 05:04 Helmet Cells Not Reportable 07/30/21 05:04 [place] Bodies Not Reportable 07/30/21 05:04 [place] Rings Not Reportable 07/30/21 05:04 [place] Cells Not Reportable 07/30/21 05:04 Bite Cells Not Reportable 07/30/21 05:04 Crenated Cell Not Reportable 07/30/21 05:04 Elliptocytes Not Reportable 07/30/21 05:04 Acanthocytes (Spur) Not Reportable 07/30/21 05:04 Rouleaux Not Reportable 07/30/21 05:04 Hemoglobin C Crystals Not Reportable 07/30/21 05:04 Schistocytes Not Reportable 07/30/21 05:04 Malaria parasites Not Reportable 07/30/21 05:04 Mike Bodies Not Reportable 07/30/21 05:04 Hem Pathologist Commnt No 07/30/21 05:04 PT 16.4 Sec. (12.2-14.9) H 07/28/21 19:23 INR 1.18 (0.87-1.13) H 07/28/21 19:23 APTT 45.8 Sec. (24.2-36.6) H 07/28/21 19:23 Sodium 138 mmol/L (137-145) 07/30/21 05:04 Potassium 4.8 mmol/L (3.6-5.0) 07/30/21 05:04 Chloride 94.9 mmol/L (98-107) L 07/30/21 05:04 Carbon Dioxide 28 mmol/L (22-30) 07/30/21 05:04 Anion Gap 20 mmol/L 07/30/21 05:04 BUN 38 mg/dL (9-20) H 07/30/21 05:04 Creatinine 10.4 mg/dL (0.8-1.3) H 07/30/21 05:04 Estimated GFR 5 ml/min 07/30/21 05:04 BUN/Creatinine Ratio 4 % 07/30/21 05:04 Glucose 88 mg/dL (75-100) 07/30/21 05:04 Calcium 9.1 mg/dL (8.4-10.2) 07/30/21 05:04 Phosphorus 4.80 mg/dL (2.5-4.5) H 07/30/21 05:04 Magnesium 2.00 mg/dL (1.7-2.3) 07/30/21 05:04 Total Bilirubin 2.00 mg/dL (0.1-1.2) H 07/30/21 05:04 AST 146 units/L (5-40) H 07/30/21 05:04 ALT 244 units/L (7-56) H 07/30/21 05:04 Alkaline Phosphatase 430 units/L (35-129) H 07/30/21 05:04 NT-Pro-B Natriuret Pep 38345 pg/mL (0-450) H 07/28/21 23:26 Total Protein 6.4 g/dL (6.3-8.2) 07/30/21 05:04 Albumin 3.2 g/dL (3.9-5) L 07/30/21 05:04 Albumin/Globulin Ratio 1.0 % 07/30/21 05:04 Amylase 80 units/L (27-131) 07/28/21 10:28 Lipase 23 units/L (13-60) 07/28/21 10:28 Hepatitis A IgM Ab Non-reactive (NonReactive) 07/29/21 15:15 Hep Bs Antigen Non-reactive (Negative) 07/29/21 15:15 Hep B Core IgM Ab Non-reactive (NonReactive) 07/29/21 15:15 Hepatitis C Antibody Non-reactive (NonReactive) 07/29/21 15:15 Hayden/IV: Voiding Method Toilet Active Medications - Current Medications Current Medications: Generic Name Dose Route Start Last Admin Trade Name Freq PRN Reason Stop Dose Admin Acetaminophen 650 mg 07/28/21 19:14 07/29/21 22:49 Acetaminophen 325 Mg Tab PO 650 mg Q4H PRN Administration Pain MILD(1-3)/Fever >100.5/MALLORY Albuterol 2.5 mg 07/28/21 19:14 Albuterol 2.5 Mg/3 Ml Nebu IH Q4HRT PRN Shortness Of Breath Amlodipine Besylate 10 mg 07/29/21 10:00 07/29/21 10:11 Amlodipine 10 Mg Tab PO 10 mg DAILY CHERELLE Administration Ergocalciferol 50,000 unit 08/04/21 10:00 Ergocalciferol (Vit D2) 50,000 Unit Cap PO Mo CHERELLE Folic Acid 1 mg 07/29/21 10:00 07/29/21 10:11 Folic Acid 1 Mg Tab PO 1 mg QDAY CHERELLE Administration Hydralazine HCl 10 mg 07/28/21 21:56 Hydralazine 20 Mg/1 Ml Inj IV Q6HR PRN htn Hydromorphone HCl 0.5 mg 07/28/21 19:14 07/29/21 22:11 Hydromorphone 0.5 Mg/0.5 Ml Inj IV 0.5 mg Q6H PRN Administration Pain , Severe (7-10) Sodium Chloride 100 mls @ 999 mls/hr 07/29/21 12:16 Nacl 0.9% IV VERNA PRN Hypotension Levetiracetam 500 mg 07/28/21 22:00 07/29/21 22:05 Levetiracetam 500 Mg Tab PO 500 mg BID CHERELLE Administration Ondansetron HCl 4 mg 07/28/21 19:14 Ondansetron 4 Mg/2 Ml Inj IV Q8H PRN Nausea And Vomiting Oxycodone/Acetaminophen 1 tab 07/28/21 19:14 Oxycodone /Acetaminophen 5-325mg Tab PO Q6H PRN Pain, Moderate (4-6) Sevelamer Carbonate 800 mg 07/29/21 08:00 07/29/21 16:47 Sevelamer Carbonate 800 Mg Tab PO Not Given TIDWM CHERELLE Sodium Chloride 10 ml 07/28/21 22:00 07/29/21 22:06 Sodium Chloride 0.9% 10 Ml Flush Syringe IV 10 ml BID CHERELLE Administration Sodium Chloride 10 ml 07/28/21 19:14 Sodium Chloride 0.9% 10 Ml Flush Syringe IV PRN PRN LINE FLUSH Nutrition/Malnutrition Assess - Dietary Evaluation Nutrition/Malnutrition Findings: Nutrition Notes Start: 07/29/21 15:43 Freq: Status: Active Protocol: Document 07/29/21 15:43 LAW (Rec: 07/29/21 15:57 LAW [id number]) Nutrition Notes Need for Assessment generated from: MD Order,stitcher special machine,MST Initial or Follow up Assessment Current Diagnosis CKD (stage V CKD),Hypertension Other Pertinent Diagnosis ESRD+HD, Seizure, Abdominal Pain/N/V, Cholecystitis, Fluid Overload, Hyperk Current Diet Clear Liquids Diet (since D ). Labs/Tests 07/29: K 5.4, Cl 90.0, BUN 68, Crea 14.4, Glu 104. Pertinent Medications 07/29: Vit D2, Folic acid, others nutritionally unremarkable. 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 Weight Status Appropriate Subjective/Other Information RD consult for risk of malnutrition and dietary suplementation assessments. No reports available on Pt's PO intake of meals at the time , will assess at F/U. Pt is on Room Air, O2 saturation @ 99%, according to Physical Assessment History notes. Pt presents an unspecified area of concern foir skin risk , according to Physical Assessment History notes. Pt shows no signs of concern for risk of malnutrition at the time, according to Physical Assessment History notes. I will not prescribe dietary supplementation at this time, since there are no apparent needs for energy/protein PO compensation, will reassess at F/U. Percent of energy/protein needs met: Prescribed Clear Liquids Diet provides for energy/protein needs (590 Kcal/16 g) during LOS Burn Absent Trauma Absent GI Symptoms Other Food Allergy No Skin Integrity/Comment Unspecified area of concern. Minimum of two criteria No Fluid Accumulation Mild (non-severe) Reduced Toppiece Cutter Strength N/A (non-severe) Protein-Calorie Malnutrition N\A #1 Nutrition Diagnosis Predicted suboptimal energy intake Etiology Cholecistitis. As Evidenced by Signs and Symptoms Abdominal pain/N/V. Is patient on ventilator? No Is Patient Ambulatory and/or Out of Bed Yes REE-([place]-ambulatory/OOB) [ 1926.119 [id number]] Kcal/Kg value to use for calculation 28 Approximate Energy Requirements Using 1786 kcal/Kg Calculation Used for Recommendations Kcal/kg Additional Notes Protein: >1.2 g/Kg ABW; >77 g/ day. Fluids: 1 ml/Kcal, or as per MD. Nutrition Intervention Change Diet Order: Continue with Clear Liquids Diet as tolerated. Follow-Up By: 08/01/21 Additional Comments Continue monitoring food tolerance, %PO intake of meals , and BM.
[2021-07-31 06:34] LABS: Hematocrit 25.7 % (35.5-45.6); Hemoglobin 8.4 gm/dl (11.8-15.2); Mean Corpuscular HGB Conc 33 % (32-34); Mean Corpuscular Volume 92 fl (84-94); Platelet Count 105 K/mm3 (140-440); Red Blood Count 2.79 M/mm3 (3.65-5.03); Red Cell Distribution Width 18.6 % (13.2-15.2)
[2021-07-31 07:33] LABS: Albumin 3.4 g/dL (3.9-5); Calcium 9.1 mg/dL (8.4-10.2)
[2021-07-31] MEDS ORDERED: SODIUM CHLORIDE 0.9% 100 ML IV PRN (08:56)
[2021-07-31] MEDS: SEVELAMER CARBONATE 800 MG TAB PO SCH ×3 (09:18→16:45)
[2021-07-31 09:38] LABS: Hypochromasia 1+; Platelet Estimate Consistent w Auto; Total Cells Counted 100
--- NOTE | 2021-07-31 12:30 | Progress Note ---
Assessment and Plan ESRD - HD today Lytes - Stable, f/u labs Abd Pain - Much improved with neg MRCP & HIDA scan, Improving LFTs. F/u Mx per GI Subjective Date of service: 07/31/21 Interval history: No new complaint Objective - Vital Signs Vital signs: Vital Signs - 12hr 07/31/21 07/31/21 07/31/21 01:00 10:20 10:30 Temperature 97.2 F L Pulse Rate 76 74 Respiratory 16 20 Rate Blood Pressure 147/80 157/95 O2 Sat by Pulse 98 Oximetry O2 Sat by Pulse 100 Oximetry [ Posterior Throughout] 07/31/21 07/31/21 07/31/21 10:45 11:00 11:15 Temperature Pulse Rate 66 71 73 Respiratory Rate Blood Pressure 167/97 168/97 174/100 O2 Sat by Pulse Oximetry O2 Sat by Pulse Oximetry [ Posterior Throughout] 07/31/21 11:30 Temperature Pulse Rate 75 Respiratory Rate Blood Pressure 167/101 O2 Sat by Pulse Oximetry O2 Sat by Pulse Oximetry [ Posterior Throughout] - General Appearance General appearance: well-developed, other EENT: PERRL Neck: no JVD Respiratory: Present: Clear to Ascultation Cardiology: regular, S1S2 Gastrointestinal: normal Neurologic: no focal deficit, alert and oriented x3 - Lab 07/31/21 05:59 07/31/21 05:59 Most recent lab results Calcium 9.1 mg/dL (8.4-10.2) 07/31/21 05:59 Phosphorus 4.80 mg/dL (2.5-4.5) H 07/30/21 05:04 Magnesium 2.00 mg/dL (1.7-2.3) 07/30/21 05:04 Medications & Allergies - Medications Allergies/Adverse Reactions: Allergies Penicillins Allergy (Verified 07/29/21 12:14) Itching Home Medications: Home Medications Medication Instructions Recorded Confirmed Last Taken Type amLODIPine 10 mg PO DAILY 03/28/18 07/29/21 07/27/21 History Ferric Citrate (Nf) [Auryxia] 630 mg PO TIDWM 07/29/21 07/29/21 07/27/21 History Hydralazine HCl 50 mg PO BID 07/29/21 07/29/21 07/27/21 History Naproxen [Naprosyn] 500 mg PO BID 07/29/21 07/29/21 07/27/21 History Sodium Zirconium Cyclosilicate 10 gm PO Q48H 07/29/21 07/29/21 07/27/21 History [Lokelma] cloNIDine [Catapres] 0.1 mg PO TID 07/29/21 07/29/21 07/27/21 History Active Medications: Generic Name Dose Route Start Last Admin Trade Name Freq PRN Reason Stop Dose Admin Acetaminophen 650 mg 07/28/21 19:14 07/29/21 22:49 Acetaminophen 325 Mg Tab PO 650 mg Q4H PRN Administration Pain MILD(1-3)/Fever >100.5/MALLORY Albuterol 2.5 mg 07/28/21 19:14 Albuterol 2.5 Mg/3 Ml Nebu IH Q4HRT PRN Shortness Of Breath Amlodipine Besylate 10 mg 07/29/21 10:00 07/30/21 10:00 Amlodipine 10 Mg Tab PO Not Given DAILY CHERELLE Ergocalciferol 50,000 unit 08/04/21 10:00 Ergocalciferol (Vit D2) 50,000 Unit Cap PO Mo CHERELLE Folic Acid 1 mg 07/29/21 10:00 07/30/21 10:00 Folic Acid 1 Mg Tab PO Not Given QDAY CHERELLE Hydralazine HCl 10 mg 07/28/21 21:56 Hydralazine 20 Mg/1 Ml Inj IV Q6HR PRN htn Hydromorphone HCl 0.5 mg 07/28/21 19:14 07/29/21 22:11 Hydromorphone 0.5 Mg/0.5 Ml Inj IV 0.5 mg Q6H PRN Administration Pain , Severe (7-10) Sodium Chloride 100 mls @ 999 mls/hr 07/31/21 08:56 Nacl 0.9% IV VERNA PRN Hypotension Levetiracetam 500 mg 07/28/21 22:00 07/30/21 21:31 Levetiracetam 500 Mg Tab PO Not Given BID CHERELLE Ondansetron HCl 4 mg 07/28/21 19:14 Ondansetron 4 Mg/2 Ml Inj IV Q8H PRN Nausea And Vomiting Oxycodone/Acetaminophen 1 tab 07/28/21 19:14 Oxycodone /Acetaminophen 5-325mg Tab PO Q6H PRN Pain, Moderate (4-6) Sevelamer Carbonate 800 mg 07/29/21 08:00 07/31/21 09:18 Sevelamer Carbonate 800 Mg Tab PO 800 mg TIDWM CHERELLE Administration Sodium Chloride 10 ml 07/28/21 22:00 07/31/21 09:19 Sodium Chloride 0.9% 10 Ml Flush Syringe IV 10 ml BID CHERELLE Administration Sodium Chloride 10 ml 07/28/21 19:14 Sodium Chloride 0.9% 10 Ml Flush Syringe IV PRN PRN LINE FLUSH
[2021-07-31] MEDS: FOLIC ACID 1 MG TAB PO SCH (15:48)
[2021-07-31] MEDS: amLODIPine 10 MG TAB PO SCH (15:49)
[2021-07-31] MEDS: levETIRAcetam 500 MG TAB PO SCH ×2 (15:50→22:31)
--- NOTE | 2021-07-31 16:04 | Event Note ---
Date: 07/31/21 Went to evaluate patient earlier today however he was at dialysis. Reviewed labs and his bilirubin is slowly trending down however his alk phos is increasing. A call the patient later on after his dialysis he said that he is feeling a little bit better denies any nausea or vomiting. I discussed with him that due to his elevation in alkaline phosphatase I believe it is a good idea to do a laparoscopic cholecystectomy with intraoperative cholangiogram to look for any stones that may be radial translucent in his duct. Patient expressed und erstanding and will sign consent form in the morning. Will make n.p.o. after midnight.
--- NOTE | 2021-07-31 17:18 | Progress Note ---
Assessment and Plan Assessment and plan: #Acute cholecystitis #Elevated transaminasesimproving #Hyperbilirubinemiaimproving Continue analgesics as needed and transition to soft GI diet per general surgery Status post MRCP (07/29/2021) unremarkable for gallstones and biliary tree. HIDA scan unremarkable for biliary obstruction. General surgery consulted; appreciate recs Patient continues to have uptrending alkaline phosphatase. General surgery recommending laparoscopic cholecystectomy with intraoperative cholangiogram to assess for radiolucent stones. Patient has consented. Patient will be n.p.o. at midnight for pending procedure tomorrow. #Fluid overloadresolved Supportive care, dialysis as per renal team, monitor fluid balance. #ESRD (end stage renal disease) on dialysis Nephrology team consulted in ED, strict I/O, avoid nephrotoxic agents, dialysis as per renal team. #Mild protein caloric malnutrition Albumin 3.2 Starting dietary supplementation #Seizure disorder Continue antiepileptic therapy, seizure precautions. #Advanced care planning -Disease education conducted, care plan discussed, diagnoses discussed, prognosis discussed, and patient acknowledges understanding with care plan -Time: +30 min #Discharge planning - Patient is pending ability to tolerate p.o. intake and improvement of biliary labs - Case management has been made aware. - Discharge is tentatively 24-48 hours Disposition Plan: Continue medical management Total Time Spent with Patient (Minutes): 45 minutes History Interval history: No acute events overnight. Hospitalist Physical - Constitutional Vitals: Temp Pulse Resp BP Pulse Ox 98.5 F 84 18 167/111 98 07/31/21 15:48 07/31/21 15:49 07/31/21 15:48 07/31/21 15:49 07/31/21 15:48 General appearance: Present: no acute distress, well-nourished - EENT Eyes: Present: PERRL, EOM intact ENT: hearing intact, clear oral mucosa, dentition normal - Neck Neck: Present: supple, normal ROM - Respiratory Respiratory effort: normal Respiratory: bilateral: CTA - Cardiovascular Rhythm: regular Heart Sounds: Present: S1 & S2 - Extremities Extremities: no ischemia, pulses intact, pulses symmetrical, No edema, normal temperature, normal color, Full ROM, abnormal (Left upper extremity fistula with palpable thrill) Peripheral Pulses: within normal limits - Abdominal General gastrointestinal: soft, non-tender, non-distended, normal bowel sounds - Integumentary Integumentary: Present: clear, warm, dry - Psychiatric Psychiatric: appropriate mood/affect, intact judgment & insight, memory intact, cooperative - Neurologic Neurologic: CNII-XII intact, moves all extremities - Allied Health Allied health notes reviewed: nursing Results - Labs CBC & Chem 7: 07/31/21 05:59 07/31/21 05:59 Labs: Laboratory Last Values WBC 6.0 K/mm3 (4.5-11.0) 07/31/21 05:59 RBC 2.79 M/mm3 (3.65-5.03) L 07/31/21 05:59 Hgb 8.4 gm/dl (11.8-15.2) L 07/31/21 05:59 Hct 25.7 % (35.5-45.6) L 07/31/21 05:59 MCV 92 fl (84-94) 07/31/21 05:59 MCH 30 pg (28-32) 07/31/21 05:59 MCHC 33 % (32-34) 07/31/21 05:59 RDW 18.6 % (13.2-15.2) H 07/31/21 05:59 Plt Count 105 K/mm3 (140-440) L 07/31/21 05:59 Lymph % (Auto) [employer] 07/31/21 05:59 Menard % (Auto) 5.7 % (0.0-7.3) 07/28/21 10:28 Eos % (Auto) 1.0 % (0.0-4.3) 07/28/21 10:28 Baso % (Auto) 1.2 % (0.0-1.8) 07/28/21 10:28 Lymph # (Auto) 0.7 K/mm3 (1.2-5.4) L 07/28/21 10:28 Menard # (Auto) 0.1 K/mm3 (0.0-0.8) 07/28/21 10:28 Eos # (Auto) 0.0 K/mm3 (0.0-0.4) 07/28/21 10:28 Baso # (Auto) 0.0 K/mm3 (0.0-0.1) 07/28/21 10:28 Add Manual Diff Complete 07/31/21 05:59 Total Counted 100 07/31/21 05:59 Seg Neutrophils % [employer] 07/31/21 05:59 Seg Neuts % (Manual) 38.0 % (40.0-70.0) L 07/31/21 05:59 Band Neutrophils % 0 % 07/31/21 05:59 Lymphocytes % (Manual) 45.0 % (13.4-35.0) H 07/31/21 05:59 Reactive Lymphs % (Man) 0 % 07/31/21 05:59 Monocytes % (Manual) 9.0 % (0.0-7.3) H 07/31/21 05:59 Eosinophils % (Manual) 7.0 % (0.0-4.3) H 07/31/21 05:59 Basophils % (Manual) 1.0 % (0.0-1.8) 07/31/21 05:59 Metamyelocytes % 0 % 07/31/21 05:59 Myelocytes % 0 % 07/31/21 05:59 Promyelocytes % 0 % 07/31/21 05:59 Blast Cells % 0 % 07/31/21 05:59 Nucleated RBC % Not Reportable 07/31/21 05:59 Seg Neutrophils # 1.5 K/mm3 (1.8-7.7) L 07/28/21 10:28 Seg Neutrophils # Man 2.3 K/mm3 (1.8-7.7) 07/31/21 05:59 Band Neutrophils # 0.0 K/mm3 07/31/21 05:59 Lymphocytes # (Manual) 2.7 K/mm3 (1.2-5.4) 07/31/21 05:59 Abs React Lymphs (Man) 0.0 K/mm3 07/31/21 05:59 Monocytes # (Manual) 0.5 K/mm3 (0.0-0.8) 07/31/21 05:59 Eosinophils # (Manual) 0.4 K/mm3 (0.0-0.4) 07/31/21 05:59 Basophils # (Manual) 0.1 K/mm3 (0.0-0.1) 07/31/21 05:59 Metamyelocytes # 0.0 K/mm3 07/31/21 05:59 Myelocytes # 0.0 K/mm3 07/31/21 05:59 Promyelocytes # 0.0 K/mm3 07/31/21 05:59 Blast Cells # 0.0 K/mm3 07/31/21 05:59 WBC Morphology Not Reportable 07/31/21 05:59 Hypersegmented Neuts Not Reportable 07/31/21 05:59 Hyposegmented Neuts Not Reportable 07/31/21 05:59 Hypogranular Neuts Not Reportable 07/31/21 05:59 Smudge Cells Not Reportable 07/31/21 05:59 Toxic Granulation Not Reportable 07/31/21 05:59 Toxic Vacuolation Not Reportable 07/31/21 05:59 Dohle Bodies Not Reportable 07/31/21 05:59 Pelger-Huet Anomaly Not Reportable 07/31/21 05:59 Jazmine Rods Not Reportable 07/31/21 05:59 Platelet Estimate Consistent w auto 07/31/21 05:59 Clumped Platelets Not Reportable 07/31/21 05:59 Plt Clumps, EDTA Not Reportable 07/31/21 05:59 Large Platelets Not Reportable 07/31/21 05:59 Giant Platelets Not Reportable 07/31/21 05:59 Platelet Satelliting Not Reportable 07/31/21 05:59 Plt Morphology Comment Not Reportable 07/31/21 05:59 RBC Morphology Not Reportable 07/31/21 05:59 Dimorphic RBCs Not Reportable 07/31/21 05:59 Polychromasia Not Reportable 07/31/21 05:59 Hypochromasia 1+ 07/31/21 05:59 Poikilocytosis Not Reportable 07/31/21 05:59 Anisocytosis Not Reportable 07/31/21 05:59 Microcytosis Not Reportable 07/31/21 05:59 Macrocytosis Not Reportable 07/31/21 05:59 Spherocytes Not Reportable 07/31/21 05:59 Pappenheimer Bodies Not Reportable 07/31/21 05:59 Sickle Cells Not Reportable 07/31/21 05:59 Target Cells Not Reportable 07/31/21 05:59 Tear Drop Cells Not Reportable 07/31/21 05:59 Ovalocytes Not Reportable 07/31/21 05:59 Helmet Cells Not Reportable 07/31/21 05:59 [place] Bodies Not Reportable 07/31/21 05:59 [place] Rings Not Reportable 07/31/21 05:59 Aj Cells Not Reportable 07/31/21 05:59 Bite Cells Not Reportable 07/31/21 05:59 Crenated Cell Not Reportable 07/31/21 05:59 Elliptocytes Not Reportable 07/31/21 05:59 Acanthocytes (Spur) Not Reportable 07/31/21 05:59 Rouleaux Not Reportable 07/31/21 05:59 Hemoglobin C Crystals Not Reportable 07/31/21 05:59 Schistocytes Not Reportable 07/31/21 05:59 Malaria parasites Not Reportable 07/31/21 05:59 Mike Bodies Not Reportable 07/31/21 05:59 Hem Pathologist Commnt No 07/31/21 05:59 PT 16.4 Sec. (12.2-14.9) H 07/28/21 19:23 INR 1.18 (0.87-1.13) H 07/28/21 19:23 APTT 45.8 Sec. (24.2-36.6) H 07/28/21 19:23 Sodium 139 mmol/L (137-145) 07/31/21 05:59 Potassium 4.6 mmol/L (3.6-5.0) 07/31/21 05:59 Chloride 93.7 mmol/L (98-107) L 07/31/21 05:59 Carbon Dioxide 29 mmol/L (22-30) 07/31/21 05:59 Anion Gap 21 mmol/L 07/31/21 05:59 BUN 56 mg/dL (9-20) H 07/31/21 05:59 Creatinine 13.5 mg/dL (0.8-1.3) H 07/31/21 05:59 Estimated GFR 4 ml/min 07/31/21 05:59 BUN/Creatinine Ratio 4 % 07/31/21 05:59 Glucose 111 mg/dL (75-100) H 07/31/21 05:59 Calcium 9.1 mg/dL (8.4-10.2) 07/31/21 05:59 Phosphorus 4.80 mg/dL (2.5-4.5) H 07/30/21 05:04 Magnesium 2.00 mg/dL (1.7-2.3) 07/30/21 05:04 Total Bilirubin 1.90 mg/dL (0.1-1.2) H 07/31/21 05:59 AST 201 units/L (5-40) H 07/31/21 05:59 ALT 232 units/L (7-56) H 07/31/21 05:59 Alkaline Phosphatase 601 units/L (35-129) H 07/31/21 05:59 NT-Pro-B Natriuret Pep 51677 pg/mL (0-450) H 07/28/21 23:26 Total Protein 6.3 g/dL (6.3-8.2) 07/31/21 05:59 Albumin 3.4 g/dL (3.9-5) L 07/31/21 05:59 Albumin/Globulin Ratio 1.2 % 07/31/21 05:59 Amylase 80 units/L (27-131) 07/28/21 10:28 Lipase 23 units/L (13-60) 07/28/21 10:28 Hepatitis A IgM Ab Non-reactive (NonReactive) 07/29/21 15:15 Hep Bs Antigen Non-reactive (Negative) 07/29/21 15:15 Hep B Core IgM Ab Non-reactive (NonReactive) 07/29/21 15:15 Hepatitis C Antibody Non-reactive (NonReactive) 07/29/21 15:15 Hayden/IV: Voiding Method Toilet Active Medications - Current Medications Current Medications: Generic Name Dose Route Start Last Admin Trade Name Freq PRN Reason Stop Dose Admin Acetaminophen 650 mg 07/28/21 19:14 07/29/21 22:49 Acetaminophen 325 Mg Tab PO 650 mg Q4H PRN Administration Pain MILD(1-3)/Fever >100.5/MALLORY Albuterol 2.5 mg 07/28/21 19:14 Albuterol 2.5 Mg/3 Ml Nebu IH Q4HRT PRN Shortness Of Breath Amlodipine Besylate 10 mg 07/29/21 10:00 07/31/21 15:49 Amlodipine 10 Mg Tab PO 10 mg DAILY CHERELLE Administration Ergocalciferol 50,000 unit 08/04/21 10:00 Ergocalciferol (Vit D2) 50,000 Unit Cap PO Mo CHERELLE Folic Acid 1 mg 07/29/21 10:00 07/31/21 15:48 Folic Acid 1 Mg Tab PO 1 mg QDAY CHERELLE Administration Hydralazine HCl 10 mg 07/28/21 21:56 Hydralazine 20 Mg/1 Ml Inj IV Q6HR PRN htn Hydromorphone HCl 0.5 mg 07/28/21 19:14 07/29/21 22:11 Hydromorphone 0.5 Mg/0.5 Ml Inj IV 0.5 mg Q6H PRN Administration Pain , Severe (7-10) Sodium Chloride 100 mls @ 999 mls/hr 07/31/21 08:56 Nacl 0.9% IV VERNA PRN Hypotension Levetiracetam 500 mg 07/28/21 22:00 07/31/21 15:50 Levetiracetam 500 Mg Tab PO Not Given BID CHERELLE Ondansetron HCl 4 mg 07/28/21 19:14 Ondansetron 4 Mg/2 Ml Inj IV Q8H PRN Nausea And Vomiting Oxycodone/Acetaminophen 1 tab 07/28/21 19:14 Oxycodone /Acetaminophen 5-325mg Tab PO Q6H PRN Pain, Moderate (4-6) Sevelamer Carbonate 800 mg 07/29/21 08:00 07/31/21 16:45 Sevelamer Carbonate 800 Mg Tab PO 800 mg TIDWM CHERELLE Administration Sodium Chloride 10 ml 07/28/21 22:00 07/31/21 09:19 Sodium Chloride 0.9% 10 Ml Flush Syringe IV 10 ml BID CHERELLE Administration Sodium Chloride 10 ml 07/28/21 19:14 Sodium Chloride 0.9% 10 Ml Flush Syringe IV PRN PRN LINE FLUSH Nutrition/Malnutrition Assess - Dietary Evaluation Nutrition/Malnutrition Findings: Nutrition Notes Start: 07/29/21 15:43 Freq: Status: Active Protocol: Document 07/29/21 15:43 LAW (Rec: 07/29/21 15:57 LAW [id number]) Nutrition Notes Need for Assessment generated from: MD Order,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 Labs/Tests 07/29: K 5.4, Cl 90.0, BUN 68, Crea 14.4, Glu 104. Pertinent Medications 07/29: Vit D2, Folic acid, others nutritionally unremarkable. 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 Weight Status Appropriate Subjective/Other Information RD consult for risk of malnutrition and dietary suplementation assessments. No reports available on Pt's PO intake of meals at the time , will assess at F/U. Pt is on Room Air, O2 saturation @ 99%, according to Physical Assessment History notes. Pt presents an unspecified area of concern foir skin risk , according to Physical Assessment History notes. Pt shows no signs of concern for risk of malnutrition at the time, according to Physical Assessment History notes. I will not prescribe dietary supplementation at this time, since there are no apparent needs for energy/protein PO compensation, will reassess at F/U. Percent of energy/protein needs met: Prescribed Clear Liquids Diet provides for energy/protein needs (590 Kcal/16 g) during LOS Burn Absent Trauma Absent GI Symptoms Other Food Allergy No Skin Integrity/Comment Unspecified area of concern. Minimum of two criteria No Fluid Accumulation Mild (non-severe) Reduced Activity Assistant Strength N/A (non-severe) Protein-Calorie Malnutrition N\A #1 Nutrition Diagnosis Predicted suboptimal energy intake Etiology Cholecistitis. As Evidenced by Signs and Symptoms Abdominal pain/N/V. Is patient on ventilator? No Is Patient Ambulatory and/or Out of Bed Yes REE-([facility]-ambulatory/OOB) [ 1926.119 [id number]] Kcal/Kg value to use for calculation 28 Approximate Energy Requirements Using 1786 kcal/Kg Calculation Used for Recommendations Kcal/kg Additional Notes Protein: >1.2 g/Kg ABW; >77 g/ day. Fluids: 1 ml/Kcal, or as per MD. Nutrition Intervention Change Diet Order: Continue with Clear Liquids Diet as tolerated. Follow-Up By: 08/01/21 Additional Comments Continue monitoring food tolerance, %PO intake of meals , and BM.
[2021-07-31] MEDS: ZOLPIDEM 5 MG TAB PO PRN (22:34)
[2021-07-31] MEDS: hydrALAZINE 25 MG TAB PO SCH (22:34)
[2021-08-01 05:28] LABS: Albumin 3.7 g/dL (3.9-5); Calcium 9.6 mg/dL (8.4-10.2)
[2021-08-01] MEDS: hydrALAZINE 25 MG TAB PO SCH ×3 (05:42→21:45)
[2021-08-01] MEDS: HYDROmorphone 0.5 MG/0.5 ML INJ IV PRN ×2 (08:51→19:46)
[2021-08-01] MEDS: amLODIPine 10 MG TAB PO SCH (09:43)
[2021-08-01] MEDS: FOLIC ACID 1 MG TAB PO SCH (09:44)
[2021-08-01] MEDS: SEVELAMER CARBONATE 800 MG TAB PO SCH ×3 (09:44→18:08)
[2021-08-01] MEDS: levETIRAcetam 500 MG TAB PO SCH ×2 (09:46→21:48)
[2021-08-01] MEDS ORDERED: SODIUM CHLORIDE 0.9% 100 ML IV PRN (11:39)
--- NOTE | 2021-08-01 11:41 | Progress Note ---
Assessment and Plan ESRD - HD in am Lytes - Stable, f/u labs HTN - Optimize control, adjust meds Abd Pain - Pt for Cholecystectomy today. F/u per GI & Surgery Subjective Date of service: 08/01/21 Interval history: Pt for GI surgery today Objective - Vital Signs Vital signs: Vital Signs - 12hr 08/01/21 08/01/21 08/01/21 03:36 05:40 05:42 Temperature 98.2 F Pulse Rate 79 88 Respiratory 18 Rate Blood Pressure 190/109 156/94 159/94 Blood Pressure [Left] O2 Sat by Pulse 99 Oximetry 08/01/21 08/01/21 08/01/21 05:43 08:45 09:43 Temperature Pulse Rate 88 Respiratory Rate Blood Pressure 169/101 Blood Pressure 159/98 [Left] O2 Sat by Pulse 98 Oximetry - General Appearance General appearance: other (In no distress) EENT: PERRL, hearing intact Neck: no JVD, supple Respiratory: Present: Clear to Ascultation Cardiology: regular, S1S2 Gastrointestinal: no tenderness, other (Soft) Neurologic: no focal deficit - Lab 07/31/21 05:59 08/01/21 04:52 Most recent lab results Calcium 9.6 mg/dL (8.4-10.2) 08/01/21 04:52 Phosphorus 3.50 mg/dL (2.5-4.5) 08/01/21 04:52 Magnesium 2.20 mg/dL (1.7-2.3) 08/01/21 04:52 Medications & Allergies - Medications Allergies/Adverse Reactions: Allergies Penicillins Allergy (Verified 07/29/21 12:14) Itching Home Medications: Home Medications Medication Instructions Recorded Confirmed Last Taken Type amLODIPine 10 mg PO DAILY 03/28/18 07/29/21 07/27/21 History Ferric Citrate (Nf) [Auryxia] 630 mg PO TIDWM 07/29/21 07/29/21 07/27/21 History Hydralazine HCl 50 mg PO BID 07/29/21 07/29/21 07/27/21 History Naproxen [Naprosyn] 500 mg PO BID 07/29/21 07/29/21 07/27/21 History Sodium Zirconium Cyclosilicate 10 gm PO Q48H 07/29/21 07/29/21 07/27/21 History [Lokelma] cloNIDine [Catapres] 0.1 mg PO TID 07/29/21 07/29/21 07/27/21 History Active Medications: Generic Name Dose Route Start Last Admin Trade Name Freq PRN Reason Stop Dose Admin Acetaminophen 650 mg 07/28/21 19:14 07/29/21 22:49 Acetaminophen 325 Mg Tab PO 650 mg Q4H PRN Administration Pain MILD(1-3)/Fever >100.5/MALLORY Albuterol 2.5 mg 07/28/21 19:14 Albuterol 2.5 Mg/3 Ml Nebu IH Q4HRT PRN Shortness Of Breath Amlodipine Besylate 10 mg 07/29/21 10:00 08/01/21 09:43 Amlodipine 10 Mg Tab PO 10 mg DAILY CHERELLE Administration Ergocalciferol 50,000 unit 08/04/21 10:00 Ergocalciferol (Vit D2) 50,000 Unit Cap PO Mo CHERELLE Folic Acid 1 mg 07/29/21 10:00 08/01/21 09:44 Folic Acid 1 Mg Tab PO Not Given QDAY CHERELLE Hydralazine HCl 10 mg 07/28/21 21:56 08/01/21 03:45 Hydralazine 20 Mg/1 Ml Inj IV 10 mg Q6HR PRN Administration htn Hydralazine HCl 50 mg 07/31/21 22:01 08/01/21 05:42 Hydralazine 25 Mg Tab PO 50 mg Q8HR CHERELLE Administration Hydromorphone HCl 0.5 mg 07/28/21 19:14 08/01/21 08:51 Hydromorphone 0.5 Mg/0.5 Ml Inj IV 0.5 mg Q6H PRN Administration Pain , Severe (7-10) Sodium Chloride 100 mls @ 999 mls/hr 07/31/21 08:56 Nacl 0.9% IV VERNA PRN Hypotension Levetiracetam 500 mg 07/28/21 22:00 08/01/21 09:46 Levetiracetam 500 Mg Tab PO Not Given BID CHERELLE Ondansetron HCl 4 mg 07/28/21 19:14 Ondansetron 4 Mg/2 Ml Inj IV Q8H PRN Nausea And Vomiting Oxycodone/Acetaminophen 1 tab 07/28/21 19:14 Oxycodone /Acetaminophen 5-325mg Tab PO Q6H PRN Pain, Moderate (4-6) Sevelamer Carbonate 800 mg 07/29/21 08:00 08/01/21 09:44 Sevelamer Carbonate 800 Mg Tab PO Not Given TIDWM CHERELLE Sodium Chloride 10 ml 07/28/21 22:00 08/01/21 09:47 Sodium Chloride 0.9% 10 Ml Flush Syringe IV 10 ml BID CHERELLE Administration Sodium Chloride 10 ml 07/28/21 19:14 Sodium Chloride 0.9% 10 Ml Flush Syringe IV PRN PRN LINE FLUSH Zolpidem Tartrate 5 mg 07/31/21 22:02 07/31/21 22:34 Zolpidem 5 Mg Tab PO 5 mg QHS PRN Administration Sleep
[2021-08-01] MEDS ORDERED: SODIUM CHLORIDE 0.9% 1000 ML 1,000 ML ONE (12:07)
[2021-08-01] MEDS ORDERED: HYDROmorphone 0.5 MG/0.5 ML INJ IV PRN ×2 (12:14)
[2021-08-01] MEDS ORDERED: ONDANSETRON 4 MG/2 ML INJ IV PRN (12:14)
[2021-08-01] MEDS ORDERED: SODIUM CHLORIDE 0.9% 1000 ML 1,000 ML IV SCH (12:15)
--- NOTE | 2021-08-01 12:17 | Anesthesia Day of Surgery ---
Anesthesia Day of Surgery - Day of Surgery Patient Examined: Yes Patient H&P Reviewed: Yes Patient is NPO: Yes
--- NOTE | 2021-08-01 12:18 | Anesthesia Consultation ---
Anesthesia Consult and Med Hx Date of service: 08/01/21 - Airway Anesthetic Teeth Evaluation: Good ROM Head & Neck: Adequate Mental/Hyoid Distance: Adequate Mallampati Class: Class II Intubation Access Assessment: Good - Pre-Operative Health Status ASA Pre-Surgery Classification: ASA3 Proposed Anesthetic Plan: General - Pulmonary Hx Smoking: No Hx Asthma: No COPD: No Hx Pneumonia: No Hx Sleep Apnea: No - Cardiovascular System Hx Hypertension: Yes - Central Nervous System Hx Seizures: Yes (Last two years ago) Hx Psychiatric Problems: No - Gastrointestinal Hx Gastroesophageal Reflux Disease: No - Endocrine Hx Renal Disease: Yes (Dialysis Wed-) Hx End Stage Renal Disease: Yes (Last HD yesterday) Hx Non-Insulin Dependent Diabetes: No - Other Systems Hx Obesity: No
[2021-08-01] MEDS ORDERED: LIDOCAINE MPF (2%) 20 MG/1 ML VIAL 5 ML ONE (12:47)
[2021-08-01] MEDS ORDERED: ROCURONIUM 50 MG/5 ML INJ IV ONE (12:47)
[2021-08-01] MEDS ORDERED: fentaNYL 100 MCG/2 ML INJ ONE (12:48)
[2021-08-01] MEDS ORDERED: propofoL 200 MG/20 ML VIAL IV ONE (12:48)
[2021-08-01] MEDS ORDERED: MIDAZOLAM 2 MG/2 ML INJ IV NR (13:00)
--- NOTE | 2021-08-01 13:17 | Progress Note ---
Assessment and Plan Assessment and plan: #Acute cholecystitis #Elevated transaminasesimproving #Hyperbilirubinemiaimproving Continue analgesics as needed and transition to soft GI diet per general surgery Status post MRCP (07/29/2021) unremarkable for gallstones and biliary tree. HIDA scan unremarkable for biliary obstruction. General surgery consulted; appreciate recs Patient continues to have uptrending alkaline phosphatase. General surgery recommending laparoscopic cholecystectomy with intraoperative cholangiogram to assess for radiolucent stones. Patient has consented. #Fluid overloadresolved Supportive care, dialysis as per renal team, monitor fluid balance. #ESRD (end stage renal disease) on dialysis Nephrology team consulted in ED, strict I/O, avoid nephrotoxic agents, dialysis as per renal team. #Mild protein caloric malnutrition Albumin 3.2 Starting dietary supplementation #Seizure disorder Continue antiepileptic therapy, seizure precautions. #Advanced care planning -Disease education conducted, care plan discussed, diagnoses discussed, prognosi s discussed, and patient acknowledges understanding with care plan -Time: +30 min #Discharge planning - Patient is pending ability to tolerate p.o. intake and improvement of biliary labs - Case management has been made aware. - Discharge is tentatively 24-48 hours Disposition Plan: Continue medical management Total Time Spent with Patient (Minutes): 45 minutes History Interval history: No acute events overnight. Hospitalist Physical - Constitutional Vitals: Temp Pulse Resp BP Pulse Ox 98.3 F 85 14 152/97 98 08/01/21 11:55 08/01/21 11:55 08/01/21 11:55 08/01/21 11:55 08/01/21 11:55 General appearance: Present: no acute distress, well-nourished - EENT Eyes: Present: PERRL, EOM intact ENT: hearing intact, clear oral mucosa, dentition normal - Neck Neck: Present: supple, normal ROM - Respiratory Respiratory effort: normal - Cardiovascular Rhythm: regular Heart Sounds: Present: S1 & S2 - Extremities Extremities: no ischemia, pulses intact, pulses symmetrical, No edema, normal temperature, normal color, Full ROM, abnormal (Left upper extremity AV fistula with palpable thrill) Peripheral Pulses: within normal limits - Abdominal General gastrointestinal: soft, non-tender, non-distended, normal bowel sounds - Integumentary Integumentary: Present: clear, warm, dry - Psychiatric Psychiatric: appropriate mood/affect, intact judgment & insight, memory intact, cooperative - Neurologic Neurologic: CNII-XII intact, moves all extremities - Allied Health Allied health notes reviewed: nursing Results - Labs CBC & Chem 7: 07/31/21 05:59 08/01/21 04:52 Labs: Laboratory Last Values WBC 6.0 K/mm3 (4.5-11.0) 07/31/21 05:59 RBC 2.79 M/mm3 (3.65-5.03) L 07/31/21 05:59 Hgb 8.4 gm/dl (11.8-15.2) L 07/31/21 05:59 Hct 25.7 % (35.5-45.6) L 07/31/21 05:59 MCV 92 fl (84-94) 07/31/21 05:59 MCH 30 pg (28-32) 07/31/21 05:59 MCHC 33 % (32-34) 07/31/21 05:59 RDW 18.6 % (13.2-15.2) H 07/31/21 05:59 Plt Count 105 K/mm3 (140-440) L 07/31/21 05:59 Lymph % (Auto) Quality Control Assessor 07/31/21 05:59 [place] % (Auto) 5.7 % (0.0-7.3) 07/28/21 10:28 Eos % (Auto) 1.0 % (0.0-4.3) 07/28/21 10:28 Baso % (Auto) 1.2 % (0.0-1.8) 07/28/21 10:28 Lymph # (Auto) 0.7 K/mm3 (1.2-5.4) L 07/28/21 10:28 [place] # (Auto) 0.1 K/mm3 (0.0-0.8) 07/28/21 10:28 Eos # (Auto) 0.0 K/mm3 (0.0-0.4) 07/28/21 10:28 Baso # (Auto) 0.0 K/mm3 (0.0-0.1) 07/28/21 10:28 Add Manual Diff Complete 07/31/21 05:59 Total Counted 100 07/31/21 05:59 Seg Neutrophils % Quality Control Assessor 07/31/21 05:59 Seg Neuts % (Manual) 38.0 % (40.0-70.0) L 07/31/21 05:59 Band Neutrophils % 0 % 07/31/21 05:59 Lymphocytes % (Manual) 45.0 % (13.4-35.0) H 07/31/21 05:59 Reactive Lymphs % (Man) 0 % 07/31/21 05:59 Monocytes % (Manual) 9.0 % (0.0-7.3) H 07/31/21 05:59 Eosinophils % (Manual) 7.0 % (0.0-4.3) H 07/31/21 05:59 Basophils % (Manual) 1.0 % (0.0-1.8) 07/31/21 05:59 Metamyelocytes % 0 % 07/31/21 05:59 Myelocytes % 0 % 07/31/21 05:59 Promyelocytes % 0 % 07/31/21 05:59 Blast Cells % 0 % 07/31/21 05:59 Nucleated RBC % Not Reportable 07/31/21 05:59 Seg Neutrophils # 1.5 K/mm3 (1.8-7.7) L 07/28/21 10:28 Seg Neutrophils # Man 2.3 K/mm3 (1.8-7.7) 07/31/21 05:59 Band Neutrophils # 0.0 K/mm3 07/31/21 05:59 Lymphocytes # (Manual) 2.7 K/mm3 (1.2-5.4) 07/31/21 05:59 Abs React Lymphs (Man) 0.0 K/mm3 07/31/21 05:59 Monocytes # (Manual) 0.5 K/mm3 (0.0-0.8) 07/31/21 05:59 Eosinophils # (Manual) 0.4 K/mm3 (0.0-0.4) 07/31/21 05:59 Basophils # (Manual) 0.1 K/mm3 (0.0-0.1) 07/31/21 05:59 Metamyelocytes # 0.0 K/mm3 07/31/21 05:59 Myelocytes # 0.0 K/mm3 07/31/21 05:59 Promyelocytes # 0.0 K/mm3 07/31/21 05:59 Blast Cells # 0.0 K/mm3 07/31/21 05:59 WBC Morphology Not Reportable 07/31/21 05:59 Hypersegmented Neuts Not Reportable 07/31/21 05:59 Hyposegmented Neuts Not Reportable 07/31/21 05:59 Hypogranular Neuts Not Reportable 07/31/21 05:59 Smudge Cells Not Reportable 07/31/21 05:59 Toxic Granulation Not Reportable 07/31/21 05:59 Toxic Vacuolation Not Reportable 07/31/21 05:59 Dohle Bodies Not Reportable 07/31/21 05:59 Pelger-Huet Anomaly Not Reportable 07/31/21 05:59 Jazmine Rods Not Reportable 07/31/21 05:59 Platelet Estimate Consistent w auto 07/31/21 05:59 Clumped Platelets Not Reportable 07/31/21 05:59 Plt Clumps, EDTA Not Reportable 07/31/21 05:59 Large Platelets Not Reportable 07/31/21 05:59 Giant Platelets Not Reportable 07/31/21 05:59 Platelet Satelliting Not Reportable 07/31/21 05:59 Plt Morphology Comment Not Reportable 07/31/21 05:59 RBC Morphology Not Reportable 07/31/21 05:59 Dimorphic RBCs Not Reportable 07/31/21 05:59 Polychromasia Not Reportable 07/31/21 05:59 Hypochromasia 1+ 07/31/21 05:59 Poikilocytosis Not Reportable 07/31/21 05:59 Anisocytosis Not Reportable 07/31/21 05:59 Microcytosis Not Reportable 07/31/21 05:59 Macrocytosis Not Reportable 07/31/21 05:59 Spherocytes Not Reportable 07/31/21 05:59 Pappenheimer Bodies Not Reportable 07/31/21 05:59 Sickle Cells Not Reportable 07/31/21 05:59 Target Cells Not Reportable 07/31/21 05:59 Tear Drop Cells Not Reportable 07/31/21 05:59 Ovalocytes Not Reportable 07/31/21 05:59 Helmet Cells Not Reportable 07/31/21 05:59 [place] Bodies Not Reportable 07/31/21 05:59 [place] Rings Not Reportable 07/31/21 05:59 [place] Cells Not Reportable 07/31/21 05:59 Bite Cells Not Reportable 07/31/21 05:59 Crenated Cell Not Reportable 07/31/21 05:59 Elliptocytes Not Reportable 07/31/21 05:59 Acanthocytes (Spur) Not Reportable 07/31/21 05:59 Rouleaux Not Reportable 07/31/21 05:59 Hemoglobin C Crystals Not Reportable 07/31/21 05:59 Schistocytes Not Reportable 07/31/21 05:59 Malaria parasites Not Reportable 07/31/21 05:59 Mike Bodies Not Reportable 07/31/21 05:59 Hem Pathologist Commnt No 07/31/21 05:59 PT 16.4 Sec. (12.2-14.9) H 07/28/21 19:23 INR 1.18 (0.87-1.13) H 07/28/21 19:23 APTT 45.8 Sec. (24.2-36.6) H 07/28/21 19:23 Sodium 143 mmol/L (137-145) 08/01/21 04:52 Potassium 4.4 mmol/L (3.6-5.0) 08/01/21 04:52 Chloride 100.9 mmol/L (98-107) 08/01/21 04:52 Carbon Dioxide 27 mmol/L (22-30) 08/01/21 04:52 Anion Gap 20 mmol/L 08/01/21 04:52 BUN 36 mg/dL (9-20) H 08/01/21 04:52 Creatinine 9.7 mg/dL (0.8-1.3) H 08/01/21 04:52 Estimated GFR 6 ml/min 08/01/21 04:52 BUN/Creatinine Ratio 4 % 08/01/21 04:52 Glucose 107 mg/dL (75-100) H 08/01/21 04:52 Calcium 9.6 mg/dL (8.4-10.2) 08/01/21 04:52 Phosphorus 3.50 mg/dL (2.5-4.5) 08/01/21 04:52 Magnesium 2.20 mg/dL (1.7-2.3) 08/01/21 04:52 Total Bilirubin 1.20 mg/dL (0.1-1.2) 08/01/21 04:52 AST 144 units/L (5-40) H 08/01/21 04:52 ALT 222 units/L (7-56) H 08/01/21 04:52 Alkaline Phosphatase 668 units/L (35-129) H 08/01/21 04:52 NT-Pro-B Natriuret Pep 46366 pg/mL (0-450) H 07/28/21 23:26 Total Protein 7.1 g/dL (6.3-8.2) 08/01/21 04:52 Albumin 3.7 g/dL (3.9-5) L 08/01/21 04:52 Albumin/Globulin Ratio 1.1 % 08/01/21 04:52 Amylase 80 units/L (27-131) 07/28/21 10:28 Lipase 23 units/L (13-60) 07/28/21 10:28 Hepatitis A IgM Ab Non-reactive (NonReactive) 07/29/21 15:15 Hep Bs Antigen Non-reactive (Negative) 07/29/21 15:15 Hep B Core IgM Ab Non-reactive (NonReactive) 07/29/21 15:15 Hepatitis C Antibody Non-reactive (NonReactive) 07/29/21 15:15 Hayden/IV: Voiding Method Toilet Active Medications - Current Medications Current Medications: Generic Name Dose Route Start Last Admin Trade Name Freq PRN Reason Stop Dose Admin Acetaminophen 650 mg 07/28/21 19:14 07/29/21 22:49 Acetaminophen 325 Mg Tab PO 650 mg Q4H PRN Administration Pain MILD(1-3)/Fever >100.5/MALLORY Albuterol 2.5 mg 07/28/21 19:14 Albuterol 2.5 Mg/3 Ml Nebu IH Q4HRT PRN Shortness Of Breath Amlodipine Besylate 10 mg 07/29/21 10:00 08/01/21 09:43 Amlodipine 10 Mg Tab PO 10 mg DAILY CHERELLE Administration Ergocalciferol 50,000 unit 08/04/21 10:00 Ergocalciferol (Vit D2) 50,000 Unit Cap PO Mo CHERELLE Folic Acid 1 mg 07/29/21 10:00 08/01/21 09:44 Folic Acid 1 Mg Tab PO Not Given QDAY CHERELLE Hydralazine HCl 10 mg 07/28/21 21:56 08/01/21 03:45 Hydralazine 20 Mg/1 Ml Inj IV 10 mg Q6HR PRN Administration htn Hydralazine HCl 50 mg 07/31/21 22:01 08/01/21 05:42 Hydralazine 25 Mg Tab PO 50 mg Q8HR CHERELLE Administration Hydromorphone HCl 0.5 mg 07/28/21 19:14 08/01/21 08:51 Hydromorphone 0.5 Mg/0.5 Ml Inj IV 0.5 mg Q6H PRN Administration Pain , Severe (7-10) Hydromorphone HCl 0.25 mg 08/01/21 12:14 Hydromorphone 0.5 Mg/0.5 Ml Inj IV 08/01/21 20:00 Q10MIN PRN Pain, Moderate (4-6) Hydromorphone HCl 0.5 mg 08/01/21 12:14 Hydromorphone 0.5 Mg/0.5 Ml Inj IV 08/01/21 20:00 Q10MIN PRN Pain , Severe (7-10) Sodium Chloride 100 mls @ 999 mls/hr 08/01/21 11:39 Nacl 0.9% IV VERNA PRN Hypotension Sodium Chloride 1,000 mls @ 42 mls/hr 08/01/21 12:15 08/01/21 12:26 Nacl 0.9% 1000 Ml IV 08/01/21 20:00 42 mls/hr DIRECT CHERELLE Administration Levetiracetam 500 mg 07/28/21 22:00 08/01/21 09:46 Levetiracetam 500 Mg Tab PO Not Given BID CHERELLE Midazolam HCl 2 mg 08/01/21 13:00 Midazolam 2 Mg/2 Ml Inj IV 08/01/21 23:59 PREOP NR Ondansetron HCl 4 mg 07/28/21 19:14 Ondansetron 4 Mg/2 Ml Inj IV Q8H PRN Nausea And Vomiting Ondansetron HCl 4 mg 08/01/21 12:14 Ondansetron 4 Mg/2 Ml Inj IV 08/01/21 16:00 ONCE PRN Nausea And Vomiting Oxycodone/Acetaminophen 1 tab 07/28/21 19:14 Oxycodone /Acetaminophen 5-325mg Tab PO Q6H PRN Pain, Moderate (4-6) Sevelamer Carbonate 800 mg 07/29/21 08:00 08/01/21 09:44 Sevelamer Carbonate 800 Mg Tab PO Not Given TIDWM CHERELLE Sodium Chloride 10 ml 07/28/21 22:00 08/01/21 09:47 Sodium Chloride 0.9% 10 Ml Flush Syringe IV 10 ml BID CHERELLE Administration Sodium Chloride 10 ml 07/28/21 19:14 Sodium Chloride 0.9% 10 Ml Flush Syringe IV PRN PRN LINE FLUSH Zolpidem Tartrate 5 mg 07/31/21 22:02 07/31/21 22:34 Zolpidem 5 Mg Tab PO 5 mg QHS PRN Administration Sleep Nutrition/Malnutrition Assess - Dietary Evaluation Nutrition/Malnutrition Findings: Nutrition Notes Start: 07/29/21 15:43 Freq: Status: Active Protocol: Document 08/01/21 12:30 LAW (Rec: 08/01/21 12:42 LAW [id number]) Nutrition Notes Initial or Follow up Brief Note Current Diagnosis CKD (stage V CKD),Hypertension ,Malnutrition Other Pertinent Diagnosis ESRD+HD, Seizure,s/p Cholecystitis. Current Diet NPO (since 08/01 00:01). Height 5 ft 7 in Weight 63.8 kg [place] Body Weight (kg) 67.27 BMI 22.0 Weight change and time frame No body weight change in 2 days reported. Weight Status Appropriate Subjective/Other Information RD consult for routine F/U on dietary advancement. Pt currently on NPO. Previously Pt's PO intake of meals has been Good (100%), according to ADL notes. Pt is on Room Air, O2 saturation @ 97%, according to Physical Assessment History notes. Procedure ongoing on 08/01: Cholecystectomy and cholangiogram, according to Progress notes. Will assess atr F/U. Percent of energy/protein needs met: Pt currently on NPO. Nutrition Intervention Follow-Up By: 08/04/21 Additional Comments When pertinent, continue monitoring food tolerance, %PO intake of meals, and BM.
[2021-08-01] MEDS ORDERED: LIDOCAINE (1%) 10 MG/1 ML VIAL 20 ML MDV ONE (14:28)
[2021-08-01] MEDS ORDERED: BUPIVACAINE/PF (0.5%) 5 MG/1 ML 30 ML VIAL INFILTRATI ONE ×2 (14:28→14:54)
[2021-08-01] MEDS ORDERED: WATER FOR IRRIG STERILE 1,000 ML BOTTLE IR ONE (14:54)
[2021-08-01] MEDS ORDERED: LIDOCAINE (1%) 10 MG/1 ML VIAL 20 ML MDV INFILTRATI ONE (14:54)
[2021-08-01] MEDS ORDERED: iohexoL 50 ML in SODIUM CHLORIDE 0.9% 50 ML IR ONE (14:55)
[2021-08-01] MEDS ORDERED: GLYCOPYRROLATE 0.4 MG/2 ML INJ ONE (15:38)
[2021-08-01] MEDS ORDERED: dexAMETHasone 20 MG/5 ML VIAL ONE (15:38)
[2021-08-01] MEDS ORDERED: NEOSTIGMINE 10MG/10 ML INJ MDV ONE (15:38)
[2021-08-01] MEDS ORDERED: ONDANSETRON 4 MG/2 ML INJ ONE (15:38)
--- NOTE | 2021-08-01 16:10 | Operative Report ---
Operative Report Operative Report: Procedure Performed: Laparoscopic cholecystectomy with intraoperative cholangiogram Dates of Service: 08/01/2021 Primary Surgeon: Shy Jimenez MD Assisted by: Mira Barrios DO Anesthesia: General Pre-Operative Diagnosis: cholecystitis Post-Operative Diagnosis: elevated liver enzymes of unclear etiology Indications for Procedure: Patient is a 46-year-old male with end-stage renal disease who presents to the ER with severe right upper quadrant pain nausea and vomiting. He had a CT scan and abdominal ultrasound that showed edematous thickened wall of the gallbladder but no stones. He also had elevated bilirubin and other liver enzymes. Patient had both negative HIDA scan and MRCP. However, although bilirubin normalized patient's alkaline phosphatase and other liver enzymes continue to rise. After discussing treatment options with the patient it was decided to do cholecystectomy at the same time intraoperative cholangiogram to evaluate his biliary tree for any intraductal pathology. Patient signed informed consent. Description of Procedure(s): The patient was brought to the operating room and underwent general anesthesia after lower extremity SCD were placed. The abdomen was prepped and draped in the standard fashion. IV antibiotics were given and a time out was performed. Using a veress needle via a stab incision in the left subcostal region, the abdomen was insuflated to a pressure of 15mmHg. Using optivew technique, a 5mm trocar was placed just superior and to the left of the umbilicus. There was no gross injury noted to any intra-abdominal structures. After which working trocars were placed under direct visualization. A 12 mm trocar was placed in the epigastrium, and two more 5 mm trocars were inserted in the right lateral sites. The gallbladder was located and grasped at the fundus and retracted up toward the patient's right shoulder. The infundibulum was grasped and retracted laterally. A window was made between the cystic artery and the cystic duct, clearly delineating the two structures. After the critical view was verified, the cystic artery was clipped to proximal 1 distal and transected with scissors. The cystic duct was clipped distally right under the infundibulum of the gallbladder and a small incision was made into the cystic duct. A cholangiogram catheter was placed into the cystic duct. Sterile water was then injected and there was no leaks. 50% contrast mixture was then shot through the cholangiogram catheter under fluoroscopy and the dye was visible throughout the biliary tree and entered the small bowel with no obvious filling defects. After this the proximal cystic duct was then clipped with 3 clips and fully transected with scissors. The peritoneum of the gallbladder was incised with hook cautery, and the gallbladder was taken from the liver bed, ensuring hemostatis with electrocautery. The right upper quadrant was then irrigated with copious saline and aspirated as I had punctured the gallbladder spilling bile. Once the aspirate was clear the endocatch bag was placed in the abdomen and the gallbladder was then removed from the abdomen. The liver bed was examined and the trocars removed under direct visualization. The insufflation was then terminated. The epigastric incision was closed with a 1-PDS suture using a suture passer device. The skin incisions were closed using 4-0 Monocryl sutures. All the wounds dressed with dermabond. The patient tolerated the procedure well, was extubated and taken to the recovery room in satisfactory condition. 50-50 mixture of lidocaine Marcaine was infused at all incision sites. Finding(s): A fairly benign appearing gallbladder with no obvious filling defect seen on intraoperative cholangiogram. We will wait for official read by radiologist. Recommend patient follow-up with GI for evaluation of elevated liver enzymes. Intra-Operative Complications: none Specimens Removed: Gallbladder Estimated Blood Loss: <15ml Complications: none immediate
--- NOTE | 2021-08-01 17:18 | Post Anesthesia Evaluation ---
- Post Anesthesia Evaluation Patient Participated: Yes Airway Patent: Yes Stable Respiratory Function: Yes Nausea/Vomiting: No Temp > 96.8F: Yes Pain Manageable: Yes Adequeate Hydration: Yes Anesthesia Complications: No Block Receding Appropriately: Not Applicable Patient on Ventilator: No
--- NOTE | 2021-08-01 17:30 | Fluoroscopy Report ---
Operative cholangiogram one image INDICATION: Cholecystitis IMPRESSION: Single image from cholangiogram. Please see operative report. Total fluoroscopy time 31.6 seconds. 50 mL Omnipaque 300. Signer Name: Chandan Vergara MD Signed: 08/01/2021 5:26 PM Workstation Name: [id number]
[2021-08-01] MEDS: oxyCODONE /ACETAMINOPHEN 5-325MG TAB PO PRN (21:44)
[2021-08-01] MEDS: ZOLPIDEM 5 MG TAB PO PRN (21:46)
[2021-08-02] MEDS: HYDROmorphone 0.5 MG/0.5 ML INJ IV PRN (04:00)
[2021-08-02 05:21] LABS: Hematocrit 24.1 % (35.5-45.6); Hemoglobin 7.5 gm/dl (11.8-15.2); Mean Corpuscular HGB Conc 31 % (32-34); Mean Corpuscular Volume 93 fl (84-94); Platelet Count 264 K/mm3 (140-440); Red Blood Count 2.58 M/mm3 (3.65-5.03); Red Cell Distribution Width 19.3 % (13.2-15.2)
[2021-08-02 05:34] LABS: Albumin 3.4 g/dL (3.9-5); Calcium 9.1 mg/dL (8.4-10.2)
[2021-08-02] MEDS: hydrALAZINE 25 MG TAB PO SCH ×2 (05:58→14:01)
[2021-08-02 07:03] LABS: Anisocytosis 1+; Basophils % (Manual) 0 % (0.0-1.8); Eosinophils % (Manual) 0 % (0.0-4.3); Hypochromasia 1+; Ovalocytes 1+; Platelet Estimate Consistent w Auto; Total Cells Counted 100
--- NOTE | 2021-08-02 09:06 | Discharge Summary ---
Providers - Providers Date of Admission: 07/28/21 19:14 Date of discharge: 08/02/21 Attending physician: SMITH SCANLON MD 07/28/21 19:23 Consult to Physician [CONS] Routine Comment: Dr. Johnson spoke with Dr. Jimenez @ 1921 Consulting Provider: YOVANNY JIMENEZ Physician Instructions: Reason For Exam: Cholecystitis 07/28/21 20:25 Consult to Physician [CONS] Routine Comment: Consulting Provider: CONI ANGEL Physician Instructions: Reason For Exam: esrd 08/02/21 08:56 Consult to Physician [CONS] Routine Reason For Exam: Increasing alk phos despite negative imaging Consulting Provider: MARCIANO GEORGES Physician Instructions: Comment: Primary care physician: PELT GRADER Hospitalization Reason for admission: Acute cholecystitis Condition: Fair Pertinent studies: Reviewed. Procedures: Laparoscopic cholecystectomy and intraoperative cholangiogram Hospital course: 46 YO Male with ESRD on HF(T,R,Sa), Seizure Disorder, HTN presents ED for evaluation. Patient reports my stomach has been hurting". Patient states that over the past 3 days he has experienced abdominal pain. Patient states that pain is localized to the epigastric region of his abdomen. Patient acknowledges nausea, multiple episodes of vomiting. Patient states the pain is 5/10, constant, without exacerbating or alleviating factors. Patient transported to [facility] via private vehicle for further care and evaluation of the aforementioned symptoms. The patient was seen and evaluated in the emergency department. All lab and imaging studies reviewed. Patient with CT scan of the abdomen and pelvis and was found to have evidence of acute cholecystitis. Surgical team consulted in ED. Patient denies fever, chills, chest pain, palpitation, productive cough, skin rash and recent contact, ingestion of food/water from new or different sources, known exposure to COVID-19. CT abdomen and pelvis with contrast revealed gallbladder wall thickening with no internal stone disease, and a HIDA scan was recommended. Patient underwent MRCP that was found to be unremarkable for gallstones and biliary tree. Patient underwent HIDA scan that was also unremarkable. Due to the patient continued to have increasing alkaline phosphatase and transaminases, patient underwent laparoscopic cholecystectomy with cholangiogram successfully on 08/01/2021 with general surgery. Patient still continues to have increasing alkaline phosphatase.; However, patient endorses improvement in ability to tolerate oral intake. Patient is medically clear for discharge. Patient will follow-up with gastroenterology and general surgery in outpatient setting. Disposition: 01 HOME / SELF CARE / HOMELESS Final Discharge Diagnosis (Prints w/discharge instructions): Acute cholecystitis, elevated transaminases, hyperbilirubinemia, fluid overload, ESRD on hemodialysis, mild protein caloric malnutrition, seizure disorder. Time spent for discharge: 45 min Core Measure Documentation - Palliative Care Palliative Care/ Comfort Measures: Not Applicable - Core Measures Any of the following diagnoses?: none Exam - Constitutional Vitals: Temp Pulse Resp BP Pulse Ox 97.5 F L 87 18 89/56 99 08/02/21 02:33 08/02/21 05:58 08/02/21 08:00 08/02/21 05:58 08/02/21 08:00 General appearance: Present: no acute distress, well-nourished - EENT Eyes: Present: PERRL, EOM intact ENT: hearing intact, clear oral mucosa, dentition normal - Neck Neck: Present: supple, normal ROM - Respiratory Respiratory effort: normal Respiratory: bilateral: CTA - Cardiovascular Rhythm: regular Heart Sounds: Present: S1 & S2 - Extremities Extremities: no ischemia, pulses intact, pulses symmetrical, No edema, normal temperature, normal color, Full ROM, abnormal (Left upper extremity AV fistula with palpable thrill) Peripheral Pulses: within normal limits - Abdominal General gastrointestinal: Present: soft, non-tender, non-distended, normal bowel sounds Male genitourinary: Present: deferred - Rectal Rectal Exam: deferred - Integumentary Integumentary: Present: clear, warm, dry - Musculoskeletal Musculoskeletal: strength equal bilaterally - Psychiatric Psychiatric: appropriate mood/affect, intact judgment & insight, memory intact, cooperative - Neurologic Neurologic: CNII-XII intact, moves all extremities - Allied Health Allied health notes reviewed: nursing Plan Activity: advance as tolerated Diet: renal Additional Instructions: 46 YO Male with ESRD on HF(T,R,Sa), Seizure Disorder, HTN presents ED for evaluation. Patient reports my stomach has been hurting". Patient states that over the past 3 days he has experienced abdominal pain. Patient states that pain is localized to the epigastric region of his abdomen. Patient acknowledges nausea, multiple episodes of vomiting. Patient states the pain is 5/10, constant, without exacerbating or alleviating factors. Patient transported to [facility] via private vehicle for further care and evaluation of the aforementioned symptoms. The patient was seen and evaluated in the emergency department. All lab and imaging studies reviewed. Patient with CT scan of the abdomen and pelvis and was found to have evidence of acute cholecystitis. Surgical team consulted in ED. Patient denies fever, chills, chest pain, palpitation, productive cough, skin rash and recent contact, ingestion of food/water from new or different sources, known exposure to COVID-19. CT abdomen and pelvis with contrast revealed gallbladder wall thickening with no internal stone disease, and a HIDA scan was recommended. Patient underwent MRCP that was found to be unremarkable for gallstones and biliary tree. Patient underwent HIDA scan that was also unremarkable. Due to the patient continued to have increasing alkaline phosphatase and transaminases, patient underwent laparoscopic cholecystectomy with cholangiogram successfully on 08/01/2021 with general surgery. Patient still continues to have increasing alkaline phosphatase.; However, patient endorses improvement in ability to tolerate oral intake. Patient is medically clear for discharge. Patient will follow-up with gastroenterology and general surgery in outpatient setting. Care Plan Goals: Patient is medically clear for discharge. Assessment: 46 YO Male with ESRD on HF(T,R,Sa), Seizure Disorder, HTN presents ED for evaluation. Patient reports my stomach has been hurting". Patient states that over the past 3 days he has experienced abdominal pain. Patient states that pain is localized to the epigastric region of his abdomen. Patient acknowledges nausea, multiple episodes of vomiting. Patient states the pain is 5/10, constant, without exacerbating or alleviating factors. Patient transported to [facility] via private vehicle for further care and evaluation of the aforementioned symptoms. The patient was seen and evaluated in the emergency department. All lab and imaging studies reviewed. Patient with CT scan of the abdomen and pelvis and was found to have evidence of acute cholecystitis. Surgical team consulted in ED. Patient denies fever, chills, chest pain, palpitation, productive cough, skin rash and recent contact, ingestion of food/water from new or different sources, known exposure to COVID-19. CT abdomen and pelvis with contrast revealed gallbladder wall thickening with no internal stone disease, and a HIDA scan was recommended. Patient underwent MRCP that was found to be unremarkable for gallstones and biliary tree. Patient underwent HIDA scan that was also unremarkable. Due to the patient continued to have increasing alkaline phosphatase and transaminases, patient underwent laparoscopic cholecystectomy with cholangiogram successfully on 08/01/2021 with general surgery. Patient still continues to have increasing alkaline phosphatase.; However, patient endorses improvement in ability to tolerate oral intake. Patient is medically clear for discharge. Patient will follow-up with gastroenterology and general surgery in outpatient setting. Follow up with: PRIMARY CARE, [Primary Care Provider] - 3-5 Days Forms: Work/School Release Form Prescriptions: Zolpidem [Ambien] 5 mg PO QHS PRN #30 tablet PRN Reason: Sleep amLODIPine 10 mg PO DAILY #30 tab oxyCODONE /ACETAMINOPHEN [Percocet 5/325 mg] 1 tab PO Q6H PRN #12 tablet PRN Reason: Pain, Moderate (4-6) Sevelamer Carbonate [Renvela] 800 mg PO TID #90 tablet
[2021-08-02] MEDS: oxyCODONE /ACETAMINOPHEN 5-325MG TAB PO PRN ×2 (09:51→16:03)
[2021-08-02] MEDS: SEVELAMER CARBONATE 800 MG TAB PO SCH ×3 (09:51→17:10)
[2021-08-02] MEDS: FOLIC ACID 1 MG TAB PO SCH (09:51)
[2021-08-02] MEDS: levETIRAcetam 500 MG TAB PO SCH (09:52)
[2021-08-02] MEDS: amLODIPine 10 MG TAB PO SCH (09:52)
--- NOTE | 2021-08-02 10:55 | Event Note ---
Date: 08/02/21 pt seen and examined, chart reviewed, consult dictated - pt w/ continued increased lft's - ok to dc with further eval as outpt
--- NOTE | 2021-08-02 13:10 | Progress Note ---
Assessment and Plan ESRD - Seen & stable on HD Lytes - Low K bath on HD, F/u labs HTN - Optimize control, adjust meds Abd Pain - S/p Lap Cholecystectomy yesterday, F/u per GI & Surgery Pt for d/c today, will return to his Dialysis Clinic per usual schedule. Discussed with Client Services Vice President Dr. Cuellar Subjective Date of service: 08/02/21 Interval history: Pt seen on HD Objective - Vital Signs Vital signs: Vital Signs - 12hr 08/02/21 08/02/21 08/02/21 02:33 05:58 08:00 Temperature 97.5 F L Pulse Rate 87 Respiratory 20 18 Rate Blood Pressure 89/56 O2 Sat by Pulse 100 99 Oximetry 08/02/21 09:52 Temperature Pulse Rate 71 Respiratory Rate Blood Pressure 127/82 O2 Sat by Pulse Oximetry - General Appearance General appearance: other (Awake & alert) EENT: PERRL Neck: no JVD Respiratory: Present: Clear to Ascultation Cardiology: regular, S1S2 Gastrointestinal: normal Neurologic: no focal deficit, alert and oriented x3 - Lab 08/02/21 04:49 08/02/21 04:49 Most recent lab results Calcium 9.1 mg/dL (8.4-10.2) 08/02/21 04:49 Phosphorus 3.50 mg/dL (2.5-4.5) 08/01/21 04:52 Magnesium 2.20 mg/dL (1.7-2.3) 08/01/21 04:52 Medications & Allergies - Medications Allergies/Adverse Reactions: Allergies Penicillins Allergy (Verified 07/29/21 12:14) Itching Home Medications: Home Medications Medication Instructions Recorded Confirmed Last Taken Type Ferric Citrate (Nf) [Auryxia] 630 mg PO TIDWM 07/29/21 07/29/21 07/27/21 History Hydralazine HCl 50 mg PO BID 07/29/21 07/29/21 07/27/21 History Sodium Zirconium Cyclosilicate 10 gm PO Q48H 07/29/21 07/29/21 07/27/21 History [Lokelma] cloNIDine [Catapres] 0.1 mg PO TID 07/29/21 07/29/21 07/27/21 History Sevelamer Carbonate [Renvela] 800 mg PO TID #90 tablet 08/02/21 Unknown Rx Zolpidem [Ambien] 5 mg PO QHS PRN #30 tablet 08/02/21 Unknown Rx amLODIPine 10 mg PO DAILY #30 tab 08/02/21 Unknown Rx oxyCODONE /ACETAMINOPHEN [Percocet 1 tab PO Q6H PRN #12 tablet 08/02/21 Unknown Rx 5/325 mg] Active Medications: Generic Name Dose Route Start Last Admin Trade Name Freq PRN Reason Stop Dose Admin Acetaminophen 650 mg 07/28/21 19:14 07/29/21 22:49 Acetaminophen 325 Mg Tab PO 650 mg Q4H PRN Administration Pain MILD(1-3)/Fever >100.5/MALLORY Albuterol 2.5 mg 07/28/21 19:14 Albuterol 2.5 Mg/3 Ml Nebu IH Q4HRT PRN Shortness Of Breath Amlodipine Besylate 10 mg 07/29/21 10:00 08/02/21 09:52 Amlodipine 10 Mg Tab PO 10 mg DAILY CHERELLE Administration Ergocalciferol 50,000 unit 08/04/21 10:00 Ergocalciferol (Vit D2) 50,000 Unit Cap PO Mo CHERELLE Folic Acid 1 mg 07/29/21 10:00 08/02/21 09:51 Folic Acid 1 Mg Tab PO 1 mg QDAY CHERELLE Administration Hydralazine HCl 10 mg 07/28/21 21:56 08/01/21 03:45 Hydralazine 20 Mg/1 Ml Inj IV 10 mg Q6HR PRN Administration htn Hydralazine HCl 50 mg 07/31/21 22:01 08/02/21 05:58 Hydralazine 25 Mg Tab PO Not Given Q8HR CHERELLE Hydromorphone HCl 0.5 mg 07/28/21 19:14 08/02/21 04:00 Hydromorphone 0.5 Mg/0.5 Ml Inj IV 0.5 mg Q6H PRN Administration Pain , Severe (7-10) Sodium Chloride 100 mls @ 999 mls/hr 08/01/21 11:39 Nacl 0.9% IV VERNA PRN Hypotension Levofloxacin/Dextrose 500 mg in 100 mls @ 100 mls/hr 08/03/21 10:00 Levaquin 500mg/100ml IV Q48H [facility] Protocol Levetiracetam 500 mg 07/28/21 22:00 06/18/22 09:52 Levetiracetam 500 Mg Tab PO Not Given BID CHERELLE Ondansetron HCl 4 mg 07/28/21 19:14 Ondansetron 4 Mg/2 Ml Inj IV Q8H PRN Nausea And Vomiting Oxycodone/Acetaminophen 1 tab 07/28/21 19:14 08/02/21 09:51 Oxycodone /Acetaminophen 5-325mg Tab PO 1 tab Q6H PRN Administration Pain, Moderate (4-6) Sevelamer Carbonate 800 mg 07/29/21 08:00 08/02/21 09:51 Sevelamer Carbonate 800 Mg Tab PO 800 mg TIDWM CHERELLE Administration Sodium Chloride 10 ml 07/28/21 22:00 08/02/21 09:52 Sodium Chloride 0.9% 10 Ml Flush Syringe IV 10 ml BID CHERELLE Administration Sodium Chloride 10 ml 07/28/21 19:14 Sodium Chloride 0.9% 10 Ml Flush Syringe IV PRN PRN LINE FLUSH Zolpidem Tartrate 5 mg 07/31/21 22:02 08/01/21 21:46 Zolpidem 5 Mg Tab PO 5 mg QHS PRN Administration Sleep
[2021-08-02 16:05] VITALS: BP 115/72
--- NOTE | 2021-08-03 03:14 | Consultation ---
DATE OF CONSULTATION: 08/02/2021 REFERRING PHYSICIAN: Carol Ramirez MD INDICATION: Increased liver function tests. HISTORY OF PRESENT ILLNESS: The patient is a 46-year-old male with history of end-stage renal disease, on dialysis, seizure disorder and hypertension. The patient presented with abdominal pain and epigastric pain and was admitted on 07/28/2021. The patient had evaluation, which included liver function tests which were elevated. The patient subsequently had ultrasound and CT scan was subsequently diagnosed with cholecystitis. Again, the patient was admitted for surgical evaluation. The patient subsequently had an MRCP also done, which was negative. The patient subsequently had a laparoscopic cholecystectomy performed on 08/01/2021 by surgical team. The patient continued to have increased liver function tests. The patient had intraoperative cholangiogram which was negative and subsequently had an MRCP which was also negative. GI consulted to aid in management. PAST MEDICAL HISTORY: 1. End-stage renal disease, on dialysis. 2. Hypertension. 3. Seizure disorder. MEDICATIONS: Reviewed and updated in chart. ALLERGIES: PENICILLIN. SOCIAL HISTORY: Reports social alcohol, denies tobacco. FAMILY HISTORY: Negative for colon cancer, IBD, or liver disease. REVIEW OF SYSTEMS: GENERAL: Reports some weakness. HEENT: Denies visual complaints or tinnitus. PULMONARY: Denies shortness of breath, cough or chest pain. GASTROINTESTINAL: Reports abdominal pain, now improving. All points of 13-point review of system otherwise negative. PHYSICAL EXAMINATION: VITAL SIGNS: Temperature of 97.5, pulse ____, respirations 18, blood pressure 105/70. GENERAL: Fairly nourished male in no acute distress. HEENT: Pupils equal, round and reactive. PULMONARY: Clear to auscultation bilaterally. CARDIOVASCULAR: Regular rate and rhythm. Normal S1, S2. SKIN: No obvious rashes. LABORATORY DATA: Pertinent for white count of 11.7, hemoglobin and hematocrit of 7.5 and 24, platelet count of 264. Chem-7, sodium of 137, potassium 6, chloride 100, CO2 of 23, BUN and creatinine are 54 and 12.5, AST and ALT of 80 and 154 with an alkaline phosphatase of ____ and a total bilirubin of 0.9. HIDA scan performed on 07/30/2021 was negative. MRCP on 07/29 was also negative for biliary stone. Intraoperative cholangiogram performed on 08/01/2021 was negative for stones or pathology. ASSESSMENT: A 46-year-old male with multiple medical problems as noted above, admitted with cholecystitis, status post laparoscopic cholecystectomy. GI is consulted for increased liver function tests. Overall, liver function tests are increasing. The patient has no GI complaints. Possible sequelae from his gallbladder disease versus other. The patient is slated for discharge today. PLAN: 1. We will review all imaging and labs. 2. Acute hepatitis panel. 3. Diet as tolerated. 4. Okay to discharge from GI standpoint with plans to follow up as an outpatient. We will repeat labs with further management based on results. 5. If the patient kept in the hospital, we will follow. TID: [id number] RECEIPT: [id number] LIZETT/STEPHEN/JEANMARIE/LULY
[2021-08-04] MEDS ORDERED: [UNRECOGNIZED DRUG - OTHER] PO SCH (10:00)
[2021-08-04] MEDS ORDERED: ERGOCALCIFEROL (VIT D2) 50,000 UNIT CAP PO SCH (10:00)
[2021-08-04] MEDS ORDERED: CHOLECALCIFEROL 50000 UNIT PO SCH (10:00)
== END 2021-08-02 17:45 | disposition home or self-care (01) | DRG 417 ==
LOC: ED 09:54 → 3A 19:14
PROVIDERS: ADMIT Internal Medicine; ATTEND Student in an Organized Health Care Education/Training Program
PROC: 5A1D70Z Performance of Urinary Filtration, Intermittent, Less than 6 Hours Per Day (ICD-10-PCS; 2021-07-29)
PROC: 5A1D70Z Performance of Urinary Filtration, Intermittent, Less than 6 Hours Per Day (ICD-10-PCS; 2021-07-31)
PROC: 0FT44ZZ Resection of Gallbladder, Percutaneous Endoscopic Approach (ICD-10-PCS; principal; 2021-08-01)
PROC: BF121ZZ Fluoroscopy of Gallbladder using Low Osmolar Contrast (ICD-10-PCS; 2021-08-01)
PROC: 5A1D70Z Performance of Urinary Filtration, Intermittent, Less than 6 Hours Per Day (ICD-10-PCS; 2021-08-02)
DX: K81.0 Acute cholecystitis (principal); N18.6 End stage renal disease; E87.70 Fluid overload, unspecified; I12.0 Hypertensive chronic kidney disease with stage 5 chronic kidney disease or end stage renal disease; G40.909 Epilepsy, unspecified, not intractable, without status epilepticus; E87.5 Hyperkalemia; E44.1 Mild protein-calorie malnutrition; Z68.22 Body mass index [BMI] 22.0-22.9, adult; Z88.0 Allergy status to penicillin; Z82.49 Family history of ischemic heart disease and other diseases of the circulatory system
CPT/HCPCS: 36415; 74177; 74181; 74300; 76705; 78226; 80048; 80053; 80074; 82150; 83690; 83735; 83880; 84100; 85007; 85025; 85610; 85730; 88304; 93005; G0378; J1815; J3490; A9537; J0360; J1100; J1170; J2270; J2405; J2704; J2710; J3010; J7030; Q9967

== ENCOUNTER 2021-08-07 09:41 | Emergency (ER) | payer MEDICAID ==
[2021-08-07 10:56] LABS: Basophils # (Auto) 0.1 K/mm3 (0.0-0.1); Basophils % (Auto) 1.3 % (0.0-1.8); Eosinophils # (Auto) 0.2 K/mm3 (0.0-0.4); Eosinophils % (Auto) 2.8 % (0.0-4.3); Hematocrit 20.4 % (35.5-45.6); Hemoglobin 6.7 gm/dl (11.8-15.2); Lymphocytes # (Auto) 2.9 K/mm3 (1.2-5.4); Lymphocytes % (Auto) 37.9 % (13.4-35.0); Mean Corpuscular HGB Conc 33 % (32-34); Mean Corpuscular Volume 94 fl (84-94); Monocytes # (Auto) 0.8 K/mm3 (0.0-0.8); Monocytes % (Auto) 9.9 % (0.0-7.3); Platelet Count 431 K/mm3 (140-440); Red Blood Count 2.17 M/mm3 (3.65-5.03)
[2021-08-07 11:13] LABS: Albumin 3.8 g/dL (3.9-5); Calcium 9.4 mg/dL (8.4-10.2); Red Cell Distribution Width 20.1 % (13.2-15.2)
--- NOTE | 2021-08-07 17:00 | Emergency Department Report ---
ED General Adult HPI - General Chief complaint: Recheck/Abnormal Lab/Rx Stated complaint: POST OP/LOW HEMOGLOBLIN PUI?: No Time Seen by Provider: 08/07/21 16:44 Source: patient Mode of arrival: Ambulatory Limitations: No Limitations - History of Present Illness Initial comments: 46-year-old male with medical history of hypertension also end-stage renal disease who is hemodialysis dependent who gets dialyzed Wednesday and Wednesday was instructed coming to the emergency room today due to hemoglobin being in the 6 that was true this past Wednesday when he was at dialysis. According patient he was dialyzed for 3 hours and 45 minutes on Wednesday but today he when he went to dialysis he finished a whole session. According to patient he had acute cholecystitis recently and cholecystectomy on August 01. Patient current denies any abdominal discomfort. According patient he current denies any fever chill night sweat dizziness blurred vision lightheadedness headache tinnitus ear pain runny nose sore throat loss of taste or smell chest pain palpitation short breath cough abdominal pain nausea vomiting diarrhea constipation change in stool color joint pain muscle pain new rash and heat or cold intolerance. Severity scale (0 -10): 0 - Related Data Home Medications Medication Instructions Recorded Confirmed Last Taken Ferric Citrate (Nf) [Auryxia] 630 mg PO TIDWM 07/29/21 07/29/21 07/27/21 Hydralazine HCl 50 mg PO BID 07/29/21 07/29/21 07/27/21 Sodium Zirconium Cyclosilicate 10 gm PO Q48H 07/29/21 07/29/21 07/27/21 [Lokelma] cloNIDine [Catapres] 0.1 mg PO TID 07/29/21 07/29/21 07/27/21 Previous Rx's Medication Instructions Recorded Last Taken Type Sevelamer Carbonate [Renvela] 800 mg PO TID #90 tablet 08/02/21 Unknown Rx Zolpidem [Ambien] 5 mg PO QHS PRN #30 tablet 08/02/21 Unknown Rx amLODIPine 10 mg PO DAILY #30 tab 08/02/21 Unknown Rx oxyCODONE /ACETAMINOPHEN [Percocet 1 tab PO Q6H PRN #12 tablet 08/02/21 Unknown Rx 5/325 mg] Allergies Allergy/AdvReac Type Severity Reaction Status Date / Time Penicillins Allergy Itching Verified 08/07/21 10:30 ED Review of Systems ROS: Stated complaint: POST OP/LOW HEMOGLOBLIN Other details as noted in HPI Constitutional: no symptoms reported Eyes: as per HPI ENT: as per HPI Respiratory: no symptoms reported Cardiovascular: as per HPI Endocrine: no symptoms reported Gastrointestinal: as per HPI Genitourinary: as per HPI Musculoskeletal: as per HPI Skin: as per HPI Neurological: as per HPI Psychiatric: as per HPI Hematological/Lymphatic: as per HPI ED Past Medical Hx - Past Medical History Previous Medical History?: Yes Hx Hypertension: Yes Hx Congestive Heart Failure: No Hx Diabetes: No Hx Renal Disease: Yes (Dialysis Tue-Thr-Sat) Hx Seizures: Yes (Last two years ago) Hx Asthma: No Hx COPD: No Hx HIV: No - Surgical History Additional Surgical History: AV Fistula Left arm - Social History Smoking Status: Never Smoker - Medications Home Medications: Home Medications Medication Instructions Recorded Confirmed Last Taken Type Ferric Citrate (Nf) [Auryxia] 630 mg PO TIDWM 07/29/21 07/29/21 07/27/21 History Hydralazine HCl 50 mg PO BID 07/29/21 07/29/21 07/27/21 History Sodium Zirconium Cyclosilicate 10 gm PO Q48H 07/29/21 07/29/21 07/27/21 History [Lokelma] cloNIDine [Catapres] 0.1 mg PO TID 07/29/21 07/29/21 07/27/21 History Sevelamer Carbonate [Renvela] 800 mg PO TID #90 tablet 08/02/21 Unknown Rx Zolpidem [Ambien] 5 mg PO QHS PRN #30 tablet 08/02/21 Unknown Rx amLODIPine 10 mg PO DAILY #30 tab 08/02/21 Unknown Rx oxyCODONE /ACETAMINOPHEN [Percocet 1 tab PO Q6H PRN #12 tablet 08/02/21 Unknown Rx 5/325 mg] ED Physical Exam - General Limitations: No Limitations General appearance: alert, in no apparent distress - Head Head exam: Present: atraumatic, normocephalic, normal inspection - Eye Eye exam: Present: normal appearance, PERRL Pupils: Present: normal accommodation - ENT ENT exam: Present: normal exam, normal orophraynx - Neck Neck exam: Present: normal inspection - Respiratory Respiratory exam: Present: normal lung sounds bilaterally - Cardiovascular Cardiovascular Exam: Present: regular rate, normal rhythm, normal heart sounds - GI/Abdominal GI/Abdominal exam: Present: soft, other (Laparoscopic scar that appears clean dry and intact with no signs of infection.). Absent: distended, tenderness, guarding, rebound - Extremities Exam Extremities exam: Present: normal inspection, full ROM - Back Exam Back exam: Present: normal inspection, full ROM - Neurological Exam Neurological exam: Present: alert, altered, oriented X3, CN II-XII intact, normal gait - Psychiatric Psychiatric exam: Present: normal affect, normal mood - Skin Skin exam: Present: normal color ED Course Vital Signs 08/07/21 08/07/21 08/07/21 10:26 16:48 17:01 Temperature 98.6 F Pulse Rate 79 68 70 Respiratory 20 17 12 Rate Blood Pressure 134/82 Blood Pressure 109/67 [Right] O2 Sat by Pulse 100 100 Oximetry 08/07/21 08/07/21 08/07/21 17:15 17:31 17:45 Temperature Pulse Rate 69 64 62 Respiratory 14 12 15 Rate Blood Pressure 133/77 132/80 133/77 Blood Pressure [Right] O2 Sat by Pulse 93 100 100 Oximetry 08/07/21 08/07/21 08/07/21 18:01 18:15 18:31 Temperature Pulse Rate 59 L 73 74 Respiratory 12 19 21 Rate Blood Pressure 131/79 135/85 135/85 Blood Pressure [Right] O2 Sat by Pulse 100 100 Oximetry 08/07/21 08/07/21 08/07/21 18:33 18:45 19:01 Temperature 98.2 F Pulse Rate 74 72 65 Respiratory 17 14 15 Rate Blood Pressure 132/91 132/91 132/91 Blood Pressure [Right] O2 Sat by Pulse 100 100 100 Oximetry 08/07/21 08/07/21 08/07/21 19:15 20:06 20:34 Temperature 98.0 F Pulse Rate 64 65 65 Respiratory 13 16 16 Rate Blood Pressure 132/91 180/87 Blood Pressure 166/83 [Right] O2 Sat by Pulse 100 97 99 Oximetry 08/07/21 08/07/21 08/07/21 22:38 23:26 23:39 Temperature Pulse Rate 69 70 72 Respiratory 16 16 Rate Blood Pressure 204/105 Blood Pressure 190/96 196/98 [Right] O2 Sat by Pulse 100 98 Oximetry - Reevaluation(s) Reevaluation #1: 08/07/21 18:19 PATIENT HAVE NOT YEP PRODUCE SAMPLE. WAITING FOR NURSE TO HANG THE 1ST BLOOD FOR TRANSFUSION. Reevaluation #2: 08/07/21 20:18 NURSE STARTING 1U PRBC TRANSFUSION NOW AND WILL RUN OVER 2 HOURS. WILL REPEAT LAB AROUND 22:30PM. FOBT NEGATIVE THEREFORE LIKELY ANEMIA OF CHRONIC DISEASE VS LESS LIKELY INTRAABDOMINAL BLEED FROM SURGICAL COMPLICATION PATIENT HAS SURGERY A WHILE AGO AND PATIENT DENIES ANY ABDOMINAL DISCOMFORT. 08/07/21 20:27 SUPERVISOR FINE GRADING JUST INFORMED ME SHE CAN'T START THE BLOOD TRANSFUSION AND WILL NEED CHARGE NURSE TO START; PENDING FOR CHARGE NURSE TO VERIFY AND START TRANSFUSION. 08/07/21 23:28 PATIENT STATES HE TAKES AMLODIPINE 10MG AND CLONIDINE 0.1MG EVERY NIGHT; BP ELEVATED AND WILL GIVE HOME MEDICATION. CURRENTLY PENDING REPEAT H/H ED Medical Decision Making - Lab Data Result diagrams: 08/07/21 23:27 08/07/21 10:36 Critical care attestation.: If time is entered above; I have spent that time in minutes in the direct care of this critically ill patient, excluding procedure time. ED Disposition Clinical Impression: Anemia in chronic kidney disease, on chronic dialysis, Elevated blood pressure reading, Anemia Disposition: 01 HOME / SELF CARE / HOMELESS Is pt being admited?: No Does the pt Need Aspirin: No Condition: Stable Time of Disposition: 23:29
[2021-08-07] MEDS ORDERED: SODIUM CHLORIDE 0.9% 500 ML 500 ML IV ONE (19:02)
[2021-08-07] MEDS ORDERED: SODIUM CHLORIDE 0.9% 500 ML 500 ML ONE (21:09)
[2021-08-07] MEDS ORDERED: amLODIPine 5 MG TAB PO ONE (23:27)
[2021-08-07] MEDS ORDERED: cloNIDine 0.1 MG TAB PO ONE (23:27)
[2021-08-07 23:40] VITALS: BP 204/105
[2021-08-07 23:59] LABS: Hematocrit 23.9 % (35.5-45.6)
== END 2021-08-08 00:55 | disposition home or self-care (01) ==
LOC: ED 09:41
DX: D64.9 Anemia, unspecified (principal); I12.0 Hypertensive chronic kidney disease with stage 5 chronic kidney disease or end stage renal disease; N18.6 End stage renal disease; R56.9 Unspecified convulsions; Z88.0 Allergy status to penicillin; Z79.899 Other long term (current) drug therapy
CPT/HCPCS: 36415; 36430; 80053; 82270; 85014; 85018; 85025; 86850; 86900; 86901; 86920; 99283; J7040; P9016